=== PATIENT | female | born 1960 | race Caucasian/White ===

== ENCOUNTER 2019-10-18 07:35 | Outpatient (CLI) | payer MEDICARE, MEDICAID, SELFPAY ==
--- NOTE | ~2019-10-18 | MM_ITS ---
EXAMINATION: MM screening tanner BI w pamela HISTORY: Screening mammogram, family history of breast cancer in her mother. TECHNIQUE: Craniocaudal and mediolateral oblique 3-D tomosynthesis images were obtained and synthetic 2-D images were generated. CAD analysis was submitted and interpreted. COMPARISON: No prior mammogram is available for comparison at this institution. BREAST PARENCHYMAL COMPOSITION: There are scattered areas of fibroglandular density. FINDINGS: RIGHT BREAST: There are grouped calcifications in the posterior third of the lower, slightly outer br east best appreciated 13 cm from the nipple on the craniocaudal view. LEFT BREAST: A mass is present in the middle third of the upper inner breast 11 cm from the nipple be st appreciated on the mediolateral oblique view. IMPRESSION: 1. Bilateral breast findings which may represent the patient's baseline however no comparison is curr ently available. 2. Comparison with prior mammograms is necessary. BI-RADS Category 0: Incomplete: Needs comparison with prior mammograms. Reviewed, dictated and finalized at location A. IMPRESSION: 1. Bilateral breast findings which may represent the patient's baseline however no comparison is currently available. 2. Comparison with prior mammograms is necessary. BI-RADS Category 0: Incomplete: Needs comparison with prior mammograms.
[2019-10-18 08:16] LABS: Hemoglobin A1C 9.8 % (<5.7)
[2019-10-18 08:38] LABS: Alanine Aminotransferase 51 U/L (14-59); Albumin Level 2.7 g/dL (3.4-5.0); Alkaline Phosphatase 82 U/L (46-116); Anion Gap 3 mmol/L (8-16); Aspartate Amino Transferase 31 U/L (15-37); Bilirubin,Total 0.3 mg/dL (0.00-1.00); Blood Urea Nitrogen 15 mg/dL (7-18); Calcium 8.8 mg/dL (8.5-10.1); Carbon Dioxide 34 mmol/L (21-32); Chloride 104 mmol/L (98-108); Estimated Glomerular Filt Rate > 60; Glucose 163 mg/dL (70-99); Osmolality Calculated 296 mOsm/kg (285-295); Potassium 4.5 mmol/L (3.5-5.1); Sodium 141 mmol/L (136-145); Total Protein 6.6 g/dL (6.4-8.2)
[2019-10-18 08:41] LABS: Free T4 Free Thyroxine Reflex 1.07 ng/dL (0.76-1.46); Thyroid Stimulating Hormone Reflex 3.75 u/IU/mL (0.36-3.74)
== END 2019-10-18 07:36 | disposition home or self-care (01) ==
PROVIDERS: PCP Family Medicine
DX: R79.89 Other specified abnormal findings of blood chemistry (principal); E11.9 Type 2 diabetes mellitus without complications; Z12.31 Encounter for screening mammogram for malignant neoplasm of breast
CPT/HCPCS: 36415; 77063; 77067; 80053; 83036; 84439; 84443

== ENCOUNTER 2020-05-12 09:53 | Outpatient (CLI) | payer MEDICARE, SELFPAY ==
[2020-05-12 10:21] LABS: Add Urine Microscopic? YES; Appearance Urine Clear (Clear); Bilirubin Urine Negative (Negative); Blood Urine 2+ (Negative); Color Urine Yellow (Yellow); Glucose Urine UA Negative (Negative); Ketones Urine Negative (Negative); Leukocyte Esterase Ur 1+ LEU/UL (Negative); Nitrate Urine Negative (Negative); Protein Urine Trace (Negative); Specific Grav Ur 1.025 (1.010-1.020); Urobilinogen Urine 0.2 mg/dL (0.2-1.0)
[2020-05-12 10:26] LABS: Bacteria Urine 2+ /hpf; Squamous Epithelial Cell Urine Moderate /hpf (Few); WBC Urine 0-3 /hpf (0-3)
[2020-05-12 10:30] LABS: Hemoglobin A1C 7.2 % (<5.7)
[2020-05-12 11:03] LABS: Alanine Aminotransferase 21 U/L (14-59); Albumin Level 2.9 g/dL (3.4-5.0); Alkaline Phosphatase 79 U/L (46-116); Anion Gap 6 mmol/L (8-16); Aspartate Amino Transferase 17 U/L (15-37); Bilirubin,Total 0.5 mg/dL (0.00-1.00); Blood Urea Nitrogen 18 mg/dL (7-18); Calcium 8.6 mg/dL (8.5-10.1); Carbon Dioxide 36 mmol/L (21-32); Chloride 102 mmol/L (98-108); Cholesterol 132 mg/dL (0-200); Estimated Glomerular Filt Rate > 60; Glucose 90 mg/dL (70-99); HDL Direct 33 mg/dL (40-60); LDL Cholesterol Calculated 75 mg/dL (<130); Osmolality Calculated 299 mOsm/kg (285-295); Potassium 4.6 mmol/L (3.5-5.1); Sodium 144 mmol/L (136-145); Total Protein 6.6 g/dL (6.4-8.2); Triglycerides 122 mg/dL (0-150)
== END 2020-05-12 09:54 | disposition home or self-care (01) ==
PROVIDERS: PCP Family Medicine
DX: E78.2 Mixed hyperlipidemia (principal); E11.9 Type 2 diabetes mellitus without complications; R03.0 Elevated blood-pressure reading, without diagnosis of hypertension; R35.0 Frequency of micturition
CPT/HCPCS: 36415; 80053; 80061; 81001; 83036; 87086; 87088

== ENCOUNTER 2020-08-12 07:07 | Outpatient (CLI) | payer MEDICARE, SELFPAY ==
[2020-08-12 07:43] LABS: Hemoglobin A1C 7.1 % (<5.7)
[2020-08-12 08:28] LABS: Alanine Aminotransferase 27 U/L (14-59); Albumin Level 2.8 g/dL (3.4-5.0); Alkaline Phosphatase 78 U/L (46-116); Anion Gap 5 mmol/L (8-16); Aspartate Amino Transferase 15 U/L (15-37); Bilirubin,Total 0.4 mg/dL (0.00-1.00); Blood Urea Nitrogen 19 mg/dL (7-18); Calcium 8.7 mg/dL (8.5-10.1); Carbon Dioxide 34 mmol/L (21-32); Chloride 105 mmol/L (98-108); Cholesterol 123 mg/dL (0-200); Estimated Glomerular Filt Rate > 60; Glucose 66 mg/dL (70-99); HDL Direct 35 mg/dL (40-60); LDL Cholesterol Calculated 74 mg/dL (<130); Osmolality Calculated 298 mOsm/kg (285-295); Potassium 4.3 mmol/L (3.5-5.1); Sodium 144 mmol/L (136-145); Total Protein 6.4 g/dL (6.4-8.2); Triglycerides 72 mg/dL (0-150)
== END 2020-08-12 07:08 | disposition home or self-care (01) ==
LOC: CHSLAB 07:12
PROVIDERS: PCP Family Medicine
DX: E78.2 Mixed hyperlipidemia (principal); E11.9 Type 2 diabetes mellitus without complications; R03.0 Elevated blood-pressure reading, without diagnosis of hypertension
CPT/HCPCS: 36415; 80053; 80061; 83036

== ENCOUNTER 2020-10-21 16:07 | Emergency (ER) | payer MEDICARE, MEDICAID, SELFPAY ==
--- NOTE | 2020-10-21 16:14 | ED.FEMALEGU ---
HPI - Female Genitourinary General Chief complaint: Urogenital-Female Stated complaint: UTI Source: patient and RN notes reviewed Mode of arrival: ambulatory Limitations: no limitations History of Present Illness MD elicited complaint: UTI Onset (ago): day(s) (1) Severity: moderate Quality of pain: sharp and burning Consistency: intermittent Vaginal discharge: none Vaginal bleeding: none Urinary symptoms: Urgency and Frequency Exacerbating factors: none Relieving factors: none Associated symptoms: denies other symptoms Treatment prior to arrival: none Sexual activity: No Patient : No Related Data Home Medications Medication Instructions Recorded Confirmed diclofenac sodium 75 mg PO BID 10/21/20 10/21/20 dulaglutide [Trulicity] 1.5 mg SUBCUT WEEKLY 10/21/20 10/21/20 furosemide 20 mg PO DAILY 10/21/20 10/21/20 glipizide 10 mg PO TID 10/21/20 10/21/20 insulin aspart U-100 [Novolog 30 unit SUBCUT TID 10/21/20 10/21/20 Flexpen U-100 Insulin] insulin degludec [Tresiba 100 unit SUBCUT HS 10/21/20 10/21/20 FlexTouch U-200] rosuvastatin 20 mg PO DAILY 10/21/20 10/21/20 topiramate 100 mg PO ONCE 10/21/20 10/21/20 Review of Systems Review of Systems: All systems reviewed & are unremarkable except as noted in HPI and below PMFSH Past Medical History Medical History (Updated 10/21/20 @ 16:54 by Edgard Robles MD) CHF (congestive heart failure) Hyperlipidemia Migraines Morbid obesity Type 2 diabetes mellitus Surgical History Surgical History (Updated 10/21/20 @ 16:50 by Edgard Robles MD) History of bilateral tubal ligation Social History Social History (Updated 10/21/20 @ 16:50 by Edgard Robles MD) Smoking status: Never smoker Alcohol intake: never Substance use: never Exam Const: General: healthy appearing and no acute distress Nutritional Appearance: well nourished and obese morbidly obese Orientation/consciousness: patient oriented x3 Other: female nurse in room during examination. HENMT: Head: normal to inspection Ears: external ears normal Eyes: General: appearance normal, both eyes and all related structures Conjunctivae: conjunctivae normal Pupils: Equal, round and reactive pupils present EOM: EOMs intact bilaterally Neck: Neck: normal visual inspection Resp: Effort & Inspection: normal respiratory effort Auscultation: clear to auscultation bilaterally Cardio: Rate: regular rate Rhythm: regular rhythm GI: GI Palp: Yes Soft to palpation and No Tenderness to palpation present (GI) Auscultation: normal bowel sounds : General: Yes no CVA tenderness Back/Spine/Pelvis: Cervical Spine: cervical ROM normal Thoracic/Lumbar Spine: thoraco-lumbar ROM normal Skin: General skin exam: normal color Rashes: no rashes Neuro: General: patient oriented x3, moves all extremities, no meningeal signs and no focal motor deficits Speech: normal speech Gait exam (Neuro): Normal gait present Extrem: General: normal to inspection and no clubbing, cyanosis or edema Psych: Mental Status: mental status grossly normal Affect: normal affect Attitude: cooperative Thought content: Yes Normal thought content present Course Vital Signs Vital signs: Vital Signs Temperature 36.7 C 10/21/20 16:15 Pulse Rate 92 10/21/20 16:15 Respiratory Rate 17 10/21/20 16:15 Blood Pressure 157/79 H 10/21/20 16:15 Pulse Oximetry 94 10/21/20 16:15 Temperature 36.7 C 10/21/20 16:15 Pulse Rate 92 10/21/20 16:15 Respiratory Rate 17 10/21/20 16:15 Blood Pressure 157/79 H 10/21/20 16:15 Pulse Oximetry 94 10/21/20 16:15 MDM - Female Genitourinary Lab Data Labs: Lab Results 10/21/20 Range/Units 16:16 Urine Color Light yellow (Yellow) Urine Appearance Cloudy A (Clear) Urine pH 7.0 (5.0-8.0) Ur Specific [place] 1.020 (1.010-1.020) Urine Protein 2+ H (Negative) Urine Glucose (UA) Negative (Negative) Urine Ketones Negative (Neg
[2020-10-21 16:15] VITALS: BP 157/79; PULSE 92; RESP 17; TEMP 36.7; O2SAT 94
[2020-10-21 16:40] LABS: Add Urine Microscopic? YES; Appearance Urine Cloudy (Clear); Bilirubin Urine Negative (Negative); Blood Urine 3+ (Negative); Color Urine Light Yellow (Yellow); Glucose Urine UA Negative (Negative); Ketones Urine Negative (Negative); Leukocyte Esterase Ur 2+ LEU/UL (Negative); Nitrate Urine Negative (Negative); Protein Urine 2+ (Negative); Urobilinogen Urine 0.2 mg/dL (0.2-1.0)
[2020-10-21 16:43] LABS: Bacteria Urine 1+ /hpf; Squamous Epithelial Cell Urine Few /hpf (Few); WBC Urine 21-30 /hpf (0-3)
[2020-10-21 16:57] VITALS: RESP 19
== END 2020-10-21 17:00 | disposition home or self-care (01) ==
PROVIDERS: Emergency Provider Emergency Medicine; PCP Family Medicine
DX: N30.00 Acute cystitis without hematuria (principal); I50.9 Heart failure, unspecified; E78.5 Hyperlipidemia, unspecified; E11.9 Type 2 diabetes mellitus without complications; Z79.4 Long term (current) use of insulin
CPT/HCPCS: 81001; 87077; 87086; 87088; 87186; 99283

== ENCOUNTER 2020-12-11 15:15 | Outpatient (CLI) | payer MEDICARE, SELFPAY ==
[2020-12-11 16:21] LABS: SARS-CoV-2 RNA PCR Negative (Negative)
== END 2020-12-11 15:16 | disposition home or self-care (01) ==
LOC: CHSLAB 15:17
PROVIDERS: PCP Family Medicine; Visit Provider Family Medicine
DX: R53.83 Other fatigue (principal); R11.0 Nausea; Z20.822 Contact with and (suspected) exposure to COVID-19
CPT/HCPCS: C9803; U0003; U0005

== ENCOUNTER 2020-12-17 07:47 | Outpatient (CLI) | payer MEDICARE, SELFPAY ==
[2020-12-17 08:21] LABS: Hemoglobin A1C 7.2 % (<5.7)
[2020-12-17 08:52] LABS: Alanine Aminotransferase 31 U/L (14-59); Albumin Level 2.8 g/dL (3.4-5.0); Alkaline Phosphatase 91 U/L (46-116); Anion Gap 8 mmol/L (8-16); Aspartate Amino Transferase 20 U/L (15-37); Bilirubin,Total 0.4 mg/dL (0.00-1.00); Blood Urea Nitrogen 13 mg/dL (7-18); Calcium 8.2 mg/dL (8.5-10.1); Carbon Dioxide 34 mmol/L (21-32); Chloride 102 mmol/L (98-108); Estimated Glomerular Filt Rate > 60; Glucose 81 mg/dL (70-99); Osmolality Calculated 297 mOsm/kg (285-295); Potassium 4.2 mmol/L (3.5-5.1); Sodium 144 mmol/L (136-145); Total Protein 6.5 g/dL (6.4-8.2)
[2020-12-17 08:53] LABS: Free T4 Free Thyroxine Reflex 1.05 ng/dL (0.76-1.46); Thyroid Stimulating Hormone Reflex 4.26 u/IU/mL (0.36-3.74)
[2020-12-19 14:20] LABS: Vitamin D 25 Hydroxy 12 ng/mL (30-100)
== END 2020-12-17 07:48 | disposition home or self-care (01) ==
LOC: CHSLAB 07:50
PROVIDERS: PCP Family Medicine
DX: E11.9 Type 2 diabetes mellitus without complications (principal); E03.9 Hypothyroidism, unspecified; E55.9 Vitamin D deficiency, unspecified
CPT/HCPCS: 36415; 80053; 82306; 83036; 84439; 84443

== ENCOUNTER 2021-03-11 13:47 | Outpatient (CLI) | payer MEDICARE, SELFPAY ==
[2021-03-12 21:12] LABS: SARS-CoV-2 RNA PCR Negative
== END 2021-03-11 13:48 | disposition home or self-care (01) ==
LOC: CHSLAB 13:51
PROVIDERS: PCP Family Medicine; Visit Provider Family Medicine
DX: Z20.822 Contact with and (suspected) exposure to COVID-19 (principal)
CPT/HCPCS: C9803; U0003; U0005

== ENCOUNTER 2021-04-04 20:14 | Observation (INO) | payer MEDICARE, MEDICAID, SELFPAY ==
--- NOTE | ~2021-04-04 | CT_ITS ---
EXAMINATION: CTA chest PE protocol DATE: 04/04/2021 22:54 INDICATION: Shortness of breath. TECHNIQUE: Computed tomography angiography (CTA) of the chest was performed with 100 mL Omnipaque-350 intravenous contrast timed to evaluate the pulmonary arteries. Coronal maximum intensity projection 3D-reconstructions were created by the technologist. Automated exposure control and iterative reconst ruction technique were employed. The dose-length product was 916.04 mGy-cm. COMPARISON: None. FINDINGS: There is mild atelectasis in the lungs. There are faint groundglass opacities in all lobes. No pleural effusion. The heart size is normal. No pericardial effusion. There is mild left hilar and mediastinal lymphadenopathy, likely reactive. There is no pulmonary embolus. There is diffuse hepati c steatosis. There is moderate thoracic spondylosis. IMPRESSION: 1. No pulmonary embolus. Sensitivity is mildly decreased by motion artifact. 2. Faint groundglass opacities in all lobes of the lungs, likely mild pulmonary edema. 3. Mild left hilar and mediastinal lymphadenopathy, likely reactive. Reviewed, dictated and finalized at location A. UMER INSIGHT MANAGER
--- NOTE | ~2021-04-04 | XR_ITS ---
EXAMINATION: XR chest 2V DATE: 04/04/2021 21:25 INDICATION: Shortness of breath. TECHNIQUE: Frontal and lateral views of the chest were obtained. COMPARISON: Chest 2 views 10/04/2014 FINDINGS: The chest demonstrates clear lungs without pneumonia, pleural effusion, or pneumothorax. Th e heart size is normal. IMPRESSION: 1. No acute cardiopulmonary disease. Reviewed, dictated and finalized at location E. KBOOKS BOOKKEEPER
--- NOTE | ~2021-04-04 | CT_ITS ---
EXAMINATION: CT brain wo con DATE: 04/04/2021 21:24 INDICATION: Headache. TECHNIQUE: Computed tomography (CT) of the head was performed without intravenous contrast. The mA wa s adjusted according to patient size. Iterative reconstruction technique was employed. The dose-lengt h product was 605.33 mGy-cm. COMPARISON: None FINDINGS: There is no intracranial hemorrhage, acute infarction, or abnormal intracranial mass lesion . The ventricles are normal in size. The paranasal sinuses are clear. The orbits are normal. The mast oid air cells are normal. IMPRESSION: 1. Normal brain. Reviewed, dictated and finalized at location E. LANDSCAPE ARCHITECT IMPRESSION: 1. Normal brain.
[2021-04-04 20:22] VITALS: BP 184/82; PULSE 89; RESP 18; TEMP 36.3; O2SAT 93
--- NOTE | 2021-04-04 20:47 | ECG_ITS ---
Measurements Intervals [place] Rate: 98 P: 51 OR: 140 QRS: 47 QRSD: 88 T: 37 QT: 339 QTc: 435 Interpretive Statements SINUS RHYTHM POSSIBLE LEFT ATRIAL ENLARGEMENT INCOMPLETE RIGHT BUNDLE BRANCH BLOCK BASELINE ARTIFACT- I, II, III, AVL, V5-V6 BORDERLINE ECG Electronically Signed On 04-05-2021 7:33:19 BAND BIAS MACHINE OPERATOR by Lucas Tsai D.O.
--- NOTE | 2021-04-04 20:57 | ED.HA ---
HPI - Headache General Chief Complaint: Headache Stated Complaint: headache, sob Time Seen by Provider: 04/04/21 20:57 Source: patient Mode of arrival: ambulatory Limitations: no limitations History of Present Illness HPI Narrative: this is a 60-year-old female with a history of diabetes hyperlipidemia and hypertension presents with headache states that she has had migraines in the past but this is similar but more intense lasting 3 days had tried some ibuprofen with minimal relief is a throbbing occipital and frontal with some no nausea vomiting no blurry vision no neurological deficits, the patient also states that she is having shortness of breath with no wheezing no chest pain for no abdominal pain no flank pain no fever chills. MD elicited complaint: headache Pertinent past history: migraines Onset (ago): day(s) Onset description: gradually Location: occipital Severity: moderate Pain scale (0-10): 6 Quality & Timing: aching, throbbing, progressively worsening and similar to previous headaches Exacerbating factors: none Relieving factors: rest and NSAIDs Related Data Home Medications Medication Instructions Recorded Confirmed diclofenac sodium 75 mg PO BID 10/21/20 04/04/21 dulaglutide [Trulicity] 1.5 mg SUBCUT WEEKLY 10/21/20 04/04/21 furosemide 20 mg PO DAILY 10/21/20 04/04/21 glipizide 10 mg PO TID 10/21/20 04/04/21 insulin aspart U-100 [Novolog 30 unit SUBCUT TID 10/21/20 04/04/21 Flexpen U-100 Insulin] insulin degludec [Tresiba 100 unit SUBCUT HS 10/21/20 04/04/21 FlexTouch U-200] rosuvastatin 20 mg PO DAILY 10/21/20 04/04/21 Allergies Allergy/AdvReac Type Severity Reaction Status Date / Time codeine Allergy Hives Verified 04/04/21 20:44 Review of Systems Review of Systems: All systems reviewed & are unremarkable except as noted in HPI and below PMFSH Past Medical History Medical History CHF (congestive heart failure) Hyperlipidemia Migraines Morbid obesity Type 2 diabetes mellitus Surgical History Surgical History History of bilateral tubal ligation Social History Social History Smoking status: Never smoker Alcohol intake: never Substance use: never Exam Const: General: no acute distress and alert Orientation/consciousness: patient oriented x3 HENMT: Head: normal to inspection Eyes: Conjunctivae: conjunctivae normal Pupils: Equal, round and reactive pupils present EOM: EOMs intact bilaterally Direct Ophthalmoscopy: no photophobia Neck: Neck: normal visual inspection, no lymphadenopathy and no meningeal signs Chest: Chest palpation & inspection: normal inspection of the chest Resp: Effort & Inspection: normal respiratory effort Auscultation: clear to auscultation bilaterally Cardio: Rate: regular rate Rhythm: regular rhythm GI: GI Palp: Yes Soft to palpation : General: Yes no CVA tenderness Urinary Catheter: Urinary Catheter: patent and draining Back/Spine/Pelvis: Back: no CVA tenderness Skin: General skin exam: normal color Rashes: no rashes Neuro: General: patient oriented x3 and moves all extremities Psych: Mental Status: mental status grossly normal Affect: normal affect Course Course Emergency Course: Patient received 30 of IV Toradol, IV was placed and blood glucose level of 37, the patient receiving D5, EKG was reviewed, CT scan and chest x-ray reviewed, the patient had COVID test performed and labs reviewed with patient. Vital Signs Vital signs: Vital Signs Temperature 36.3 C L 04/04/21 20:22 Pulse Rate 89 04/04/21 20:22 Respiratory Rate 18 04/04/21 20:22 Blood Pressure 184/82 H 04/04/21 20:22 Pulse Oximetry 93 04/04/21 20:22 Temperature 36.3 C L 04/04/21 20:22 Pulse Rate 84 04/05/21 00:03 Respiratory Rate 20 04/05/21 00:03 Blood Pressure 159/79
[2021-04-04 21:06] LABS: Glucose Point of Care 37 mg/dl (65-105)
--- NOTE | 2021-04-04 21:08 | PC.NURSE ---
Pt c/o low blood sugar due to taking insulin and not eating dinner. Pt stated that she felt like she was sweating and having hot flashes. RN took a finger stick and got 37. Pt drank an orange juice, an orange juice with three extra sugars, and a ham sandwich.
[2021-04-04] MEDS: DEXTROSE 5% 1,000 ML 1,000 ML 100 ML IV CONT (21:24)
[2021-04-04] MEDS: KETOROLAC 30 MG/ML VIAL (*BKC) IV PUSH (21:25)
[2021-04-04 21:32] LABS: Glucose Point of Care 65 mg/dl (65-105)
[2021-04-04 21:55] LABS: Basophils Absolute Auto 0.02 K/mm3 (0.00-0.10); Basophils Percent Auto 0.2 % (0.0-1.0); Eosinophils Absolute Auto 0.27 K/mm3 (0.02-0.50); Eosinophils Percent Auto 2.6 % (1.0-6.0); Hematocrit 48.7 % (35.0-49.0); Hemoglobin 14.1 g/dL (12.0-15.0); Immature Granulocyte Absolute 0.09 K/mm3 (0.00-0.00); Immature Granulocyte Percent A 0.9 % (0.0-0.0); Lymphocytes Absolute Auto 2.54 K/mm3 (1.10-4.50); Lymphocytes Percent Auto 24.7 % (18.0-42.0); Mean Corpuscular Hemoglobin 24.7 pg (27.0-31.0); Mean Corpuscular Volume 85.4 fL (78.0-102.0); Mean Platelet Volume 10.6 fl (9.2-11.8); Monocytes Absolute Auto 0.56 K/mm3 (0.10-0.90); Monocytes Percent Auto 5.5 % (2.0-11.0); Neutrophils Absolute Auto 6.8 K/mm3 (1.7-7.2); Neutrophils Percent Auto 66.1 % (50.0-70.0); Platelet Count Result 295 K/mm3 (150-420); Red Cell Distribution Width 16.3 % (11.6-14.4); White Blood Count 10.3 K/mm3 (4.8-10.8)
[2021-04-04 22:00] VITALS: BP 162/72; PULSE 88; RESP 18; O2SAT 93
[2021-04-04 22:07] LABS: Lactic Acid Reflex 1.3 mmol/L (0.4-2.0)
--- NOTE | 2021-04-04 22:07 | PC.NURSE ---
RN rechecked blood sugar after pt returned from x-ray. Pt is at 65. Pt also notes other symptoms have been resolved.
[2021-04-04 22:16] LABS: Appearance Urine Clear (Clear); Bilirubin Urine Negative (Negative); Color Urine Light Yellow (Yellow); Glucose Urine UA Negative (Negative); Ketones Urine Negative (Negative); Leukocyte Esterase Ur Negative (Negative); Nitrate Urine Negative (Negative); Protein Urine Negative (Negative); Urobilinogen Urine 0.2 mg/dL (0.2-1.0)
[2021-04-04 22:16] LABS: Alanine Aminotransferase 39 U/L (14-59); Albumin Level 2.7 g/dL (3.4-5.0); Alkaline Phosphatase 95 U/L (46-116); Anion Gap 8 mmol/L (8-16); Aspartate Amino Transferase 18 U/L (15-37); Bilirubin,Total 0.4 mg/dL (0.00-1.00); Blood Urea Nitrogen 15 mg/dL (7-18); Calcium 8.8 mg/dL (8.5-10.1); Carbon Dioxide 35 mmol/L (21-32); Chloride 101 mmol/L (98-108); Estimated CRCL calculation 75 ml/min; Estimated Glomerular Filt Rate > 60; Glucose 67 mg/dL (70-99); Osmolality Calculated 296 mOsm/kg (285-295); Potassium 3.1 mmol/L (3.5-5.1); Sodium 144 mmol/L (136-145); Total Protein 7.6 g/dL (6.4-8.2); Troponin I 35.2 ng/L (0.00-60.4)
[2021-04-04 22:17] LABS: NT Pro B Type Natriuretic Pept 261 pg/mL (0-125)
--- NOTE | 2021-04-04 22:19 | PC.NURSE ---
lab reports d-dimer 0.99 erp made aware
[2021-04-04 22:20] LABS: D Dimer 0.99 mg/L (0.19-0.50)
[2021-04-04 22:27] LABS: Add Urine Microscopic? YES; Blood Urine Trace-lysed (Negative); Squamous Epithelial Cell Urine Few /hpf (Few)
[2021-04-04 22:39] LABS: SARS-CoV-2 RNA PCR Negative (Negative)
[2021-04-04 23:10] LABS: Glucose Point of Care 61 mg/dl (65-105)
--- NOTE | 2021-04-04 23:11 | PC.NURSE ---
RN rechecked glucose level and the glucometer reported 63. Pt received azar crackers and peanut butter with another orange juice.
[2021-04-04 23:15] VITALS: BP 119/96; PULSE 80; RESP 20; O2SAT 92
[2021-04-04] MEDS: KCL 20 MEQ/SW 100 ML 100 ML 50 MEQ IVPB (23:36)
[2021-04-05 00:03] VITALS: BP 159/79; PULSE 84; RESP 20; O2SAT 92
[2021-04-05 00:09] LABS: Glucose Point of Care 114 mg/dl (65-105)
[2021-04-05 01:10] VITALS: PULSE 77; RESP 20; O2SAT 88
[2021-04-05 01:35] VITALS: BP 165/75; PULSE 81; RESP 16; TEMP 36.6; O2SAT 97
[2021-04-05 01:43] LABS: Glucose Point of Care 89 mg/dl (65-105)
[2021-04-05 02:00] VITALS: BP 158/60; PULSE 76; RESP 20; TEMP 36.4; O2SAT 100
--- NOTE | 2021-04-05 02:14 | ADMGEN ---
This patient, Flory Diaz, was admitted to 2nd Floor Room 204-2. Patient oriented to hospital policies and general routines including ID bracelet, bed and alarms, visiting hours, pain management, procedures, bathroom and other care routines, personal items, smoking policy, room service/diet, and visiting hours. Information on how to activate the Rapid Response Team has been discussed. Patient are encouraged to report perceived risks to care and to ask questions if they do not understand what they are told or what they should do.
[2021-04-05 02:18] VITALS: BMI 54.6
--- NOTE | 2021-04-05 02:20 | PC.NURSE ---
Patient requested/given pudding and oj. Patient A&O and answered all questions. Call light in reach.
[2021-04-05 05:31] LABS: Hematocrit 46.1 % (35.0-49.0); Hemoglobin 13.3 g/dL (12.0-15.0); Mean Corpuscular HGB Conc 28.9 g/dL (32.0-36.0); Mean Corpuscular Hemoglobin 24.8 pg (27.0-31.0); Mean Corpuscular Volume 85.8 fL (78.0-102.0); Mean Platelet Volume 10.8 fl (9.2-11.8); Platelet Count Result 278 K/mm3 (150-420); Red Blood Count 5.37 M/mm3 (4.20-5.40); Red Cell Distribution Width 16.1 % (11.6-14.4); White Blood Count 8.5 K/mm3 (4.8-10.8)
[2021-04-05 05:54] LABS: Alanine Aminotransferase 37 U/L (14-59); Albumin Level 2.5 g/dL (3.4-5.0); Alkaline Phosphatase 86 U/L (46-116); Anion Gap 4 mmol/L (8-16); Aspartate Amino Transferase 17 U/L (15-37); Bilirubin,Total 0.5 mg/dL (0.00-1.00); Blood Urea Nitrogen 13 mg/dL (7-18); Calcium 8.8 mg/dL (8.5-10.1); Carbon Dioxide 37 mmol/L (21-32); Chloride 102 mmol/L (98-108); Estimated CRCL calculation 89 ml/min; Estimated Glomerular Filt Rate > 60; Glucose 124 mg/dL (70-99); Osmolality Calculated 297 mOsm/kg (285-295); Sodium 143 mmol/L (136-145)
[2021-04-05] MEDS: SODIUM CHLORIDE 0.9% IV 1,000 ML 100 ML IV CONT (06:25)
[2021-04-05 07:48] LABS: Glucose Point of Care 92 mg/dl (65-105)
[2021-04-05 08:00] VITALS: BP 163/72; PULSE 88; RESP 14; TEMP 36.4; O2SAT 97
[2021-04-05] MEDS: ROSUVASTATIN 10 MG TABLET 20 MG PO (09:17)
[2021-04-05] MEDS: FUROSEMIDE 20 MG TABLET PO (09:17)
[2021-04-05] MEDS: ENOXAPARIN 30 MG/0.3 ML SYRINGE SUB-Q (09:45)
--- NOTE | 2021-04-05 10:55 | PM.SD2 ---
Same Day Admit/Disch: HPI History of Present Illness Chief complaint: headache, sob Narrative: Flory Diaz is a 60 year old female that presented to the emergency department with complaints of a headache and shortness of breath. Patient has a past medical history of CHF, hyperlipidemia, migraine headaches, morbidly obese, and type 2 diabetes. According to patient for the last 3 days she has been having a headache that is more intense to her previous migraine headaches. Patient notes that while she was at home she did take ibuprofen with little relief. She also notes that she has had slight shortness of breath within thoses 3 days which could have possibly been anxiety due to her migraine headaches. Vital signs 163/72, 88, 14, 97.5, 97% on 2 L nasal cannula, WBCs 10.3, hemoglobin 14.1, hematocrit 48.7, platelets 295, D-dimer 0.99, sodium 144, potassium 3.1, BUN 15, creatinine 0.94, glucose 67, lactic acid 1.3, AST 18, ALT 39, troponin 35.2, BNP 261, UA with trace of blood, Covid negative, chest x-ray unremarkable, head CT normal, CTA indicates mild pulmonary edema no PE noted, EKG sinus rhythm with a heart rate of 98. Patient was admitted for hypoglycemia and hypokalemia. Before leaving ED patient condition resolved. The patient denies SOB, CP, palpitation, extremity numbness, lightheadedness, dizziness, constipation, diarrhea, chills, or fever. Patient headache resolved. Patient agrees that she is ready for discharge she has an appointment with her primary care physician next week. Discussed insulin adjustment with patient she has decided that she will wait till she sees her primary care physician next week for insulin adjustment change. Patient notes that her blood sugar bottom out because she gave herself insulin and did not eat after giving herself rapid insulin. Patient educated on hypoglycemia and informed to take her insulin right before eating and not sooner. [facility] Past Medical History Medical History CHF (congestive heart failure) Hyperlipidemia Migraines Morbid obesity Type 2 diabetes mellitus Surgical History Surgical History History of bilateral tubal ligation Family History Family History (Updated 04/05/21 @ 02:18 by Domonique G. Windham, RN) Father Diabetes mellitus Malignant neoplasm of prostate Heart disease Social History Social History Smoking status: Never smoker Second hand tobacco smoke exposure: No Alcohol intake: former Substance use: never Spiritual care concerns: No Same Day Admit/Disch: Med Pre-admit Medications Home Medications Medication Instructions Recorded Confirmed Type Tresiba FlexTouch U-200 100 unit SUBCUT HS 10/21/20 04/04/21 History Trulicity 1.5 mg SUBCUT WEEKLY 10/21/20 04/04/21 History diclofenac sodium 75 mg PO BID 10/21/20 04/04/21 History furosemide 20 mg PO DAILY 10/21/20 04/04/21 History glipizide 10 mg PO TID 10/21/20 04/04/21 History insulin aspart U-100 [Novolog 30 unit SUBCUT TID 10/21/20 04/04/21 History Flexpen U-100 Insulin] rosuvastatin 20 mg PO DAILY 10/21/20 04/04/21 History glucose [Dex4 Glucose] 4 g PO Q15M PRN #90 tablet 04/05/21 Rx lisinopril-hydrochlorothiazide 1 tablet PO DAILY #60 tablet 04/05/21 Rx potassium chloride 20 meq PO DAILY #60 tablet 04/05/21 Rx sumatriptan 20 mg INTRANASAL Q2H PRN #6 ea 04/05/21 Rx Exam Narrative: GENERAL: The obese, in no apparent distress. HEAD: normocephalic, atraumatic. EYES: PERRL. Sclera clear/white. Vision is grossly intact. EARS: External ears normal, auditory canals clear and without drainage, TMs normal without perforation. Hearing grossly intact. NOSE: External nose normal with no obvious nasal discharge, nares without redness, no rhinorrhea. THROAT: Mucous membranes moist, posterior pharynx clear. NECK: Neck supple, non-tender without
[2021-04-05 11:53] LABS: Glucose Point of Care 154 mg/dl (65-105)
[2021-04-05] MEDS: ENOXAPARIN 40 MG/0.4 ML SYRINGE (12:28)
--- NOTE | 2021-04-06 16:21 | PC.NURSE ---
Pt states she received and understood her discharge instructions. Pt also states they were all great .
== END 2021-04-05 12:40 | disposition home or self-care (01) ==
LOC: CHSED 04-05 01:00 → CHS2ND 04-05 10:32
PROVIDERS: Nurse Practitioner; Admitting Provider Emergency Medicine; Emergency Provider Emergency Medicine; Visit Provider Emergency Medicine
DX: E11.649 Type 2 diabetes mellitus with hypoglycemia without coma (principal); G43.909 Migraine, unspecified, not intractable, without status migrainosus; E87.6 Hypokalemia; I11.0 Hypertensive heart disease with heart failure; I50.9 Heart failure, unspecified; E78.5 Hyperlipidemia, unspecified; Z20.822 Contact with and (suspected) exposure to COVID-19; Z79.4 Long term (current) use of insulin; R79.1 Abnormal coagulation profile
CPT/HCPCS: 36415; 70450; 71046; 71275; 80053; 81001; 82948; 83605; 83880; 84484; 85025; 85027; 85380; 87040; 93005; 96361; 96365; 96366; 96368; 96372; 96375; 99285; A9270; C9803; G0378; J1650; J1885; J3480; J7030; J7070; Q9967; U0003; U0005

== ENCOUNTER 2021-04-13 07:40 | Outpatient (CLI) | payer MEDICARE, SELFPAY ==
[2021-04-13 08:52] LABS: Hemoglobin A1C 6.8 % (<5.7)
[2021-04-13 09:51] LABS: Alanine Aminotransferase 24 U/L (14-59); Albumin Level 2.7 g/dL (3.4-5.0); Alkaline Phosphatase 87 U/L (46-116); Anion Gap 4 mmol/L (8-16); Aspartate Amino Transferase 15 U/L (15-37); Bilirubin,Total 0.4 mg/dL (0.00-1.00); Blood Urea Nitrogen 22 mg/dL (7-18); Calcium 8.6 mg/dL (8.5-10.1); Carbon Dioxide 33 mmol/L (21-32); Chloride 102 mmol/L (98-108); Estimated Glomerular Filt Rate 60; Free T4 Free Thyroxine 0.94 ng/dL (0.76-1.46); Glucose 137 mg/dL (70-99); Osmolality Calculated 293 mOsm/kg (285-295); Potassium 4.6 mmol/L (3.5-5.1); Sodium 139 mmol/L (136-145); Thyroid Stimulating Hormone 7.04 uIU/mL (0.36-3.74); Total Protein 6.5 g/dL (6.4-8.2)
[2021-04-16 14:11] LABS: Vitamin D 25 Hydroxy 11 ng/mL (30-100)
== END 2021-04-13 07:41 | disposition home or self-care (01) ==
LOC: CHSLAB 07:43
PROVIDERS: PCP Family Medicine
DX: E11.9 Type 2 diabetes mellitus without complications (principal); E03.8 Other specified hypothyroidism; E55.9 Vitamin D deficiency, unspecified
CPT/HCPCS: 36415; 80053; 82306; 83036; 84439; 84443

== ENCOUNTER 2021-04-21 11:48 | Outpatient (CLI) | payer MEDICARE, MEDICAID, SELFPAY ==
--- NOTE | 2021-04-21 12:20 | ECHO_ITS ---
Patient Info Name: Flory Diaz Age: 60 years : 1960 Gender: Female Ht: 64 in Wt: 290 lbs BSA: 2.52 m2 HR: 88 bpm BP: 112 / 64 mmHg Technical Quality: Poor Exam Date: 04/21/2021 1:08 PM Exam Location: [facility], [place] Patient Status: Outpatient Admit Date: 04/21/2021 Staff Ordering Physician: Lakshmi Reyes MD High Speed Warper Tender: Darline Lewis Attending Provider: Lakshmi Reyes MD Referring Physician: Eric STEIN; Exam Type: CA echo doppler color flow Study Info Indications R06.02 - Shortness of breath Complete two-dimensional, color flow and Doppler transthoracic echocardiogram is performed. Summary 1. Complete two-dimensional, color flow and Doppler transthoracic echocardiogram is performed. 2. Technically suboptimal study due to poor sonographic images. Definity contrast not utilized. 3. Left ventricular systolic function is preserved, estimated at 50-55%. Unable to assess for regional wall motion abnormalities. 4. Left ventricular chamber dimension is normal. 5. The left ventricular diastolic function is normal. 6. No pulmonary hypertension, estimated pulmonary arterial systolic pressure is 26 mmHg. Left Ventricle Technically suboptimal study due to poor sonographic images. Definity contrast not utilized. E/e' 7 is not elevated. Left ventricular systolic function is preserved, estimated at 50-55%. Unable to assess for regional wall motion abnormalities. Left ventricular chamber dimension is normal. The left ventricular diastolic function is normal. Right Ventricle Right ventricular chamber dimension is not well visualized. Left Atria Left atrial chamber dimension is normal. Right Atria Right atrial chamber dimension is not well visualized. Aortic Valve The aortic valve is trileaflet. There is no aortic valve stenosis. There is no aortic valve regurgitation. Pulmonic Valve The pulmonic valve is not well visualized. Mitral Valve There is no mitral valve stenosis. There is no mitral valve regurgitation. Tricuspid Valve There is no tricuspid valve regurgitation. No pulmonary hypertension, estimated pulmonary arterial systolic pressure is 26 mmHg. Pericardium/Pleural There is no pericardial effusion. Inferior Vena Cava Normal inferior vena cava with >50% collapse upon inspiration consistent with normal right atrial pressure, 5 mmHg. Aorta The aortic root size at the sinus of Valsalva is not well visualized. Left Ventricular Outflow Tract Name Value Normal LVOT 2D LVOT Diameter 1.9 cm LVOT Doppler LVOT Peak Velocity 117 cm/s LVOT Peak Gradient 5 mmHg LVOT Mean Gradient 4 mmHg LVOT VTI 26 cm LVOT VTI/AV VTI Ratio 0.9 LVOT Stroke Volume 76 ml Mitral Valve Name Value Normal MV Doppler
== END 2021-04-21 11:49 | disposition home or self-care (01) ==
LOC: CHSIMG 11:51
PROVIDERS: PCP Family Medicine
DX: R06.02 Shortness of breath (principal)
CPT/HCPCS: 93306

== ENCOUNTER 2021-07-20 09:16 | Outpatient (CLI) | payer MEDICARE, SELFPAY ==
[2021-07-20 09:44] LABS: Hemoglobin A1C 7.5 % (<5.7)
[2021-07-20 10:13] LABS: Alanine Aminotransferase 25 U/L (14-59); Albumin Level 2.8 g/dL (3.4-5.0); Alkaline Phosphatase 110 U/L (46-116); Anion Gap 4 mmol/L (8-16); Aspartate Amino Transferase 23 U/L (15-37); Bilirubin,Total 0.5 mg/dL (0.00-1.00); Blood Urea Nitrogen 17 mg/dL (7-18); Calcium 8.8 mg/dL (8.5-10.1); Carbon Dioxide 35 mmol/L (21-32); Chloride 102 mmol/L (98-108); Cholesterol 182 mg/dL (0-200); Estimated Glomerular Filt Rate > 60; Glucose 113 mg/dL (70-99); HDL Direct 34 mg/dL (40-60); LDL Cholesterol Calculated 120 mg/dL (<130); Osmolality Calculated 294 mOsm/kg (285-295); Potassium 4.5 mmol/L (3.5-5.1); Sodium 141 mmol/L (136-145); Total Protein 6.7 g/dL (6.4-8.2); Triglycerides 142 mg/dL (0-150)
[2021-07-20 10:15] LABS: Thyroid Stimulating Hormone Reflex 3.18 u/IU/mL (0.36-3.74)
== END 2021-07-20 09:17 | disposition home or self-care (01) ==
LOC: CHSLAB 09:20
DX: E78.2 Mixed hyperlipidemia (principal); E11.9 Type 2 diabetes mellitus without complications; E03.8 Other specified hypothyroidism
CPT/HCPCS: 36415; 80053; 80061; 83036; 84443

== ENCOUNTER 2021-08-26 09:11 | Outpatient (CLI) | payer MEDICARE, MEDICAID, SELFPAY ==
--- NOTE | ~2021-08-26 | MM_ITS ---
EXAMINATION: MM screening tanner BI w pamela HISTORY: Screening TECHNIQUE: Craniocaudal and mediolateral oblique 3-D tomosynthesis images were obtained and synthetic 2-D images were generated. CAD analysis was submitted and interpreted. COMPARISON: Comparison to multiple prior studies sequentially, with oldest reviewed study dated 10/18. BREAST PARENCHYMAL COMPOSITION: Breast composed of scattered areas of fibroglandular density FINDINGS: There is no evidence of suspicious mass, calcification, or architectural distortion to sugg est malignancy in either breast. There has been no suspicious interval change. IMPRESSION: 1. No mammographic evidence of malignancy. 2. Recommend routine screening mammography in one year. BI-RADS Category 1: Negative Reviewed, dictated and finalized at location A.
== END 2021-08-26 09:12 | disposition home or self-care (01) ==
LOC: CHSIMG 09:15
PROVIDERS: PCP Family Medicine
DX: Z12.31 Encounter for screening mammogram for malignant neoplasm of breast (principal)
CPT/HCPCS: 77063; 77067

== ENCOUNTER 2021-10-21 07:46 | Outpatient (CLI) | payer MEDICARE, SELFPAY ==
[2021-10-21 08:17] LABS: Alanine Aminotransferase 22 U/L (14-59); Albumin Level 2.7 g/dL (3.4-5.0); Alkaline Phosphatase 86 U/L (46-116); Anion Gap 2 mmol/L (8-16); Aspartate Amino Transferase 18 U/L (15-37); Bilirubin,Total 0.4 mg/dL (0.00-1.00); Blood Urea Nitrogen 16 mg/dL (7-18); Calcium 8.8 mg/dL (8.5-10.1); Carbon Dioxide 35 mmol/L (21-32); Chloride 104 mmol/L (98-108); Cholesterol 127 mg/dL (0-200); Estimated Glomerular Filt Rate > 60; Glucose 80 mg/dL (70-99); HDL Direct 33 mg/dL (40-60); LDL Cholesterol Calculated 71 mg/dL (<130); Osmolality Calculated 292 mOsm/kg (285-295); Potassium 4.3 mmol/L (3.5-5.1); Sodium 141 mmol/L (136-145); Total Protein 6.9 g/dL (6.4-8.2); Triglycerides 115 mg/dL (0-150)
== END 2021-10-21 07:47 | disposition home or self-care (01) ==
LOC: CHSLAB 07:51
PROVIDERS: PCP Family Medicine
DX: E11.9 Type 2 diabetes mellitus without complications (principal); E78.2 Mixed hyperlipidemia
CPT/HCPCS: 36415; 80053; 80061; 83036

== ENCOUNTER 2021-12-17 07:47 | Emergency (ER) | payer MEDICARE, MEDICAID, SELFPAY ==
--- NOTE | ~2021-12-17 | XR_ITS ---
EXAMINATION: XR chest 1V portable 12/17/2021 08:30 INDICATION: Shortness of breath with cough PROCEDURE: AP portable chest COMPARISON: 04/04/2021 FINDINGS: The lungs are clear. The cardiomediastinal silhouette is within normal limits. There are no pleural effusions. There is no pneumothorax suspected. IMPRESSION: 1: NO ACUTE CARDIOPULMONARY DISEASE. Reviewed, dictated and finalized at location B.
[2021-12-17 07:57] VITALS: BP 161/69; PULSE 86; RESP 22; TEMP 36.2; O2SAT 95
[2021-12-17 08:19] LABS: Basophils Absolute Auto 0.03 K/mm3 (0.00-0.10); Basophils Percent Auto 0.6 % (0.0-1.0); Eosinophils Absolute Auto 0.12 K/mm3 (0.02-0.50); Eosinophils Percent Auto 2.3 % (1.0-6.0); Hematocrit 45.7 % (35.0-49.0); Hemoglobin 13.8 g/dL (12.0-15.0); Immature Granulocyte Absolute 0.02 K/mm3 (0.00-0.00); Immature Granulocyte Percent A 0.4 % (0.0-0.0); Lymphocytes Absolute Auto 1.36 K/mm3 (1.10-4.50); Lymphocytes Percent Auto 26.1 % (18.0-42.0); Mean Corpuscular HGB Conc 30.2 g/dL (32.0-36.0); Mean Corpuscular Hemoglobin 25.7 pg (27.0-31.0); Mean Corpuscular Volume 85.3 fL (78.0-102.0); Mean Platelet Volume 11.1 fl (9.2-11.8); Monocytes Absolute Auto 0.52 K/mm3 (0.10-0.90); Neutrophils Absolute Auto 3.2 K/mm3 (1.7-7.2); Neutrophils Percent Auto 60.6 % (50.0-70.0); Platelet Count Result 204 K/mm3 (150-420); Red Blood Count 5.36 M/mm3 (4.20-5.40); Red Cell Distribution Width 15.1 % (11.6-14.4); White Blood Count 5.2 K/mm3 (4.8-10.8)
[2021-12-17 08:37] VITALS: PULSE 75; RESP 18; O2SAT 93
[2021-12-17] MEDS: IPRATROPIUM 0.5 MG/ALBUTEROL SULFATE 2.5 MG AMPUL.NEB 3 ML INHALATION (08:37)
[2021-12-17 08:39] LABS: Partial Thromboplastin Time 27.5 SEC (23.90-30.70); Prothrombin Time 10.9 Seconds (9.50-12.10)
[2021-12-17 08:42] LABS: Alanine Aminotransferase 20 U/L (14-59); Albumin Level 2.7 g/dL (3.4-5.0); Alkaline Phosphatase 82 U/L (46-116); Anion Gap 4 mmol/L (8-16); Aspartate Amino Transferase 17 U/L (15-37); Bilirubin,Total 0.4 mg/dL (0.00-1.00); Blood Urea Nitrogen 13 mg/dL (7-18); Calcium 8.4 mg/dL (8.5-10.1); Carbon Dioxide 35 mmol/L (21-32); Chloride 103 mmol/L (98-108); Estimated Glomerular Filt Rate > 60; Glucose 111 mg/dL (70-99); NT Pro B Type Natriuretic Pept 220 pg/mL (0-125); Osmolality Calculated 295 mOsm/kg (285-295); Potassium 3.8 mmol/L (3.5-5.1); Sodium 142 mmol/L (136-145)
[2021-12-17 08:47] VITALS: PULSE 73; RESP 16; O2SAT 97
[2021-12-17 08:55] LABS: Influenza A QL RT-PCR Negative (Negative); Influenza B QL RT-PCR Negative (Negative); SARS-CoV-2 RNA PCR Negative (Negative)
[2021-12-17 09:00] LABS: RSV RNA, RT-PCR Positive (Negative)
--- NOTE | 2021-12-17 09:02 | ED.SOB ---
HPI - SOB/Dyspnea General Chief Complaint: Shortness of Breath/Dyspnea Stated Complaint: COUGH SOB Time Seen by Provider: 12/17/21 07:49 Source: patient Mode of arrival: ambulatory Limitations: no limitations History of Present Illness HPI Narrative: this is a 61-year-old female that presents with some shortness of breath with some nonproductive cough with no fever chills no chest pain no abdominal pain. Patient was diagnosed with COVID back in October and felt like she has been having difficulty with her breathing since then. Currently having shortness of breath over the last couple days worsening with no audible wheezes, no retractions no history of asthma. Patient does have a history of diabetes and hypertension. MD elicited complaint: shortness of breath and cough Onset (ago): day(s) Timing: constant Severity: mild Related Data Home Medications Medication Instructions Recorded Confirmed diclofenac sodium 75 mg 75 mg PO BID 10/21/20 12/17/21 tablet,delayed release furosemide 20 mg tablet 20 mg PO DAILY PRN Edema 10/21/20 12/17/21 insulin aspart U-100 100 unit/mL 30 unit subcut TID 10/21/20 12/17/21 (3 mL) subcutaneous pen (Novolog Flexpen U-100 Insulin aspart) insulin degludec 200 unit/mL (3 90 unit subcut HS 10/21/20 12/17/21 mL) subcutaneous pen (Tresiba FlexTouch U-200 insulin) rosuvastatin 20 mg tablet 20 mg PO DAILY 10/21/20 12/17/21 Allergies Allergy/AdvReac Type Severity Reaction Status Date / Time codeine Allergy Hives Verified 04/04/21 20:44 Review of Systems Review of Systems: All systems reviewed & are unremarkable except as noted in HPI and below PMFSH Past Medical History Medical History CHF (congestive heart failure) Hyperlipidemia Migraines Morbid obesity Type 2 diabetes mellitus Surgical History Surgical History History of bilateral tubal ligation Family History Family History Father Diabetes mellitus Malignant neoplasm of prostate Heart disease Social History Social History Smoking status: Never smoker Second hand tobacco smoke exposure: No Alcohol intake: former Substance use: never Spiritual care concerns: No Exam Const: General: healthy appearing Limitations: no limitations HENMT: Head: normal to inspection Face and sinus: normal facial exam Eyes: Conjunctivae: conjunctivae normal Pupils: Equal, round and reactive pupils present EOM: EOMs intact bilaterally Neck: Neck: normal visual inspection, no lymphadenopathy and no meningeal signs Chest: Chest palpation & inspection: normal inspection of the chest Resp: Effort & Inspection: normal respiratory effort Auscultation: rhonchi and wheezes Cardio: Rate: regular rate Rhythm: regular rhythm GI: GI Palp: Yes Soft to palpation Auscultation: normal bowel sounds Urinary Catheter: Urinary Catheter: patent and draining Back/Spine/Pelvis: Back: no CVA tenderness Skin: General skin exam: normal color Rashes: no rashes Wounds: no wounds Neuro: General: patient oriented x3, moves all extremities and no meningeal signs Extrem: General: normal to inspection and no clubbing, cyanosis or edema Psych: Mental Status: mental status grossly normal Course Course Emergency Course: Reassessment of patient she states that she feels much better after a breathing treatment, labs reviewed with patient as well as chest x-ray which shows no acute cardiopulmonary a disease, patient is negative for COVID negative for flu but is positive for RSV Vital Signs Vital signs: Vital Signs Oxygen Delivery Room Air 12/17/21 07:48 Temperature 36.2 C L 12/17/21 07:57 Pulse Rate 73 12/17/21 08:47 Respiratory Rate 16 12/17/21 08:47 Blood Pressure 161/69 H 12/17/21
[2021-12-17 09:15] VITALS: BP 148/63; PULSE 74; RESP 20; O2SAT 93
== END 2021-12-17 09:39 | disposition home or self-care (01) ==
PROVIDERS: Emergency Provider Emergency Medicine; PCP Family Medicine
DX: J06.9 Acute upper respiratory infection, unspecified (principal); R05.9 Cough, unspecified; B97.4 Respiratory syncytial virus as the cause of diseases classified elsewhere; Z20.822 Contact with and (suspected) exposure to COVID-19; I50.9 Heart failure, unspecified; E78.5 Hyperlipidemia, unspecified; E11.9 Type 2 diabetes mellitus without complications; Z79.4 Long term (current) use of insulin
CPT/HCPCS: 36415; 71045; 80053; 83880; 84484; 85025; 85610; 85730; 87502; 94640; 99284; U0003; U0005

== ENCOUNTER 2022-01-25 07:59 | Outpatient (CLI) | payer MEDICARE, SELFPAY ==
[2022-01-25 08:33] LABS: Hemoglobin A1C 7.2 % (<5.7)
[2022-01-25 09:24] LABS: Alanine Aminotransferase 24 U/L (14-59); Albumin Level 2.8 g/dL (3.4-5.0); Alkaline Phosphatase 86 U/L (46-116); Anion Gap 6 mmol/L (8-16); Aspartate Amino Transferase 18 U/L (15-37); Bilirubin,Total 0.4 mg/dL (0.00-1.00); Blood Urea Nitrogen 18 mg/dL (7-18); Calcium 8.5 mg/dL (8.5-10.1); Carbon Dioxide 34 mmol/L (21-32); Chloride 107 mmol/L (98-108); Cholesterol 138 mg/dL (0-200); Estimated Glomerular Filt Rate > 60; Glucose 112 mg/dL (70-99); HDL Direct 39 mg/dL (40-60); LDL Cholesterol Calculated 81 mg/dL (<130); Osmolality Calculated 306 mOsm/kg (285-295); Potassium 4.7 mmol/L (3.5-5.1); Sodium 147 mmol/L (136-145); Total Protein 6.2 g/dL (6.4-8.2); Triglycerides 90 mg/dL (0-150)
== END 2022-01-25 08:00 | disposition home or self-care (01) ==
LOC: CHSLAB 08:01
PROVIDERS: PCP Family Medicine; Visit Provider Family Medicine
DX: E78.2 Mixed hyperlipidemia (principal); E11.9 Type 2 diabetes mellitus without complications; I10 Essential (primary) hypertension
CPT/HCPCS: 36415; 80053; 80061; 83036

== ENCOUNTER 2022-05-03 07:51 | Outpatient (CLI) | payer MEDICARE, SELFPAY ==
[2022-05-03 08:24] LABS: Hemoglobin A1C 7.6 % (<5.7)
[2022-05-03 08:54] LABS: Alanine Aminotransferase 22 U/L (14-59); Albumin Level 3.1 g/dL (3.4-5.0); Alkaline Phosphatase 85 U/L (46-116); Anion Gap 6 mmol/L (8-16); Aspartate Amino Transferase 23 U/L (15-37); Bilirubin,Total 0.6 mg/dL (0.00-1.00); Blood Urea Nitrogen 17 mg/dL (7-18); Calcium 9.1 mg/dL (8.5-10.1); Carbon Dioxide 33 mmol/L (21-32); Chloride 105 mmol/L (98-108); Estimated Glomerular Filt Rate 54; Glucose 94 mg/dL (70-99); Osmolality Calculated 299 mOsm/kg (285-295); Potassium 4.3 mmol/L (3.5-5.1); Sodium 144 mmol/L (136-145); Total Protein 7.3 g/dL (6.4-8.2)
== END 2022-05-03 07:52 | disposition home or self-care (01) ==
LOC: CHSLAB 07:55
PROVIDERS: PCP Family Medicine; Visit Provider Nurse Practitioner Family
DX: E11.9 Type 2 diabetes mellitus without complications (principal); I10 Essential (primary) hypertension
CPT/HCPCS: 36415; 80053; 83036

== ENCOUNTER 2022-09-07 07:40 | Outpatient (CLI) | payer MEDICARE, MEDICAID, SELFPAY ==
--- NOTE | ~2022-09-07 | MM_ITS ---
EXAMINATION: MM screening tanner BI w pamela HISTORY: Screening TECHNIQUE: Craniocaudal and mediolateral oblique 3-D tomosynthesis images were obtained and synthetic 2-D images were generated. CAD analysis was submitted and interpreted. COMPARISON: Comparison to multiple prior studies sequentially, with oldest reviewed study dated 10/18. BREAST PARENCHYMAL COMPOSITION: There are scattered areas of fibroglandular density. FINDINGS: The left breast is stable without evidence for malignancy. There is a developing mass in th e upper outer quadrant of the right breast posteriorly with adjacent tissue marker. IMPRESSION: 1. Developing right breast mass, upper outer quadrant posteriorly. 2. Additional mammographic views and possible breast ultrasound are recommended. BI-RADS Category 0: Incomplete: Needs additional imaging evaluation. Reviewed, dictated and finalized at location A. IMPRESSION: 1. Developing right breast mass, upper outer quadrant posteriorly. 2. Additional mammographic views and possible breast ultrasound are recommended . BI-RADS Category 0: Incomplete: Needs additional imaging evaluation.
[2022-09-07 08:07] LABS: Hemoglobin A1C 5.9 % (<5.7)
[2022-09-07 08:34] LABS: Alanine Aminotransferase 31 U/L (14-59); Albumin Level 2.8 g/dL (3.4-5.0); Alkaline Phosphatase 97 U/L (46-116); Anion Gap 4 mmol/L (8-16); Aspartate Amino Transferase 24 U/L (15-37); Bilirubin,Total 0.4 mg/dL (0.00-1.00); Blood Urea Nitrogen 17 mg/dL (7-18); Calcium 8.5 mg/dL (8.5-10.1); Carbon Dioxide 35 mmol/L (21-32); Chloride 105 mmol/L (98-108); Cholesterol 133 mg/dL (0-200); Estimated Glomerular Filt Rate > 60; Glucose 80 mg/dL (70-99); HDL Direct 36 mg/dL (40-60); LDL Cholesterol Calculated 73 mg/dL (<130); Osmolality Calculated 298 mOsm/kg (285-295); Potassium 4.2 mmol/L (3.5-5.1); Sodium 144 mmol/L (136-145); Total Protein 6.6 g/dL (6.4-8.2); Triglycerides 120 mg/dL (0-150)
== END 2022-09-07 07:41 | disposition home or self-care (01) ==
LOC: CHSIMG 07:43
PROVIDERS: PCP Nurse Practitioner Family; Visit Provider Nurse Practitioner Family
DX: Z12.31 Encounter for screening mammogram for malignant neoplasm of breast (principal); E11.9 Type 2 diabetes mellitus without complications; E78.2 Mixed hyperlipidemia; R92.8 Other abnormal and inconclusive findings on diagnostic imaging of breast
CPT/HCPCS: 36415; 77063; 77067; 80053; 80061; 83036

== ENCOUNTER 2022-09-13 09:09 | Outpatient (CLI) | payer MEDICARE, MEDICAID, SELFPAY ==
--- NOTE | ~2022-09-13 | MM_ITS ---
EXAMINATION: MM diagnostic mammo unilat RT HISTORY: Possible right breast mass on screening mammogram TECHNIQUE: Additional 3-D tomosynthesis images of the right breast were performed and synthetic 2-D i mages were generated. CAD analysis was submitted and interpreted. COMPARISON: 09/07/2022, 08/26/2021, 10/18/2019 FINDINGS: There is a return to baseline fibroglandular appearance with spot compression of the right breast in the area questioned on screening mammogram. IMPRESSION: 1. No mammographic evidence of malignancy. 2. Recommend routine screening mammography in one year. BI-RADS Category 1: Negative Reviewed, dictated and finalized at location D.
== END 2022-09-13 09:10 | disposition home or self-care (01) ==
LOC: CHSIMG 09:10
PROVIDERS: PCP Nurse Practitioner Family; Visit Provider Family Medicine Adolescent Medicine
DX: R92.8 Other abnormal and inconclusive findings on diagnostic imaging of breast (principal)
CPT/HCPCS: 77065

== ENCOUNTER 2022-12-08 14:40 | Outpatient (CLI) | payer MEDICARE, MEDICAID, SELFPAY ==
[2022-12-08 15:23] LABS: Creatinine Urine 100.89 mg/dL (40-278); MALB Creatinine Ratio 12.8 mg/g (0-30); Microalbumin Urine Random < 13.0 mg/L
[2022-12-08 15:38] LABS: Influenza A QL RT-PCR Negative (Negative); Influenza B QL RT-PCR Negative (Negative); SARS-CoV-2 RNA PCR Negative (Negative)
[2022-12-08 15:57] LABS: Alanine Aminotransferase 40 U/L (14-59); Albumin Level 2.7 g/dL (3.4-5.0); Alkaline Phosphatase 101 U/L (46-116); Anion Gap 6 mmol/L (8-16); Aspartate Amino Transferase 16 U/L (15-37); Bilirubin,Total 0.4 mg/dL (0.00-1.00); Blood Urea Nitrogen 14 mg/dL (7-18); Calcium 8.9 mg/dL (8.5-10.1); Carbon Dioxide 33 mmol/L (21-32); Chloride 107 mmol/L (98-108); Estimated Glomerular Filt Rate > 60; Glucose 116 mg/dL (70-99); Osmolality Calculated 303 mOsm/kg (285-295); Potassium 4.2 mmol/L (3.5-5.1); Sodium 146 mmol/L (136-145); Vitamin B12 487 pg/mL (193-986)
== END 2022-12-08 14:41 | disposition home or self-care (01) ==
LOC: CHSLAB 14:42
PROVIDERS: PCP Nurse Practitioner Family; Visit Provider Nurse Practitioner Family
DX: B34.9 Viral infection, unspecified (principal); E11.9 Type 2 diabetes mellitus without complications
CPT/HCPCS: 36415; 80053; 82043; 82607; 83036; 87636

== ENCOUNTER 2023-04-04 07:33 | Outpatient (CLI) | payer MEDICARE, SELFPAY ==
[2023-04-04 09:03] LABS: Hemoglobin A1C 6.8 % (<5.7)
[2023-04-04 09:07] LABS: Alanine Aminotransferase 30 U/L (14-59); Albumin Level 2.8 g/dL (3.4-5.0); Alkaline Phosphatase 78 U/L (46-116); Anion Gap 7 mmol/L (8-16); Aspartate Amino Transferase 20 U/L (15-37); Bilirubin,Total 0.4 mg/dL (0.00-1.00); Blood Urea Nitrogen 20 mg/dL (7-18); Calcium 8.7 mg/dL (8.5-10.1); Carbon Dioxide 33 mmol/L (21-32); Chloride 102 mmol/L (98-108); Cholesterol 144 mg/dL (0-200); Estimated Glomerular Filt Rate > 60; Glucose 74 mg/dL (70-99); HDL Direct 41 mg/dL (40-60); LDL Cholesterol Calculated 85 mg/dL (<130); Osmolality Calculated 295 mOsm/kg (285-295); Potassium 4.3 mmol/L (3.5-5.1); Sodium 142 mmol/L (136-145); Total Protein 6.3 g/dL (6.4-8.2); Triglycerides 89 mg/dL (0-150)
== END 2023-04-04 07:34 | disposition home or self-care (01) ==
LOC: CHSLAB 07:35
PROVIDERS: PCP Nurse Practitioner Family; Visit Provider Nurse Practitioner Family
DX: E78.5 Hyperlipidemia, unspecified (principal); E11.9 Type 2 diabetes mellitus without complications
CPT/HCPCS: 36415; 80053; 80061; 83036

== ENCOUNTER 2023-06-27 06:59 | Outpatient (CLI) | payer MEDICARE, MEDICAID, SELFPAY ==
[2023-06-27 07:33] LABS: Creatinine Urine 205.51 mg/dL (40-278); MALB Creatinine Ratio 6.3 mg/g (0-30); Microalbumin Urine Random < 13.0 mg/L
[2023-06-27 07:35] LABS: Hemoglobin A1C 7.1 % (<5.7)
[2023-06-27 08:03] LABS: Anion Gap 4 mmol/L (4-12); Blood Urea Nitrogen 16 mg/dL (7-18); Calcium 8.7 mg/dL (8.5-10.1); Carbon Dioxide 37 mmol/L (21-32); Chloride 104 mmol/L (98-108); Estimated Glomerular Filt Rate > 60; Glucose 93 mg/dL (70-99); Osmolality Calculated 301 mOsm/kg (285-295); Potassium 4.3 mmol/L (3.5-5.1); Sodium 145 mmol/L (136-145)
== END 2023-06-27 07:00 | disposition home or self-care (01) ==
LOC: CHSLAB 07:02
PROVIDERS: PCP Family Medicine Adolescent Medicine; Visit Provider Nurse Practitioner Family
DX: E11.9 Type 2 diabetes mellitus without complications (principal)
CPT/HCPCS: 36415; 80048; 82043; 83036

== ENCOUNTER 2023-10-26 08:34 | Emergency (ER) | payer MEDICARE, MEDICAID, SELFPAY ==
--- NOTE | ~2023-10-26 | XR_ITS ---
EXAMINATION: XR knee RT 3V DATE: 10/26/2023 09:26 INDICATION: Right knee pain and arthritis TECHNIQUE: Anteroposterior, 2 oblique and crosstable lateral views of the right knee were obtained COMPARISON: None. FINDINGS: Alignment is normal. No fracture. There is severe joint space narrowing in the medial compartment wh ich is best appreciated on the lateral projection. There is at least moderate joint space narrowing i n the lateral compartment and moderate space narrowing in the patellofemoral compartment. Moderate-si zed marginal osteophytes all 3 compartments. No joint effusion/layering lipohemarthrosis. Soft tissue s are unremarkable. IMPRESSION: 1. Severe medial compartment predominant tricompartmental osteoarthritis at the right knee. Reviewed, dictated and finalized at location A.
--- NOTE | 2023-10-26 09:23 | ED.LOWEXIN ---
HPI - Extremity Injury (Lower) General Chief Complaint: Extremity Injury, Lower Stated Complaint: R KNEE PAIN Time Seen by Provider: 10/26/23 09:06 Source: patient Mode of arrival: wheelchair History of Present Illness HPI Narrative: patient is 63-year-old female with significant past medical history that presents today for right knee pain. Patient states she has a history of chronic right knee pain. She states that she thinks she has a flare-up of that though now. She does have appointment this Tuesday at her orthopedics office. She states that she was sleeping in a recliner chair for last 7 days and thinks that her right knee locked up. She says she had again out of the chair and whatnot some stairs and this is what bothered. MD complaint: knee injury ( Right) Place: home Severity: mild Severity scale (1-10): 4 Relieving factors: nothing Exacerbating factors: weight bearing and movement Context: other ( sleeping in a recliner getting up and down) Associated symptoms: able to partially bear weight Other symptoms: none Related Data Home Medications Medication Instructions Recorded Confirmed cyclobenzaprine 5 mg tablet 5 mg PO TID PRN Muscle Spasm 09/20/22 10/26/23 tirzepatide 2.5 mg/0.5 mL 2.5 mg subcut WEEKLY 10/26/23 10/26/23 subcutaneous pen injector (Babatundeunyuval) Allergies Allergy/AdvReac Type Severity Reaction Status Date / Time codeine AdvReac Nausea and Verified 10/26/23 08:37 Vomiting Review of Systems Review of Systems: All systems reviewed & are unremarkable except as noted in HPI and below Constitutional: Constitutional: Reports as per HPI Eyes: Eyes: Reports no additional eye complaints ENT: Reports system reviewed and no additional complaints, except as documented Cardiovascular: Cardiovascular: Reports no additional cardiovascular complaints Respiratory: Respiratory: Reports no additional respiratory complaints Gastrointestinal: Gastrointestinal: Reports no additional gastrointestinal complaints Genitourinary: Genitourinary: Reports no additional female genitourinary complaints Musculoskeletal: Musculoskeletal: Reports as per HPI and Reports arthralgias ( right knee) Integumentary/Breasts: Skin/Breast: Reports system reviewed and no additional complaints, except as docu Neurologic: Reports system reviewed and no additional complaints, except as documented Psychiatric: Psychiatric: Reports no additional psychiatric complaints Endocrine: Endocrine: Reports no additional endocrine complaints Hematologic/Lymphatic: Hematologic/Lymphatic: Reports no additional hematologic/lymphatic complaints Allergic/Immunologic: Allergic/Immunologic: Reports no additional allergic/immunologic complaints [facility] Past Medical History Medical History CHF (congestive heart failure) Fibromyalgia Hyperlipidemia Migraines Morbid obesity Type 2 diabetes mellitus Surgical History Surgical History History of bilateral tubal ligation Family History Family History Father Diabetes mellitus Malignant neoplasm of prostate Heart disease Hypertension Mother Breast cancer Grandparent Diabetes mellitus Hypertension Heart disease Cerebrovascular accident Other Diabetes mellitus Hypertension Heart disease Social History Social History Smoking status: Never smoker Second hand tobacco smoke exposure: No Alcohol intake: former Substance use: never Substance use type: does not use Spiritual care concerns: No Exam Const: General: healthy appearing and no acute distress HENMT: Head: normal to inspection Ears: external ears normal Face/Nose/Sinus: Normal external nose present Face and sinus: normal facial exam Eyes: Conjunctivae: conjunctivae normal P
[2023-10-26] MEDS: CYCLOBENZAPRINE HCL 10 MG TABLET PO (09:32)
[2023-10-26] MEDS: KETOROLAC (*BKC) 60 MG/2 ML VIAL IM (09:32)
--- NOTE | 2023-10-26 10:09 | PC.NURSE ---
pt has decub to coccyx wound was cleaned with shur clens and meriplex pad applied
[2023-10-26 10:10] VITALS: BP 138/80; PULSE 72; RESP 18; O2SAT 100
== END 2023-10-26 10:10 | disposition home or self-care (01) ==
PROVIDERS: Emergency Provider Family Medicine; PCP Nurse Practitioner Family
DX: M17.0 Bilateral primary osteoarthritis of knee (principal); I50.9 Heart failure, unspecified; E11.9 Type 2 diabetes mellitus without complications; E78.5 Hyperlipidemia, unspecified; Z79.899 Other long term (current) drug therapy
CPT/HCPCS: 73562; 96372; 99283; A9270; J1885

== ENCOUNTER 2023-12-23 08:21 | Outpatient (CLI) | payer MEDICARE, SELFPAY ==
[2023-12-23 08:50] LABS: Hemoglobin A1C 6.1 % (<5.7)
[2023-12-23 09:47] LABS: Alanine Aminotransferase 36 U/L (14-59); Alkaline Phosphatase 82 U/L (46-116); Anion Gap 6 mmol/L (4-12); Aspartate Amino Transferase 22 U/L (15-37); Bilirubin,Total 0.5 mg/dL (0.00-1.00); Blood Urea Nitrogen 22 mg/dL (7-18); Calcium 9.1 mg/dL (8.5-10.1); Carbon Dioxide 35 mmol/L (21-32); Chloride 104 mmol/L (98-108); Cholesterol 130 mg/dL (0-200); Estimated Glomerular Filt Rate > 60; Glucose 54 mg/dL (70-99); HDL Direct 37 mg/dL (40-60); LDL Cholesterol Calculated 73 mg/dL (<130); Osmolality Calculated 301 mOsm/kg (285-295); Potassium 4.2 mmol/L (3.5-5.1); Sodium 145 mmol/L (136-145); Total Protein 6.6 g/dL (6.4-8.2); Triglycerides 98 mg/dL (0-150)
== END 2023-12-23 08:22 | disposition home or self-care (01) ==
LOC: CHSLAB 08:22
PROVIDERS: PCP Nurse Practitioner Family; Visit Provider Nurse Practitioner Family
DX: E11.9 Type 2 diabetes mellitus without complications (principal); E78.5 Hyperlipidemia, unspecified; Z79.4 Long term (current) use of insulin
CPT/HCPCS: 36415; 80053; 80061; 83036

== ENCOUNTER 2024-05-29 13:02 | Outpatient (CLI) | payer MEDICARE, MEDICAID, SELFPAY ==
--- NOTE | ~2024-05-29 | XR_ITS ---
EXAM/ PROCEDURE: XR lumbar spine 2-3V - 05/29/2024 13:06 CDT HISTORY: 63 years old Female with M54.42 - Lumbago with sciatica, left side COMPARISON: None available TECHNIQUE: Four view(s) FINDINGS/ IMPRESSION: There are no fractures or dislocations.Multilevel degenerative changes are seen with multilevel inter vertebral disc space narrowing and osteophyte formation. Grade 1 retrolisthesis of L2 over L3. Athero sclerotic calcifications are noted. Reviewed, dictated and finalized at location A.
--- OUTSIDE RECORDS SUMMARY | 2024-05-29 14:24 | XMS_ITS | Encounter Summary ---
Author Organization [facility] Address [facility] [place] [address] Care Team Providers Care Corporate Accountant Name Role Phone Be Pantoja MD Primary Care Provider [phone] Luke Garcia MD Unavailable Unavailable Beth Leal-BC Unavailable [phone] Lakshmi Reyes NP Primary Care Provider + [phone] Encounter Details Date Type Department Care Team (Late st Contact Info) Description 07/29/2018 Abstract [facility]FL CONVERSION [address] [place] [address] , Generic ConversionMD Social History Tobacco Use Types Packs/Day Years Used Date Smoking Tobacco: Never Comments Unknown Sex and Gender Information Value Date Recorded Sex Assigned at Female 04/02/2024 10:15 AM 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 Legal Sex Female 1:50 PM CDT Gender Identity Female 08/21/2021 9:18 AM CDT Sexual Orientation Straight 08/21/2021 9: 18 AM CDT Occupation Industry Job Start Date Job End Date unemployed Not on file Not on file Not on file documented as of this encounter Plan of Treatment Not on file documented as of this encounter Visit Diagnoses Not on filedocumented in this encounter Care Teams Corporate Accountant Relationship Specialty Start Date End Date Be Pantoja MD [address] [place] [address] PCP - General FAMILY PRACTICE 07/21/16 10/29/23 Beth Leal FNP-BC [address] [place] [address] PCP - Med Group - [facility] Attributed Provider 11/21/16 Lakshmi Reyes NP [address] [place] [address] PCP - General 10/30/23 Luke Garcia MD [address] [place] [address] [place] Polygraph Technician CARDIOVASCULAR DISEASE 07/21/16 02/28/19 documented as of this encounter
--- OUTSIDE RECORDS SUMMARY | 2024-05-29 14:24 | XMS_ITS ---
Author Organization [employer] [facility] Address [address] [place] [address] Care Team Providers Care Biology Teacher Name Role Phone JADEN CARO Unavailable [phone] Gianfranco Pantoja Unavailable Unavailable REASON FOR VISIT Palliation Medications Medication SIG (Take, Route, Frequency, Duration) Notes Start Date End Date Status NOVOLOG FLEX PEN for -2 *Pick strength- form from [employer] for eRX* 01/05/2022 Active Diclofenac for -2 *Reorder from [employer] for eRx and Interaction Alerts* 01/05/2022 Active hydroCHLOROthiazide for -2 *Pick streng th-form from [employer] for eRX* 01/05/2022 Active ROSUVASTATIN for -2 *Reorder from [employer] for eRx and Interaction Alerts* 01/05/2022 Active Furosemide for -2 *Pick strength-f orm from [employer] for eRX* 01/05/2022 Active CYCLOBENZAPRINE for -2 *Reorder from [employer] for eRx and Interaction Alerts* 01/05/2022 Active TRESIBA PEN for -2 *Reorder from [employer] for eRx and Interaction Alerts* 01/05/2022 Active Ibuprofen for -2 *Pick strength-f orm from [employer] for eRX* 01/05/2022 Active Vital Signs Blood pressure systolic 147 mm Hg 05/15/19 25 Blood pressure diastolic 80 mm Hg 025 Heart Rate 87 /min 05/14/2024 Height 64 in 05/14/2024 Weight 270 lbs 05/14/2024 BMI 46.34 kg/m2 05/14/2024 Height-cm 162.56 cm 05/14/2024 Weight-kg 122.47 kg 05/14/2024 Encounters Encounter Location Date Provider Diagnosis [facility] [address] [place] [address] 05/14/2024 JADEN CARO Tinea unguium B35.1 ; Type 2 diabetes mellitus with diabetic peripheral angiopathy without gangrene, unspecified whether half-way insulin use E11.51 and Plantar neuroma of left foot G57.62 Assessments Encounter Date Diagnosis (ICD Code) Assessment Notes Treatment Notes Treatment Clinical Notes Section Notes 05/14/2024 Tinea unguium (ICD-10 - B35.1) 05/14/2024 Type 2 diabetes mellitus with diabetic peripheral angiopathy without gangrene, unspecified whether intermediate teacher insulin use (ICD-10 - E11.51) We discussed preventative foot care. We discussed preventative foot hygiene. We instructed the patient on how to care for their feet, and to contact the office if any wounds develop, or signs of infection arise. The nails were debrided of all fungal material and debris. Debridement included a reduction in bulk of the nail by use of a sharp fabric cutter and/or rotary instrument. Reason for debridement include relief of pain, treatment of infection, temporary removal of an anatomic deformity such as onychauxis or onychocryptosis, exposure of subungual conditions for the purpose of treatment as well as diagnosis, and/or as a prophylactic measure to prevent further problems, such as subungual ulceration in an insensate patient with onychauxis. Antiseptic was applied. Debrided 10 nails. 05/14/2024 Plantar neuroma of left foot (ICD-10 - G57.62) Plan Of Treatment Treatment Notes Assessment Notes Type 2 diabetes mellitus wit h diabetic peripheral angiopathy without gangrene, unspecified whether intermediate teacher insulin use We discussed preventative foot care. We discussed preventative foot hygiene. We instructed the patient on how to care for their feet, and to contact the office if any wounds develop, or signs of infection arise. The nails were debrided of all fungal material and debris. Debridement included a reduction in bulk of the nail by use of a sharp fabric cutter and/or rotary instrument. Reason for debridement include relief of pain, treatment of infection, temporary removal of an anatomic deformity such as onychauxis or onychocryptosis, exposure of subungual conditions for the purpose of treatment as well as diagnosis, and/or as a prophylactic measure to prevent further problems, such as subungual ulceration in an insensate patient with onychauxis. Antiseptic was applied. Debrided 10 nails. Next Appt Details Follow Up: 2 Months, Reason: [facility] Provider Name:JADEN Dorina BARNEYGamal ANTHONY, 07/30/2024 04:15:00 PM, [address] [place], [address], Progress Notes * JESSE HARDENDOB:1960 ( 63 yo F)Acc No.[id number]:05/14/2024 Patient: JESSE HUTSON Provider: Teresa Caro DPM :1960 A ge:63 Y S ex:Female Date:05/14/2024 Address:[address] [place] [address] Subjective: * Chief Complaints: * P alliation * HPI: N ails: The patient relates t o having difficulty trimming their nails, that all of their nails are thickened, that all of their nails are discolored. D iabetic: The pt states they are being seen for diabetes managment b y Dr. Lakshmi Reyes, and they were most recently seen on 03/28/24. * Medical History: * Surgical History: * Hospitalization/Major Diagno stic Procedure: * Medications: T akingTRESIBA PEN , Notes to Pharmacist: *Reorder from [employer] for eRx and Interaction Alerts*Ibuprofen , Notes to Pharmacist: *Pick strength-form from [employer] for eRX*CYCLOBENZAPRINE , Notes to Pharmacist: *Reorder from [employer] for eRx and Interaction Alerts*NOVOLOG FLEX PEN , Notes to Pharmacist: *Pick strength-form from [employer] for eRX*Diclofenac , Notes to Pharmacist: *Reorder from [employer] for eRx and Interaction Alerts*hydroCHLOROthiazide , Notes to Pharmacist: *Pick strength- form from [employer] for eRX*ROSUVASTATIN , Notes to Pharmacist: *Reorder from [employer] for eRx and Interaction Alerts*Furosemide , Notes to Pharmacist: *Pick strength-form from [employer] for eRX*Taking TRESIBA PEN , Notes to Pharmacist: *Reorder from [employer] for eRx and Interaction Alerts*Taking Ibuprofen , Notes to Pharmacist: *Pick strength-form from [employer]pan for eRX*Taking CYCLOBENZAPRINE , Notes to Pharmacist: *Reorder from [employer] for eRx and Interaction Alerts*Taking NOVOLOG FLEX PEN , Notes to Pharmacist: *Pick strength-form from Medispan for eRX*Taking Diclofenac , Notes to Pharmacist: *Reorder from [employer] for eRx and Interaction Alerts*Taking hydroCHLOROthiazide , Notes to Pharmacist: *Pick strength-form from Medispan for eRX*Taking ROSUVASTATIN , Notes to Pharmacist: *Reorder from [employer] for eRx and Interaction Alerts*Taking Furosemide , Notes to Pharmacist: *Pick strength-form from Med[employer]pan for eRX* Objective: * Vitals: H t: 64 in, Wt:270lbs, BP:147/80mm Hg, HR:87/min, BMI:46.34Index, Wt-k.47 kg, Ht-cm: 162.56 cm, Body Surface Area: 2.35. * Examination: D ermatologic: Skin findings: b ilateral, cool and dry, no open ulcerations or interdigital macerations. Edema m oderate. Nail pathology: d igits 1-5, bilateral, discolored, thickened, with onychodystrophy, with subungual debris. V ascular: Dorsalis pedis pulse: 1 /4, right. Posterior tibial pulse: 0 /4, bilateral. Capillary refill: s lightly delayed, bilaterally. ? N eurologic: Afton-Weinstin 5.07 monofilament i ntact to the forefoot, intact to the midfoot, intact to the rearfoot. Diabetic Foot Exam L ower Extremity Neurological Exam performed: Y es. C lass Findings: Class B findings (Q8) A bsent posterior tibial pulse right, Absent posterior tibial pulse left, Absent dorsalis pedis pulse left, Hair decreased or absent, Nail thickening. M usculoskeletal: Foot morphology: n ormal. Strength n ormal strength, all muscle groups. Pain elicited with palpation of: f irst interspace, left foot. Pain elicited with range of motion: n o noted pain with range of motion. Footwear Eval F ootwear Evaluation performed: Y es. Assessment: * Assessment: 1. T ype 2 diabetes mellitus with diabetic peripheral angiopathy without gangrene, unspecified whether intermediate teacher insulin use - E11.51 (Primary) 2 . T inea unguium - B35.1 3 . P lantar neuroma of left foot - G57.62 Plan: * Treatment: * Procedure Codes: 1 1721 DEBRIDE NAIL, 6 OR MORE, Modifiers: Q8 * Follow Up: 2 Months (Reason: [facility]FC) * Billing Information: * Visit Code: * Procedure Codes: 40194 DEBRIDE NAIL, 6 OR MORE. Modifiers: Q8 * Sign off status: Completed true * Provider: Teresa Caro DPM Date: 0 05/14/2024 Generated for Severo kothari/Hanna/eTransmitting on: 0 05/29/2024 02:24 PM CDT History and Physical Notes * HPI (History of Present Illness) Category Sub-Category Detail Notes Category Not es Diabetic The pt states they a re being seen for diabetes managment by Dr. Lakshmi Reyes, and they were most recently seen on 03/28/24 Nails The patient relates to having di fficulty trimming their nails, that all of their nails are thickened, that all of their nails are discolored Examination Category Sub-Category Detail Notes Category Not es Dermatologic Skin findings: bilateral, cool and dry, no open ulcerations or interdigital macerations Nail pathology: digits 1-5, bilatera l, discolored, thickened, with onychodystrophy, with subungual debris Edema moderate Neurologic Afton-Weinstin 5.07 monofilamen t intact to the forefoot, intact to the midfoot, intact to the rearfoot Diabetic Foot Exam Lower Extremity Neurological Exam performed:: Yes Musculoskeletal Foot morphology: normal Pain elicited with palpation of: first i nterspace, left foot Pain elicited with range of motion: no n oted pain with range of motion Strength normal strength, all muscle groups Footwear Eval Footwear Evaluation performed:: Yes Vascular Dorsalis pedis pulse: 1/4, right Capillary refill: slightly delayed, bi laterally Posterior tibial pulse: 0/4, bilateral Class Findings Class B findings (Q8) Absent pos terior tibial pulse right, Absent posterior tibial pulse left, Absent dorsalis pedis pulse left, Hair decreased or absent, Nail thickening
--- OUTSIDE RECORDS SUMMARY | 2024-05-29 14:25 | XMS_ITS | Patient Health Record ---
Author Organization [facility] Address [address] [place] [address] Care Team Providers Care Senior Director Finance Name Role Phone JADEN CARO Unavailable [phone] Gianfranco Pantoja Unavailable Unavailable Reason For Referral No Information Medications Medication SIG (Take, Route, Frequency, Duration) Notes Start Date End Date Status CYCLOBENZAPRINE for -2 *Reorder from [employer] for eRx and Interaction Alerts* 01/05/2022 Active NOVOLOG FLEX PEN for -2 *Pick strength- [...] orm from Medis[employer] for eRX* 01/05/2022 Active TRESIBA PEN for -2 *Reorder from [employer] for eRx and Interaction Alerts* 01/05/2022 Active Ibuprofen for -2 *Pick strength-f orm from [employer] for eRX* 01/05/2022 Active Problems Problem Type SNOMED Code ICD Code Onset Dates Problem Status W/U Status Risk Notes Problem Type 2 diabetes mellitus with peripheral angiopathy (519051186) Type 2 diabetes mellitus with diabetic peripheral angiopathy without gangrene, unspecified whether independent marketing consultant insulin use (E11.51) Active confirmed Problem 561716414 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) Active confirmed Problem Tinea unguium (206666114) Tinea unguium (B35.1) 04/17/202 3 Active confirmed Problem Peripheral vascular disease (918093519) Other specified peripheral vascular diseases (I73.89) 3 Active confirmed Problem Nail dystrophy (93095688) Nail dystrophy (L60.3) 8 Active confirmed Problem Callosity (727711386) Corns and callosities (L84) 8 Active confirmed Problem Pes planus (86924420) Flat foot [pes planus] (acquired), left foot (M21.42) 8 Active confirmed Problem Finding relating to psychosocial functioning (968019930) Other specified problems related to psychosocial circumstances (Z65.8) 8 Active confirmed Problem Family history of ischemic heart disease (403992666) Family history of ischemic heart disease and other diseases of the circulatory system (Z82.49) 8 Active confirmed Problem Type 2 diabetes mellitus with peripheral angiopathy (354388602) Type 2 diabetes mellitus with diabetic peripheral angiopathy without gangrene (E11.51) 3 Active confirmed Vital Signs Heart Rate 87 /min 05/14/2024 Respiratory Rate 16 /min 02/03/2024 Height-cm 162.56 cm 05/14/2024 Blood pressure diastolic 80 mm Hg 05/14/2024 Weight-kg 122.47 kg 05/14/2024 Height 64 in 05/14/2024 Blood pressure systolic 147 mm Hg 05/14/2024 Weight 270 lbs 05/14/2024 BMI 46.34 kg/m2 05/14/2024 Encounters Encounter Location Date Provider Diagnosis [facility] [place] [address] 11/21/2023 JADEN CARO Tinea unguium B35.1 ; Type 2 diabetes mellitus with diabetic peripheral angiopathy without gangrene, unspecified whether halfway insulin use E11.51 and Plantar neuroma of left foot G57.62 [facility] [address] [place] [address] 02/03/2024 JADEN CARO Tinea unguium B35.1 ; Type 2 diabetes mellitus with diabetic peripheral angiopathy without gangrene, unspecified whether independent marketing consultant insulin use E11.51 and Plantar neuroma of left foot G57.62 [facility] [address] [place] [address] 05/14/2024 JADEN CARO Tinea unguium B35.1 ; Type 2 diabetes mellitus with diabetic peripheral angiopathy without gangrene, unspecified whether independent marketing consultant insulin use E11.51 and Plantar neuroma of left foot G57.62 Assessments Encounter Date Diagnosis (ICD Code) Assessment Notes Treatment Notes Treatment Clinical Notes Section Notes 11/21/2023 Tinea unguium (ICD-10 - B35.1) 02/03/2024 Tinea unguium (ICD-10 - B35.1) 05/14/2024 Tinea unguium (ICD-10 - B35.1) 05/14/2024 Type 2 diabetes mellitus with diabetic peripheral angiopathy without gangrene, unspecified whether halfway insulin use (ICD-10 - E11.51) We discussed [...] the nail by use of a sharp glove cutter and/or rotary instrument. Reason for debridement include relief of pain, treatment of infection, temporary removal of an anatomic deformity such as onychauxis or onychocryptosis, exposure of subungual conditions for the purpose of treatment as well as diagnosis, and/or as a prophylactic measure to prevent further problems, such as subungual ulceration in an insensate patient with onychauxis. Antiseptic was applied. Debrided 10 nails. 02/03/2024 Type 2 diabetes mellitus with diabetic peripheral angiopathy without gangrene, unspecified whether independent marketing consultant insulin use (ICD-10 - E11.51) We discussed [...] the nail by use of a sharp glove cutter and/or rotary instrument. Reason for debridement include relief of pain, treatment of infection, temporary removal of an anatomic deformity such as onychauxis or onychocryptosis, exposure of subungual conditions for the purpose of treatment as well as diagnosis, and/or as a prophylactic measure to prevent further problems, such as subungual ulceration in an insensate patient with onychauxis. Antiseptic was applied. Debrided 8 nails. Pt did not want her hallux nails debrided. 11/21/2023 Type 2 diabetes mellitus with diabetic peripheral angiopathy without gangrene, unspecified whether independent marketing consultant insulin use (ICD-10 - E11.51) We discussed [...] the nail by use of a sharp glove cutter and/or rotary instrument. Reason for debridement include relief of pain, treatment of infection, temporary removal of an anatomic deformity such as onychauxis or onychocryptosis, exposure of subungual conditions for the purpose of treatment as well as diagnosis, and/or as a prophylactic measure to prevent further problems, such as subungual ulceration in an insensate patient with onychauxis. Antiseptic was applied. Debrided 8 nails. Pt did not want her hallux nails debrided. 11/21/2023 Plantar neuroma of left foot (ICD-10 - G57.62) We discussed etiology of neuromas. We discussed progression of neuromas. We discussed conservative and surgical treatment options for neuromas. We discussed risks and benefits of neuroma surgery. We discussed steroid injections. We discussed risk of hammertoe formation with steroid injection and with surgical intervention. We discussed alcohol injection risks and benefits. We discussed proper shoe gear to try to relieve symptoms. We discussed stumped neuroma formation and missed branch neuromas. We discussed the risks and benefits of dorsal excision versus plantar excision. We discussed painful scar formation is possible with plantar surgical approach. Discussed treatment options. Pt did not want an injection. Discussed the need for support. Pt to get inserts with metatarsal pads. 02/03/2024 Plantar neuroma of left foot (ICD-10 - G57.62) We discussed etiology of neuromas. We discussed progression of neuromas. We discussed conservative and surgical treatment options for neuromas. We discussed risks and benefits of neuroma surgery. We discussed steroid injections. We discussed risk of hammertoe formation with steroid injection and with surgical intervention. We discussed alcohol injection risks and benefits. We discussed proper shoe gear to try to relieve symptoms. We discussed stumped neuroma formation and missed branch neuromas. We discussed the risks and benefits of dorsal excision versus plantar excision. We discussed painful scar formation is possible with plantar surgical approach. Discussed treatment options. Pt did not want an injection. Discussed the need for support. Pt to get inserts with metatarsal pads. 05/14/2024 Plantar neuroma of left foot (ICD-10 - G57.62) Plan Of Treatment Next Appt Details Provider Name:JADEN CRUZ, 07/30/2024 04:15:00 PM, [address] [place], [address], Insurance Providers Payer Name Payer Address Payer Phone Subscriber Number Group Number Insured Name Patient Relationship to Insured Coverage Start Date Coverage End Date [facility] MEDICARE ADVANTAGE [address] [address] [place] [address] [id number] JESSE HARDEN Self - patient is the insured 3 [place] DEPT OF PUBLIC AID [address] [address] [place] [address] [id number] JESSE HARDEN Self - patient is the insured
--- OUTSIDE RECORDS SUMMARY | 2024-05-29 14:25 | XMS_ITS ---
Author Organization [facility] Address [address] [place] [address] Care Team Providers Care Aviation Manager Name Role Phone JADEN CARO Unavailable [phone] Gianfranco Pantoja Unavailable Unavailable REASON FOR VISIT Palliation Vital Signs Blood pressure systolic 181 mm Hg 02/03/20 24 Blood pressure diastolic 68 mm Hg 024 Heart Rate 70 /min 02/03/2024 Respiratory Rate 16 /min 02/03/2024 Height 64 in 02/03/2024 Weight 289 lbs 02/03/2024 BMI 49.6 kg/m2 02/03/2024 Height-cm 162.56 cm 02/03/2024 Weight-kg 131.09 kg 02/03/2024 Encounters Encounter Location Date Provider Diagnosis [facility] [address] [place] [address] 02/03/2024 JADEN CARO Tinea unguium B35.1 ; Type 2 diabetes mellitus with diabetic peripheral angiopathy without gangrene, unspecified whether residential insulin use E11.51 and Plantar neuroma of left foot G57.62 Assessments Encounter Date Diagnosis (ICD Code) Assessment Notes Treatment Notes Treatment Clinical Notes Section Notes 02/03/2024 Tinea unguium (ICD-10 - B35.1) 02/03/2024 Type 2 diabetes mellitus with diabetic peripheral angiopathy without gangrene, unspecified whether residential insulin use (ICD-10 - E11.51) We discussed [...] the nail by use of a sharp nail setter and/or rotary instrument. Reason for debridement include [...] did not want her hallux nails debrided. 02/03/2024 Plantar neuroma of left foot (ICD-10 [...] Pt to get inserts with metatarsal pads. Plan Of Treatment Treatment Notes Assessment Notes Type 2 diabetes mellitus wit h diabetic peripheral angiopathy without gangrene, unspecified whether exterminator helper termite insulin use We discussed preventative foot care. We discussed preventative foot hygiene. We instructed the patient on how to care for their feet, and to contact the office if any wounds develop, or signs of infection arise. The nails were debrided of all fungal material and debris. Debridement included a reduction in bulk of the nail by use of a sharp nail setter and/or rotary instrument. Reason for debridement include [...] did not want her hallux nails debrided. Plantar neuroma of left foot We discussed etiology of neuromas. We discussed [...] Pt to get inserts with metatarsal pads. Next Appt Details Follow Up: 2 Months, Reason: [facility] Provider Name:JADEN CRUZ, 07/30/2024 04:15:00 PM, [address] [place], [address], Progress Notes * FINA JESSEDOB:1960 ( 63 yo F)Acc No.[id number]:02/03/2024 Patient: JESSE HUTSON Provider: Teresa Caro DPM :1960 A ge:63 Y S ex:Female Date:02/03/2024 Address:[address] [place], [place] [id number] Subjective: * Chief Complaints: * P alliation * HPI: N ails: The patient relates t o having difficulty trimming their nails, that all of their nails are thickened, that all of their nails are discolored. D iabetic: The pt states they are being seen for diabetes managment b y Dr. Correia, and they were most recently seen on 09/29/23. * Medical History: * Surgical History: * Hospitalization/Major Diagno stic Procedure: * Medications: Objective: * Vitals: H t: 64 in, Wt:289lbs, BP:181/68mm Hg, HR:70/min, BMI:49.6Index, RR:16/min, Wt-k.09 kg, Ht-cm: 162.56 cm, Body Surface Area: 2.43. * Examination: D ermatologic: Skin findings: b ilateral, cool and dry, no open ulcerations or interdigital macerations. Edema m oderate. Nail pathology: d igits 1-5, bilateral, discolored, thickened, with onychodystrophy, with subungual debris. V ascular: Dorsalis pedis pulse: 1 /4, right. Posterior tibial pulse: 0 /4, bilateral. Capillary refill: s lightly delayed, bilaterally. ? N eurologic: [place] 5.07 monofilament i ntact to the forefoot, [...] diabetic peripheral angiopathy without gangrene, unspecified whether exterminator helper termite insulin use - E11.51 (Primary) 2 . T inea unguium - B35.1 3 . P lantar neuroma of left foot - G57.62 Plan: * Treatment: 2. P lantar neuroma of left foot Notes: We discussed etiology of neuromas. We discussed [...] Pt to get inserts with metatarsal pads. * Procedure Codes: 1 1721 DEBRIDE NAIL, 6 OR MORE, Modifiers: Q8 * Follow Up: 2 Months (Reason: [facility]) * Billing Information: * Visit Code: * Procedure Codes: 81362 DEBRIDE NAIL, 6 OR MORE. Modifiers: Q8 * L NIGHT AUDITOR Sign off status: Completed true * Provider: Teresa Caro DPM Date: 1 04/05/2023 Generated for Caroli ng/Fastephanieg/eTransmitting on: 0 05/29/2024 02:24 PM CDT History and Physical Notes * HPI (History of Present Illness) Category Sub-Category Detail Notes Category Not es Diabetic The pt states they a re being seen for diabetes managment by Dr. Correia, and they were most recently seen on 09/29/23 Nails The patient relates to having di fficulty trimming their nails, that all of their nails are thickened, that all of their nails are discolored Examination Category Sub-Category Detail Notes Category Not es Dermatologic Skin findings: bilateral, cool and dry, no open ulcerations or interdigital macerations Nail pathology: digits 1-5, bilatera l, discolored, thickened, with onychodystrophy, with subungual debris Edema moderate Neurologic [place] 5.07 monofilamen t intact to the forefoot, [...]
--- OUTSIDE RECORDS SUMMARY | 2024-05-29 14:25 | XMS_ITS | Clinical Summary ---
Author Organization [facility] Address [facility] [place] [address] Care Team Providers Care Riffler Tender Name Role Phone Beth Leal Karla TEST RACK OPERATOR- Unavailable [phone] Lakshmi Reyes DIGITAL SALES DIRECTOR Primary Care Provider + [phone] Allergies Active Allergy Reactions Criticality Noted Date Comments Codeine Unknown,Rash Low 07/22/2016 Medications furosemide 20 MG tablet Take 1 tablet (20 mg total) by mouth daily as needed (for edema). Active cyclobenzaprine 5 MG tablet Take by mouth 3 (three) times daily as needed. 7 Active magnesium oxide 250 MG tablet Take 1 tablet (250 mg total) by mouth daily. Active insulin degludec (TRESIBA FLEXTOUCH) 200 UNIT/ML injection (PEN)Indications:U ncontrolled type 2 diabetes mellitus with hyperglycemia ([facility]) Inject 100 units daily at supper. 45 mL 2 9 Active rosuvastatin 20 MG tablet 1 Active JARDIANCE 25 MG tablet Take 1 tablet (25 mg total) by mouth daily. 3 Active hydroCHLOROthiazid e (MICROZIDE) 12.5 MG capsule Take 1 capsule (12.5 mg total) by mouth daily. 3 Active Blood Glucose Monitoring Suppl (ONE TOUCH ULTRA 2) w/Device Kit 3 (three) times daily. 4 Active diclofenac EC (VOLTAREN) 75 MG tablet Take 1 tablet (75 mg total) by mouth 2 (two) times daily. Active Tirzepatide (MOUNJARO) 5 MG/0.5ML Solution Pen-injector Inject 1 each into the skin once a week. 4 Active Active Problems Problem Noted Date Diagnosed Date Impaired mobility 05/24/2022 Knee pain 05/24/2022 Back pain 05/24/2022 Acute left-sided low back pain with left-sided s ciatica 04/17/2019 Biceps tendonitis on left 04/10/2019 Primary osteoarthritis of left knee 11/28/2018 SOB (shortness of breath) 07/28/2016 Morbid obesity 07/28/2016 Family history of early CAD 07/28/2016 Mixed hyperlipidemia 07/28/2016 Diabetes mellitus type 2, uncontrolled 6 Resolved Problems Problem Noted Date Diagnosed Date Resolved Date Alteration in mobility associated with pain 08/11/2021 08/17/2021 Encounters Date Type Department Care Team Description 05/16/[address] [address] Tamica Avila PA Question (Surgery question and weight loss) 05/14/2024 Travel 04/02/2024 10:30 AM BLOW UP OPERATOR Office Visit [address] [address] Real Lancaster Jr., DO Knee Pain (BILATERAL ) 04/02/2024 Travel 03/19/2024 Telephone [facility] Diabetes and Endocrinology - [address] [address] Humera Moss, RD Information (Pt asking to last picker recipes tomorrow when at her 's appt with Eric) from Last 3 Months Immunizations Name Administration Dates Next Due Influenza Adult (Generic) 12/18/2020 Family History Medical History Relation Comments No Known Problems Brother Cancer Father Diabetes Father Diabetes Maternal Grandfather Diabetes Maternal Grandmother No Known Problems Mother Heart Disease Paternal Grandfather Diabetes Paternal Grandmother Stroke Paternal Grandmother Heart Attack Paternal Uncle Relation Status Comments Brother Alive Father Maternal Grandfather Maternal Grandmother Mother Paternal Grandfather Paternal Grandmother Paternal Uncle Social History Tobacco Use Types Packs/Day Years Used Date Smoking Tobacco: Never Smokeless Tobacco: Never Alcohol Use Standard Drinks/Week Comments Never 0 (1 standard drink = 0.6 oz pur e alcohol) AUDIT-C Answer Date Recorded Frequency of Alcohol Consumption Never 04/10/2019 Average Number of Drinks Not on file 020 Frequency of Binge Drinking Not on file 03/24 PHQ-2 Answer Date Recorded PHQ-2 Score - If the patient scores above 3, please move on to questions 3-9 0 07/07/2021 Comments No Sex and Gender Information Value Date Recorded Sex Assigned at Female 04/02/2024 10:15 AM BLOW UP OPERATOR Legal Sex Female 1:50 PM CDT Gender Identity Female 08/21/2021 9:18 AM CDT Sexual Orientation Straight 08/21/2021 9: 18 AM CDT Occupation Industry Job Start Date Job End Date unemployed Not on file Not on file Not on file Last Filed Vital Signs Vital Sign Reading Time Taken Comments Blood Pressure 98/78 12/14/2019 2:50 PM CDT Pulse 89 12/14/2019 2:50 PM CDT Temperature 36.9 C (98.5 F) 12/14/2019 2:50 PM CDT Respiratory Rate 18 12/14/2019 2:50 PM CDT Oxygen Saturation 96% 12/14/2019 2:50 PM CDT Inhaled Oxygen Concentration - - Weight 126.1 kg (278 lb 1.6 oz) 025 12:07 PM CDT Height 162.6 cm (5' 4 ) 04/02/2024 10:1 6 AM BLOW UP OPERATOR Body Mass Index 47.74 04/02/2024 10:16 AM BLOW UP OPERATOR Plan of Treatment Health Maintenance Due Date Last Done Comments Kidney Health Evaluation 1960 Annual Physical 09/12/1963 Pneumococcal Vaccine: Pediatrics (0 to 5 Years) and At-Risk Patients (6 to 64 Years) (1 of 2 - PCV) 1966 Diabetes: Retinopathy Eye Exam 1978 Hepatitis C 1978 DTaP, Tdap and Td Vaccines (1 - Tdap) 09/12/1979 Cervical Cancer Screening Pap with HPV Testing (Age 30 to 64) Every 5 Years 1990 Mammogram Screening 2000 Hemoglobin A1C 09/10/2019 03/12/2019, 05/0 07/2018, 05/26/2017, Additional history exists Lipid Panel 03/12/2020 03/12/2019 RSV Immunization or 60+ Years (1 - Risk 60-74 years 1-dose series) 2020 Zoster Vaccines (2 of 2) 10/31/2020 09/05/2020 COVID-19 Vaccine (3 - season) 2023 10/18/2020, 09/27/2020 PHQ-2 ([facility]) 02/22/2024 Colorectal Cancer Screening Colonoscopy (10 Years) 04/30/2024 04/30/2014 Cervical Cancer Screening Pap Smear (Age 30 to 64) Every 3 Years 05/01/2027 04/30/2024 Cervical Cancer Screening with HPV 05/01/2027 Meningococcal B Vaccine Aged Out No l onger eligible based on patient's age to complete this topic Meningococcal Vaccine Aged Out No shila shane eligible based on patient's age to complete this topic RSV Immunizations Under 20 Months Aged Out No longer eligible based on patient's age to complete this topic Procedures Procedure Name Priority Date/Time Associated Diagnosis Comments LIPID PANEL Routine 03/12/2019 10:48 AM BLOW UP OPERATOR Mixed hyperlipidemia HEMOGLOBIN, GLYCOSYLATED Routine 03/12/2019 10:48 AM BLOW UP OPERATOR Diabetes mellitus COLONOSCOPY GENERIC (SCAN ORDER) Routine 04/30/2014 12:00 AM CDT from Last 3 Months or Most Recently Relevant to Health Maintenance Results * (ABNORMAL) HEMOGLOBIN, GLYCOSYLATED (03/12/2019 10:48 AM BLOW UP OPERATOR) HGB A1C 8.6(H) <5.7 % 03/12/2019 11:19 AM BLOW UP OPERATOR [facility] Comment: 5.7 TO 6.4% INCREASED RISK OF DIABETES > OR = 6.5% CONSISTENT WITH DIABETES PER ADA GUIDELINES ESTIMATED AVG GLUCOSE 200(H) 70 - 140 MG/DL 03/12/2019 11:19 AM BLOW UP OPERATOR [facility] 03/12/2019 10:4 8 AM BLOW UP OPERATOR us Reena Ochoa NP LABORATORY Final Result [facility] [address] [place] [place] [id number], * (ABNORMAL) LIPID PANEL (03/12/2019 10:48 AM BLOW UP OPERATOR) CHOLESTEROL 187 <200 MG/DL 03/12/2019 12:00 PM [facility] Comment: THE NATIONAL LIPID ASSOCIATION AND THE NATIONAL CHOLESTEROL EDUCATION PROGRAM (NCEP) HAVE SET THE FOLLOWING GUIDELINES FOR TOTAL CHOLESTEROL IN ADULTS AGES 18 AND UP. DESIRABLE: <200 BORDERLINE HIGH: 200-239 HIGH: > OR = 240 TRIGLYCERIDES 138 <150 MG/DL 03/12/2019 12:00 PM [facility] Comment: THE NATIONAL LIPID ASSOCIATION AND THE NATIONAL CHOLESTEROL EDUCATION PROGAM (NCEP) HAVE SET THE FOLLOWING GUIDELINES FOR TRIGLYCERIDES IN ADULTS AGES 18 AND UP. NORMAL: <150 BORDERLINE HIGH: 150 TO 199 HIGH: 200 TO 499 VERY HIGH: >499 HDL 34(L) >49 MG/DL 03/12/2019 12:00 PM [facility] Comment: THE NATIONAL LIPID ASSOCIATION AND THE NATIONAL CHOLESTEROL EDUCATION PROGAM (NCEP) HAVE SET THE FOLLOWING GUIDELINES FOR HDL CHOLESTEROL IN ADULTS AGES 18 AND UP. MALES: >39 FEMALES: >49 LDL (CALCULATED) 125(H) <100 MG/DL 03/12/19 12:00 PM [facility] Comment: THE NATIONAL LIPID ASSOCIATION AND THE NATIONAL CHOLESTEROL EDUCATION PROGAM (NCEP) HAVE SET THE FOLLOWING GUIDELINES FOR LDL CHOLESTEROL IN ADULTS AGES 18 AND UP. DESIRABLE: <100 ABOVE DESIRABLE: 100 TO 129 BORDERLINE HIGH: 130 TO 159 HIGH: 160 TO 189 VERY HIGH: >189 VLDL CALCULATION 28 MG/DL 03/12/19 12:00 PM [facility] Comment:REFERENCE RANGE NOT ESTABLISHED CHOL/HDL RATIO 5.5 03/12/2019 12:00 PM [facility] Comment:REFERENCE RANGE NOT ESTABLISHED LDL/HDL 3.7 03/12/2019 12:00 PM [facility] Comment:REFERENCE RANGE NOT ESTABLISHED NON HDL CHOLESTEROL 153 MG/DL 03/12/2019 12:00 PM [facility] Comment:REFERENCE RANGE NOT ESTABLISHED 03/12/2019 10:4 8 AM BLOW UP OPERATOR us Lakshmi Reyes DIGITAL SALES DIRECTOR LABORATORY Final Result [facility] [address] [place] [place] [id number], * COLONOSCOPY (04/30/2014 12:00 AM CDT) 04/30/2014 Documents Scanned SCANNING Final Result [facility] from Last 3 Months or Most Recently Relevant to Health Maintenance Insurance MEDICAID MEDICAID Member Subscriber Plan / Payer (Ef fective 2018-Present) Name:Flory Diaz Relation to Subscriber:Self Name:Flory Diaz Payer ID:Not on file Group ID:Not on file Type:Not on file Address: [address] [facility] Care Teams Riffler Tender Relationship Specialty Start Date End Date Beth Leal FNP-BC [address] [place] [place] [address] PCP - Med [facility] - [facility] Attributed Provider 11/21/16 Lakshmi Reyes DIGITAL SALES DIRECTOR [address] [place] [address] PCP - General 10/30/23
--- OUTSIDE RECORDS SUMMARY | 2024-05-29 14:25 | XMS_ITS ---
Author Organization [facility] Address [address] [place] [address] Care Team Providers Care Alum Operator Name Role Phone JADEN CARO Unavailable [phone] Gianfranco Pantoja Unavailable Unavailable REASON FOR VISIT Palliation Medications Medication SIG (Take, Route, Frequency, Duration) Notes Start Date End Date Status hydroCHLOROthiazide for -2 *Pick streng th-form from [...] orm from [employer] for eRX* 01/05/2022 Active Ibuprofen for -2 *Pick strength-f orm from [employer] for eRX* 01/05/2022 Active CYCLOBENZAPRINE for -2 *Reorder from [employer] for eRx and Interaction Alerts* 01/05/2022 Active TRESIBA PEN for -2 *Reorder from [employer] for eRx and Interaction Alerts* 01/05/2022 Active Vital Signs Blood pressure systolic 118 mm Hg 11/21/19 24 Blood pressure diastolic 73 mm Hg 024 Heart Rate 93 /min 11/21/2023 Height 64 in 11/21/2023 Weight 298 lbs 11/21/2023 BMI 51.15 kg/m2 11/21/2023 Height-cm 162.56 cm 11/21/2023 Weight-kg 135.17 kg 11/21/2023 Encounters Encounter Location Date Provider Diagnosis [facility] [address] [place] [address] 11/21/2023 JADEN CARO Tinea unguium B35.1 ; Type 2 diabetes mellitus with diabetic peripheral angiopathy without gangrene, unspecified whether fci insulin use E11.51 and Plantar neuroma of left foot G57.62 Assessments Encounter Date Diagnosis (ICD Code) Assessment Notes Treatment Notes Treatment Clinical Notes Section Notes 11/21/2023 Tinea unguium (ICD-10 - B35.1) 11/21/2023 Type 2 diabetes mellitus with diabetic peripheral angiopathy without gangrene, 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 Reason for debridement include [...] diabetic peripheral angiopathy without gangrene, unspecified whether fci insulin use We discussed preventative foot care. We discussed preventative foot hygiene. We instructed the patient on how to care for their feet, and to contact the office if any wounds develop, or signs of infection arise. The nails were debrided of all fungal material and debris. Debridement included a reduction in bulk of the nail by use of a sharp seat nailer and/or rotary instrument. Reason for debridement include [...] Appt Details Follow Up: 2 Months, Reason: [facility] Provider Name:JADEN CRUZ, 07/30/2024 04:15:00 PM, [address] [place], [address], Progress Notes * JESSE HARDENDOB:1960 ( 63 yo F)Acc No.[id number]:11/21/2023 Patient: JESSE HUTSON Provider: Teresa Caro DPM :1960 A ge:63 Y S ex:Female Date:11/21/2023 Address:[address], [id number] Subjective: * Chief Complaints: * P alliation [...] Objective: * Vitals: H t: 64 in, Wt:298lbs, BP:118/73mm Hg, HR:93/min, BMI:51.15Index, Wt-k.17 kg, Ht-cm: 162.56 cm, Body Surface Area: 2.47. * Examination: D ermatologic: Skin findings: b ilateral, cool and dry, no open ulcerations or interdigital macerations. Edema m oderate. Nail pathology: d igits 1-5, bilateral, discolored, thickened, with onychodystrophy, with subungual debris. V ascular: Dorsalis pedis pulse: 1 /4, right. Posterior tibial pulse: 0 /4, bilateral. Capillary refill: s lightly delayed, bilaterally. ? N eurologic: [place] 5.07 monofilament i ntact to the forefoot, [...] diabetic peripheral angiopathy without gangrene, unspecified whether fci insulin use - E11.51 (Primary) 2 . [...] Information: * Visit Code: * Procedure Codes: 00056 DEBRIDE NAIL, 6 OR MORE. Modifiers: Q8 * Sign off status: Completed true * Provider: Teresa Caro DPM Date: 0 11/21/2023 Generated for Severo kothari/Hanna/Jojo on: 0 05/29/2024 02:25 PM CDT History and Physical Notes * [...] onychodystrophy, with subungual debris Edema moderate Neurologic [place] 5.07 monofilamen t intact to the forefoot, [...]
--- OUTSIDE RECORDS SUMMARY | 2024-05-29 14:25 | XMS_ITS | Data Portability ---
Author Organization [facility] [place] Address [address] [place] [address] Care Team Providers Care Per Diem Nurse Name Role Phone ZEESHAN HADLEY Primary Care Provider Assessment Encounter Date Assessment Date Assessment LastModified by Organization Details LastModified Time 07/16/2022 07/16/2022 diflucan x2 olive or coconut oil to soothe prn will try compounded estrogen cream to see if tolerates better than estrace or premarin risks of systemic HRT likely greater than benefits for her. she agrees. i don't have to have sex. FU 1 month [email or web address] Not available 07/16/2022 14:04:08 09/06/2022 09/06/2022 doing well with compounded estrogen, no allergic sx, improving dryness continue use, will try intercourse. FU WWE [email or web address] Not available 09/14/2022 22:15:51 04/30/2024 04/30/2024 Annual gynecological exam performed. Patient will come back in a year unless there are new symptoms. [email or web address] Not available 04/30/2024 10:19:46 Plan of Treatment Reminders Order Date Submit Date Provider Last Modified By Organization Details Last Modified Time Details Appointments None recorded. Lab None recorded. Referral None recorded. Procedures None recorded. Surgeries None recorded. Imaging None recorded. Medication Orders Diflucan 150 mg tablet 2022 023 [email or web address] [id number], [address] [place], [address], 10:24:06 Patient TargetsNo targets recorded. Patient InstructionsNo instructions recorded. Reason for Referral None Reported. Problems Name Problem SNOMED Code Status Onset Date Resolution Date Notes Provider Name and Address Organization Details Recorded Time Type 2 diabetes mellitus 38121419 Active 2022 Paige Thakur MD [address], [place], [address], [facility] 11:23:47 Hyperlipidem ia 61032186 Active 2022 Paige Thakur MD [address], [place], [address], [facility] 3 11:23:57 Body mass index 40+ - severely obese 592446403 Active 2022 Paige Thakur MD [address], [place], [address], [facility] 14:02:27 Problem Notes None recorded. Procedures Surgical History Date Name Laterality Status Provider Name and Address Organization Details Recorded Time 05/12/19 Date of Last Pap Smear completed [facility] 09/06/2022 10:31:07 biopsy of breast completed [facility] 07/16/2022 11:18:53 Tubal Ligation completed [facility] 07/16/2022 11:18:59 tonsillectomy completed Catie Hardy [facility] 04/30/2024 10:29:02 Imaging Results None recorded. Procedure Notes None recorded. Medical Equipment None Reported. Allergies Allergen ID Allergen Name Allergen Category Reaction Reaction Severity Criticality Documentation Date Start Date Code Code System Note Provider Name and Address Organization Details Recorded Time codeine medicatio n Not available Not available Not available 07/16/2022 2980 RxNorm [facility] 11:17:53 Medications Name Sig Start Date Stop Date Status Note LastModified by Organization Details LastModified Time celecoxib 200 mg capsule TAKE 1 CAPSULE BY MOUTH TWICE A DAY active Not Available Not Available No t Available silver sulfadiazin e 1 % topical cream APPLY 1 (ONE) GRAM TWO TIMES DAILY, APPLY TO BURN ON UPPER RIGHT THIGH 07/16 completed Not Available Not Available Not Available albuterol sulfate 2.5 mg/3 mL (0.083 %) solution for nebulizatio n 2.5 MG (3 ML) INHALED EVERY 4 - 6 HOURS NEEDED FOR SHORTNESS OF BREATH OR WHEEZING active Not Available Not Available No t Available etodolac 300 mg capsule TAKE 1 CAPSULE 2 TIMES DAILY, THREE TIMES DAILY IF NEEDED, NO ADDITIONA L NSAIDS 04/30 completed Not Available Not Available Not Available fluconazole 150 mg tablet TAKE 1 TABLET FOR A SINGLE DOSE 04/30 completed Not Available Not Available Not Available hydrocodone 5 mg-acetamin ophen 325 mg tablet 1 TABLET ORALLY TWICE A DAY NEEDED FOR PAIN 04/30 completed Not Available Not Available Not Available prednisone 20 mg tablet TAKE 3 TABS X 3 DAYS, 2 TABS X 3 DAYS, 1 TABS X 3 DAYS, 1/2 TAB X 4 DAYS 04/30 completed Not Available Not Available Not Available Accu-Chek Softclix Lancets FOUR TIMES DAILY 04/30 completed Not Available Not Available Not Available acetaminoph en 300 mg-codeine 30 mg tablet TAKE 1-2 TABLETS BY MOUTH EVERY 6-8 HOURS NEEDED FOR PAIN 04/30 completed Not Available Not Available Not Available sulfamethox azole 800 mg-trimetho prim 160 mg tablet TAKE 1 TABLET BY MOUTH TWICE A DAY 07/16 completed Not Available Not Available Not Available triamcinolo ne acetonide 0.1 % topical cream 1 APPLIC TOPICALLY THREE TIMES A DAY FOR UP 14 DAYS active Not Available Not Available No t Available amoxicillin 875 mg tablet TAKE 1 TABLET BY MOUTH EVERY 12 HOURS 04/30 completed Not Available Not Available Not Available OneTouch Ultra Test strips THREE TIMES DAILY 04/30 completed Not Available Not Available Not Available hydrochloro thiazide 12.5 mg capsule TAKE 1 CAPSULE BY MOUTH EVERY DAY active Not Available Not Available No t Available diclofenac sodium 75 mg tablet,madyson yed release TAKE 1 TABLET BY MOUTH TWICE A DAY active Not Available Not Available No t Available furosemide 20 mg tablet 20 MG ORALLY DAILY NEEDED FOR EDEMA active Not Available Not Available No t Available doxycycline hyclate 100 mg tablet TAKE 1 TABLET BY MOUTH EVERY 12 HOURS FOR 10 DAYS 04/30 completed Not Available Not Available Not Available amoxicillin 875 mg-potassiu m clavulanate 125 mg tablet TAKE 1 TABLET BY MOUTH EVERY 12 HOURS FOR 7 DAYS 04/30 completed Not Available Not Available Not Available rosuvastati n 20 mg tablet TAKE 1 TABLET BY MOUTH EVERY DAY active Not Available Not Available No t Available nitrofurant oin monohydrate /macrocryst als 100 mg capsule TAKE 1 CAPSULE BY MOUTH EVERY 12 HOURS FOR 5 DAYS WITH FOOD OR MEAL. 04/30 completed Not Available Not Available Not Available cyclobenzap rine active Not Available Not Available Not Available Symbicort 160 mcg-4.5 mcg/actuati on HFA aerosol inhaler INHALE 2 PUFFS BY MOUTH TWICE A DAY 07/16 completed Not Available Not Available Not Available Jardiance 25 mg tablet TAKE 1 TABLET BY MOUTH EVERY DAY active Not Available Not Available No t Available Humalog KwikPen U-200 Insulin 200 unit/mL (3 mL) subcutaneou s 30 UNIT (0.15 ML) SUBCUTANE OUSLY THREE TIMES A DAY 04/30 completed Not Available Not Available Not Available insulin degludec (U-200) 200 unit/mL (3 mL) subcutaneou s pen INJECT 90 UNITS (0.45 ML) SUBCUTANE OUSLY BEDTIME 04/30 completed Not Available Not Available Not Available Tresiba FlexTouch U-200 active Not Available Not Available Not Available OneTouch Ultra2 Meter TEST THREE TIMES DAILY 04/30 completed Not Available Not Available Not Available Trulicity 3 mg/0.5 mL subcutaneou s pen injector 3 MG (0.5 ML) SUBCUTANE OUSLY WEEKLY PLAN TO RETURN TO 4.5MG WHEN AVAILABLE 04/30 completed Not Available Not Available Not Available Trulicity 4.5 mg/0.5 mL subcutaneou s pen injector INJECT 0.5 ML UNDER SKIN WEEKLY 04/30 completed Not Available Not Available Not Available Mounjaro 7.5 mg/0.5 mL subcutaneou s pen injector INJECT 7.5 MG INTO THE SKIN WEEKLY 04/30 completed Not Available Not Available Not Available Mounjaro 5 mg/0.5 mL subcutaneou s pen injector 5 MG (0.5 ML) SUBCUTANE OUSLY WEEKLY active Not Available Not Available No t Available Mounjaro 2.5 mg/0.5 mL subcutaneou s pen injector 2.5 MG (0.5 ML) SUBCUTANE OUSLY WEEKLY 04/30 completed Not Available Not Available Not Available Vitals Date Recorded Body height Body mass index (BMI) Body weight Systolic blood pressure Diastolic blood pressure Provider Name and Address Organization Details Last Updated DateTime 07/16/2022 162.56 cm 51.3 kg/m2 064269.1 2 g 130 mm[Hg] 77 mm[Hg] Arlene [facility] 3 11:15:29 Date Recorded Body height Body mass index (BMI) Body weight Systolic blood pressure Diastolic blood pressure Systolic blood pressure Diastolic blood pressure Provider Name and Address Organization Details Last Updated DateTime 3 162.56 cm 51.8 kg/m2 843809. 9 g 157 mm[Hg] 81 mm[Hg] 148 mm[Hg] 82 mm[Hg] [facility] 3 15:24:02 Date Recorded Body height Body mass index (BMI) Body weight Systolic blood pressure Diastolic blood pressure Provider Name and Address Organization Details Last Updated DateTime 04/30/2024 162.56 cm 48.3 kg/m2 938766.8 9 g 130 mm[Hg] 76 mm[Hg] Catie Hardy [facility] 5 10:22:32 Social History Question Answer Notes LastModified by Organizat ion Details LastModified Time Tobacco Smoking Status Never Smoker Ar[facility] 07/16/2022 09:42:04 What Is Your Level Of Alcohol Consumption? None Information not available 07/16/2022 Do You Use Any Illicit Or Recreational Drugs? No Information not available 07/16/2022 Has Tobacco Cessation Counseling Been Provided? No Information not available 07/16/2022 Do You Or Have You Ever Used Any Other Forms Of Tobacco Or Nicotine? No Information not available 07/16/2022 Sex: Unknown Functional Status None recorded. Mental Status None recorded. Family History Relationship Description Onset Age of this Age Resolved Age Notes LastModified by Organization Details LastModified Time Paternal Grandmother Heart disease [email or web address] Not available 2022 11:20:21 Paternal Grandmother Diabetes mellitus [email or web address] Not available 2022 11:20:30 Paternal Grandmother Hypertensive disorder [email or web address] Not available 2022 11:20:42 Paternal Uncle Hypertensive disorder [email or web address] Not available 2022 11:20:42 Notes:pt states family h/o b reast cancer,unsure of family member Medical History Condition Response Allergies (Food, seasonal, environmental ) N Other N Breast Cancer N Drug/Latex Allergies/Reactions N Blood Transfusion N Dermatologic Disorders N Lung Disease N Defects or Inherited Disease N Breast Problem N Gestational Diabetes N Hematologic disorders N Anesthesia Complications N History of STI N Deep Vein Thrombosis N Polycystic ovary syndrome N Anxiety Disorder N Autoimmune disease N Arthritis Y Infertility N Polyps N Acid Reflux (GERD) N History of abnormal pap N Cancer N Stroke N Varicosities N Neurologic/Epilepsy N Endometriosis N High Cholesterol Y Headaches N Fibromyalgia N Kidney Disease N Heart Problems N Kidney or Bladder Problems N Thyroid Problems N GI Problems N Eating Disorder N Anemia N Art (IVF or FET) N Psychiatric Illness N Ovarian Cancer N Diabetes Y Pulmonary (TB, Asthma) N Hepatitis/Liver Disease N No Past Medical History N Eczema N Urinary Tract Infection N Abuse/Domestic Violence N Asthma N Trauma/Violence N Depression/ depression N Heart Disease N Pre-Eclampsia N Hypertension N Osteoporosis N Thrombophilias N Gynecological History Statement/Question Response Abnormal Pap N Date of Last Mammogram Sexually Active? N STIs/STDs N Menses Monthly N Age of first menstrual cycle 16 Date of Last Pap Smear 05/11/2022 Sexual Problems? N Current Control Method Tubal Ligat ion Obstetrics History GPAL:G 1 P 0 0 1 0 Type Value Induced 1 Living 0 Total 1 Past Encounters Encounter ID Performer Location Encounter Start Date Encounter Closed Date Diagnosis/Indication Diagnosis SNOMED-CT Code Diagnosis ICD10 Code Diagnosis Note [id number] Paige Thakur MD [place] [address] [address] 07/16/2022 10:11:24 07/16/2022 14:09:35 Atrophic vaginitis 50786229 N95.2 Candidiasis of vulva 108 5006 B37.31 Body mass index 40+ - severely obese 506033687 Z68.43 [id number] Paige Thakur MD [place] [address] [address] 09/06/2022 15:17:02 09/09/2022 12:53:07 Atrophic vaginitis 03727306 N95.2 Dyspareunia 66752330 N94 .10 [id number] Carey Montana [facility] [address] [address] 02/01/2024 11:30:29 02/01/2024 15:33:49 Left without being seen [id number] 9102 Z53.21 [id number] Carey Montana WILBERT [place] [address] [address] 04/30/2024 10:00:12 04/30/2024 11:26:14 Gynecologic examination 02929375 Z01.419 WWEpostmen opausalPap - done todaySTI screen - declinedMa mmogram - UTD/PCPCol on cancer screening - UTD/PCPRou yayo labs - UTD/PCPRTC in 1 yr or sooner if needed Do monthly self breast exams.It is advised to get annual flu shot in the fall and she could obtain at local pharmacy. If you haven't received the Tdap vaccine in the last 10 years you should obtain one as well.Have mammogram yearly, bone density every 2-3 years and stay up to date on colon cancer screening. Engage in regular exercise. Avoid tobacco and illicit drugs. This lifestyle behavior pattern will lead to less health conditions and longer life span. If BMI greater than 25 dietary consult advised.Qu estions have been answered. Vaginal dryness 64204902 N89.8 refills [facility]a reviewed Health Concerns Section Related Observation LastModified by Organization Detai ls LastModified Time None Recorded Concern Status LastModified by Organization Details LastModified Time None Recorded Advance Directives Directive None Recorded Payers Encounter Date Sequence Insurance Name Policy Number Policy Pastrana Covered Member ID Pastrana Member ID Guarantor Name 07/16/2022 1 [facility] (MEDICARE REPLACEMENT/A DVANTAGE - PPO) [id number] Flory Diaz [id number] Flory [facility] 07/16/2022 2 [place] [facility] Flory Diaz [id number] Florypanchito Diaz 09/06/2022 1 [facility] (MEDICARE REPLACEMENT/A DVANTAGE - PPO) [id number] Flory Diaz [id number] [facility]ly [facility] 09/06/2022 2 [place] [facility] Flory Diaz [id number] Formerly [facility] 02/01/2024 1 [facility] (MEDICARE REPLACEMENT/A DVANTAGE - PPO) [id number] Flory [facility] [id number] [facility]24 2 [place] [facility] Flory Diza [id number] Formerly [facility] 04/30/2024 1 [facility] (MEDICARE REPLACEMENT/A DVANTAGE - PPO) [id number] Flory Diaz [id number] [facility] 04/30/2024 2 [place] [id number] Flory [facility] Notes Date Note Type Note Provider Name and Address Organization Details Recorded Time 3 text/html Patient is a 61yo who presents for pain with sex. She is not sexually active for two years because of this. Menses: none since age 51. Vagina feels dry and irritated, penetration and pap exams hurt. Tried estrace and premarin cream, both gave her red itchy dots, and a pill for this, pill was too expensive. Does not want HRT. Has DM2, last A1C 7. Concerns: last WWE:04/2022 with PCP Depression:denies Domestic violence:denies Paige Thakur MD [address], [place], [address], [place] [facility] 07/16/2022 14:04:26 3 text/html Here for follow up atrophy/dyspareunia/dryn ess. Had had issues with estrace and premarin creams, has been using compounded estrogen for 6w without red bumps or irritation. She states it feels less dry but has not tried intercourse yet. Paige Thakur MD [address], [place], [address], [facility] 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.Menopausal Symptoms:no menopausal symptoms; normal vaginal lubrication Vaginal Bleeding:history of menopause having occurred; no history of post menopausal bleeding Urinary Symptoms:no hematuria; no incontinence; no nocturia; no urinary frequency Vulva:no genital lesion; no vulvar atrophy Vagina:normal vaginal discharge; no vaginal atrophy Breast:no breast lump; no nipple discharge; no breast pain Sexual Complaints:no sexual complaints Psychological Symptoms:no depression; no anxiety Preventive Measures:encourage regular mammograms starting age 40; encourage self breast examination; encourage regular exercise; encourage no tobacco use; mammogram performed within the past yearNotes:63yo wwepostmenopausalno h/o abnormal papslast pap 2022 - normalmammogram UTD/olonoscopy UTD uses compounded vaginal estradiol cream twice per week, has helped with dryness JOSAFAT [place] [address], [place], [address], [facility] 04/30/2024 11:18:50 OBGyn Episode Ob Episode Information Episode Created Date Number of Fetuses Patient Bloodtype Patient rh Status Prepregnancy Weight lbs Domestic Partner Domestic Partner Phone Father Name Luggage Attendant Status 07/17/19 23 1 CLOSED Fetus Data First Name Last Name Admitted to NICU Weight (g) Sex Living Outcome Pediatric Complications Fetus ID Race Codes Race Delivery Type , Induced Obinna Calculation Initial Obinna Date Initial Exam Date Initial Exam Provider Initial Ultrasound Date Last Menstrual Period Date Ultra Sound Weeks Gestation 0 Eighteen To Twenty Week Obinna Update Ultra Sound Date Fundal Height At Umbil Quickening Date Ultra Sound Latest Weeks Gestation Final Obinna Confirmed By Final Obinna Confirmed Date Final Obinna Date Ultra Sound Latest Days Gestation 0 0 Menstrual History Last Menstrual Date Menses Monthly On Bcp Conception Prior Menses Frequency Hcg Plus Date Menarche Onset Age Delivery Information Delivery Date Delivery Type Labor Anesthesia Weeks Gestation Incision Type Labor Labor Length Hrs Delivered By Post Complications Tubal Sterilization Discharge Date Comments 5 Discharge Information Feeding Method Contraceptive Method Maternal HG B and HCT Levels
== END 2024-05-29 13:03 | disposition home or self-care (01) ==
LOC: CHSIMG 13:03
PROVIDERS: PCP Nurse Practitioner Family; Visit Provider Nurse Practitioner Family
DX: M54.42 Lumbago with sciatica, left side (principal); M43.16 Spondylolisthesis, lumbar region
CPT/HCPCS: 72100

== ENCOUNTER 2024-07-02 07:08 | Outpatient (CLI) | payer MEDICARE, SELFPAY ==
--- OUTSIDE RECORDS SUMMARY | 2024-07-02 07:11 | XMS_ITS | Clinical Summary ---
Author Organization [facility] Address Counts include 234 beds at the [facility] [place] [address] Care Team Providers Care Tool Design Draftsperson Name Role Phone Beth Leal Karla CLAIM AUDITOR- Unavailable + Lakshmi Reyes MEDICAL ESTHETICIAN Primary Care Provider + [phone] Allergies Active Allergy Reactions Criticality Noted Date [...] ncontrolled type 2 diabetes mellitus with hyperglycemia ([facility]/HCC H[facility]) Inject 100 [...] Type Department Care Team Description 05/16/2024 Telephone [facility] [id number] [place] [address] Tamica Avila PA Question (Surgery question and weight loss) 05/14/2024 Travel from Last 3 Months Immunizations Immunization Administration Dates Next Due Influenza Adult (Generic) [...] Sex Assigned at Female 04/02/2024 10:15 AM ARTIFICIAL FLOWERS SUPERVISOR Legal Sex Female 1:50 PM CDT Gender [...] (5' 4 ) 04/02/2024 10:1 6 AM ARTIFICIAL FLOWERS SUPERVISOR Body Mass Index 47.74 04/02/2024 10:16 AM ARTIFICIAL FLOWERS SUPERVISOR Plan of Treatment Health Maintenance Due Date Last Done Comments Kidney Health Evaluation 1960 Annual Physical 09/12/1963 Diabetes: Retinopathy Eye Exam 1978 Hepatitis C 1978 DTaP, Tdap and Td Vaccines (1 - Tdap) 09/12/1979 Pneumococcal Vaccine: 50+ Years (1 of 2 - PCV) 09/12/1979 Cervical Cancer Screening Pap with HPV Testing (Age 30 to 64) Every 5 Years 1990 Mammogram Screening 2000 Hemoglobin A1C 09/10/2019 03/12/2019, 05/0 07/2018, 05/26/2017, Additional history exists Lipid Panel 03/12/2020 03/12/2019 RSV Immunization or 60+ Years (1 - Risk 60-74 years 1-dose series) 2020 Zoster Vaccines (2 of 2) 10/31/2020 09/05/2020 COVID-19 Vaccine (3 - season) 2023 10/18/2020, 09/27/2020 PHQ-2 (Physician [place]) 02/22/2024 Colorectal Cancer Screening Colonoscopy (10 Years) [...] Comments LIPID PANEL Routine 03/12/2019 10:48 AM ARTIFICIAL FLOWERS SUPERVISOR Mixed hyperlipidemia HEMOGLOBIN, GLYCOSYLATED Routine 03/12/2019 10:48 AM ARTIFICIAL FLOWERS SUPERVISOR Diabetes mellitus COLONOSCOPY GENERIC (SCAN ORDER) Routine 04/30/2014 12:00 AM CDT from Last 3 Months or Most Recently Relevant to Health Maintenance Results * (ABNORMAL) HEMOGLOBIN, GLYCOSYLATED (03/12/2019 10:48 AM ARTIFICIAL FLOWERS SUPERVISOR) HGB A1C 8.6(H) <5.7 % 03/12/2019 11:19 AM ARTIFICIAL FLOWERS SUPERVISOR [facility] Comment: 5.7 TO 6.4% INCREASED RISK OF DIABETES > OR = 6.5% CONSISTENT WITH DIABETES PER ADA GUIDELINES ESTIMATED AVG GLUCOSE 200(H) 70 - 140 MG/DL 03/12/2019 11:19 AM ARTIFICIAL FLOWERS SUPERVISOR [facility] 03/12/2019 10:4 8 AM ARTIFICIAL FLOWERS SUPERVISOR Reena Ochoa NP LABORATORY Final Result [facility] [place] [address], * (ABNORMAL) LIPID PANEL (03/12/2019 10:48 AM ARTIFICIAL FLOWERS SUPERVISOR) CHOLESTEROL 187 <200 MG/DL 03/12/2019 12:00 PM ARTIFICIAL FLOWERS SUPERVISOR [facility] Comment: THE NATIONAL LIPID ASSOCIATION AND THE NATIONAL CHOLESTEROL EDUCATION PROGRAM (NCEP) HAVE SET THE FOLLOWING GUIDELINES FOR TOTAL CHOLESTEROL IN ADULTS AGES 18 AND UP. DESIRABLE: <200 BORDERLINE HIGH: 200-239 HIGH: > OR = 240 TRIGLYCERIDES 138 <150 MG/DL 03/12/2019 12:00 PM ARTIFICIAL FLOWERS SUPERVISOR [facility] Comment: THE NATIONAL LIPID ASSOCIATION AND THE NATIONAL CHOLESTEROL EDUCATION PROGAM (NCEP) HAVE SET THE FOLLOWING GUIDELINES FOR TRIGLYCERIDES IN ADULTS AGES 18 AND UP. NORMAL: <150 BORDERLINE HIGH: 150 TO 199 HIGH: 200 TO 499 VERY HIGH: >499 HDL 34(L) >49 MG/DL 03/12/2019 12:00 PM [facility] Comment: THE NATIONAL LIPID ASSOCIATION AND THE NATIONAL CHOLESTEROL EDUCATION PROGAM (NCEP) HAVE SET THE FOLLOWING GUIDELINES FOR HDL CHOLESTEROL IN ADULTS AGES 18 AND UP. MALES: >39 FEMALES: >49 LDL (CALCULATED) 125(H) <100 MG/DL 03/12/19 12:00 PM ARTIFICIAL FLOWERS SUPERVISOR [facility] Comment: THE NATIONAL LIPID ASSOCIATION AND THE NATIONAL CHOLESTEROL EDUCATION PROGAM (NCEP) HAVE SET THE FOLLOWING GUIDELINES FOR LDL CHOLESTEROL IN ADULTS AGES 18 AND UP. DESIRABLE: <100 ABOVE DESIRABLE: 100 TO 129 BORDERLINE HIGH: 130 TO 159 HIGH: 160 TO 189 VERY HIGH: >189 VLDL CALCULATION 28 MG/DL 03/12/19 12:00 PM [facility] Comment:REFERENCE RANGE NOT ESTABLISHED CHOL/HDL RATIO 5.5 03/12/2019 12:00 PM [facility] Comment:REFERENCE RANGE NOT ESTABLISHED LDL/HDL 3.7 03/12/2019 12:00 PM [facility] Comment:REFERENCE RANGE NOT ESTABLISHED NON HDL CHOLESTEROL 153 MG/DL 03/12/2019 12:00 PM [facility] Comment:REFERENCE RANGE NOT ESTABLISHED 03/12/2019 10:4 8 AM ARTIFICIAL FLOWERS SUPERVISOR Lakshmi Reyes MEDICAL ESTHETICIAN LABORATORY Final Result [facility] [address] [place] [address], * COLONOSCOPY (04/30/2014 12:00 AM CDT) 04/30/2014 us Documents Scanned SCANNING Final Result [facility] from Last 3 Months or Most Recently Relevant to Health Maintenance [place] [address] MEDICAID [facility] Care Teams Tool Design Draftsperson Relationship Specialty Start Date End Date Beth Leal, CLAIM AUDITOR- [facility] [place] [address] PCP - Med Group - [facility] Attributed Provider 11/21/16 Lakshmi Reyes NP [address] [place] [address] PCP - General 10/30/23
--- OUTSIDE RECORDS SUMMARY | 2024-07-02 07:11 | XMS_ITS | Data Portability ---
Author Organization [facility] [place] Address [address] [place] [address] Care Team Providers Care Shrimp Cleaner Name Role Phone ZEESHAN HADLEY Primary Care [...] have to have sex. FU 1 month [email or web address] Not available 07/16/2022 14:04:08 09/06/2022 09/06/2022 doing well with compounded estrogen, no allergic sx, improving dryness continue use, will try intercourse. FU WWE [email or web address] Not available 09/14/2022 22:15:51 04/30/2024 04/30/2024 Annual gynecological exam performed. Patient will come back in a year unless there are new symptoms. [email or web address] Not available 04/30/2024 10:19:46 Plan of Treatment Reminders Order Date Submit Date Provider Last Modified By Organization Details Last Modified Time Details Appointments None recorded. Lab None recorded. Referral None recorded. Procedures None recorded. Surgeries None recorded. Imaging None recorded. Medication Orders Diflucan 150 mg tablet 2022 023 [email or web address] [id number], [address] [place], [address], 10:24:06 Patient TargetsNo targets recorded. Patient InstructionsNo instructions recorded. Reason for Referral None Reported. Problems Name Problem SNOMED Code Status Onset Date Resolution Date Notes Provider Name and Address Organization Details Recorded Time Type 2 diabetes mellitus 57291169 Active 2022 Paige Thakur MD [address], [place], [address], [facility] 11:23:47 Hyperlipidem ia 79145023 Active 2022 Paige Thakur MD [address], [place], [address], [facility] 3 11:23:57 Body mass index 40+ - severely obese 875218628 Active 2022 Paige Thakur MD [address], [place], [address], [facility] 14:02:27 Problem Notes None recorded. Procedures Surgical History Date Name Laterality Status Provider Name and Address Organization Details Recorded Time 05/12/19 Date of Last Pap Smear completed [facility] 09/06/2022 10:31:07 biopsy of breast completed [facility] 07/16/2022 11:18:53 Tubal Ligation completed [facility] 07/16/2022 11:18:59 tonsillectomy completed Catie Hardy [facility] 04/30/2024 10:29:02 Imaging Results None recorded. Procedure Notes None recorded. Medical Equipment None Reported. Allergies Allergen ID Allergen Name Allergen Category Reaction Reaction Severity Criticality Documentation Date Start Date Code Code System Note Provider Name and Address Organization Details Recorded Time codeine medicatio n Not available Not available Not available 07/16/2022 8940 RxNorm [facility] 11:17:53 Medications Name Sig Start Date [...] Updated DateTime 07/16/2022 162.56 cm 51.3 kg/m2 745166.1 2 g 130 mm[Hg] 77 mm[facility]Hg[facility] 3 11:15:29 Date Recorded Body height Body mass index (BMI) Body weight Systolic blood pressure Diastolic blood pressure Systolic blood pressure Diastolic blood pressure Provider Name and Address Organization Details Last Updated DateTime 3 162.56 cm 51.8 kg/m2 293836. 9 g 157 mm[Hg] 81 mm[Hg] 148 mm[Hg] 82 mm[Hg] [facility] 3 15:24:02 Date Recorded Body height Body mass index (BMI) Body weight Systolic blood pressure Diastolic blood pressure Provider Name and Address Organization Details Last Updated DateTime 04/30/2024 162.56 cm 48.3 kg/m2 517223.8 9 g 130 mm[Hg] 76 mm[Hg] Catie Hardy [facility] 5 10:22:32 Social History Question Answer Notes LastModified by Organizat ion Details LastModified Time Tobacco Smoking Status Never Smoker Arlene Perla [facility] 07/16/2022 09:42:04 Has Tobacco Cessation Counseling Been Provided? No Information not available 07/16/2022 Sex: Unknown Functional Status Question Answer Note LastModified by Organizat ion Details LastModified Time Do you use any illicit or recreational drugs? No Information not available 07/16/2022 Do you or have you ever used any other forms of tobacco or nicotine? No Information not available 07/16/2022 What is your level of alcohol consumption? None Information not available 07/16/2022 Mental Status None recorded. Family History Relationship [...] SNOMED-CT Code Diagnosis ICD10 Code Diagnosis Note [id number] Paige Thakur MD [place] [address],[place] [address] 07/16/2022 10:11:24 07/16/2022 14:09:35 Atrophic vaginitis 11172151 N95.2 Candidiasis of vulva 108 5006 B37.31 Body mass index 40+ - severely obese 044183636 Z68.43 [id number] Paige Thakur MD [place] [address],[place] [address] 09/06/2022 15:17:02 09/09/2022 12:53:07 Atrophic vaginitis 12310017 N95.2 Dyspareunia 74708083 N94 .10 [id number] Carey Montana WILBERT [place] [address],[place] [address] 02/01/2024 11:30:29 02/01/2024 15:33:49 Left without being seen 3096538938 9102 Z53.21 [id number] Carey Montana WILBERT [place] [address],[place] [address] 04/30/2024 10:00:12 04/30/2024 11:26:14 Gynecologic examination 30843195 Z01.419 WWEpostmen opausalPap - done todaySTI screen [...] advised.Qu estions have been answered. Vaginal dryness 51004644 N89.8 refills sent for compounded [facility] reviewed Health Concerns Section Related Observation LastModified by Organization Detai ls LastModified Time None Recorded Concern Status LastModified by Organization Details LastModified Time None Recorded Advance Directives Directive None Recorded Payers Encounter Date Sequence Insurance Name Policy Number Policy Pastrana Covered Member ID Pastrana Member ID Guarantor Name 07/16/2022 1 [facility] (MEDICARE REPLACEMENT/A DVANTAGE - PPO) [id number] Flory Diaz [id number] [facility] 07/16/2022 2 MEDICAID-[place]: [facility] Flory Morin [id number] Flory [facility] 09/06/2022 1 [facility] (MEDICARE REPLACEMENT/A DVANTAGE - PPO) [id number] Flory Diaz [id number] [facility] 09/06/2022 2 MED[place]ID[place]: [facility] Flory Morin [id number] [facility] 02/01/2024 1 [facility] (MEDICARE REPLACEMENT/A DVANTAGE - PPO) [id number] Flory Diaz [id number] [facility] 02/01/2024 2 [facility] [id number] [facility] 04/30/2024 1 [facility] (MEDICARE REPLACEMENT/A DVANTAGE - PPO) [id number] Flory Diaz [id number] [facility] 04/30/2024 2 MEDICAID-[place]: [facility] [id number] [facility] Notes Date Note Type Note Provider Name [...] violence:denies Paige Thakur MD [address], [place], [address], [facility] 07/16/2022 14:04:26 3 text/html Here for follow up atrophy/dyspareunia/dryn ess. Had had issues with estrace and premarin creams, has been using compounded estrogen for 6w without red bumps or irritation. She states it feels less dry but has not tried intercourse yet. Paige Thakur MD [address], [place], [address], [facility] 09/14/2022 22:16:04 5 text/html Annual Caustic Loader Post-MenopausalReported bypatient.Menopausal Symptoms:no menopausal symptoms; normal vaginal [...] per week, has helped with dryness JOSAFAT Mialn [address], [place], [address], [facility] 04/30/2024 11:18:50 OBGyn Episode Ob Episode Information Episode Created Date Number of Fetuses Patient Bloodtype Patient rh Status Prepregnancy Weight lbs Domestic Partner Domestic Partner Phone Father Name Store Administrative Assistant Status 07/17/19 23 1 CLOSED Fetus Data [...]
--- OUTSIDE RECORDS SUMMARY | 2024-07-02 07:11 | XMS_ITS | Encounter Summary ---
Author Organization [facility] Address [facility] [place] [address] Care Team Providers Care Hide Worker Name Role Phone Be Pantoja MD Primary Care Provider [phone] Luke Garcia MD Unavailable Unavailable Beth Leal-BC Unavailable [phone] Lakshmi Reyes NP Primary Care Provider + [phone] Encounter Details Date Type Department Care Team (Late st Contact Info) Description 07/29/2018 Abstract [facility] CONVERSION [address] [place] [address] , Generic ConversionMD Social History Tobacco Use Types Packs/Day Years Used Date Smoking Tobacco: Never Comments Unknown Sex and Gender Information Value Date Recorded Sex Assigned at Female 04/02/2024 10:15 AM AUTO BODY REPAIRER FIBERGLASS Legal Sex Female 1:50 PM CDT Gender [...] on filedocumented in this encounter Care Teams Hide Worker Relationship Specialty Start Date End Date Be Pantoja MD [address] [place] [address] PCP - General FAMILY PRACTICE 07/21/16 10/29/23 Beth Leal FNP-BC [address] [place] [address] PCP - Med Group - [facility] Attributed Provider 11/21/16 Lakshmi Reyes NP [address] [place] [address] PCP - General 10/30/23 Luke Garcia MD [address] [place] [address] Gilbert Water Jet Loom Fixer CARDIOVASCULAR DISEASE 07/21/16 02/28/19 documented as of this encounter
--- OUTSIDE RECORDS SUMMARY | 2024-07-02 07:11 | XMS_ITS ---
Author Organization [employer] [facility] Address [address] [place] [address] Care Team Providers Care Silk Screen Frame Assembler Name Role Phone JADEN CARO Unavailable [phone] Gianfranco Pantoja Unavailable Unavailable REASON FOR VISIT [...] 05/14/2024 Encounters Encounter Location Date Provider Diagnosis [facility] [address] [place] [address] 05/14/2024 JADEN CARO Tinea unguium B35.1 ; Type 2 diabetes mellitus with diabetic peripheral angiopathy without gangrene, unspecified whether nursing home insulin use E11.51 and 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 Reason for debridement [...] peripheral angiopathy without gangrene, unspecified whether termite control servicer insulin use We discussed preventative foot care. We discussed preventative foot hygiene. We instructed the patient on how to care for their feet, and to contact the office if any wounds develop, or signs of infection arise. The nails were debrided of all fungal material and debris. Debridement included a reduction in bulk of the nail by use of a sharp thread cutter and/or rotary instrument. Reason for debridement [...] Appt Details Follow Up: 2 Months, Reason: [facility] Provider Name:JADEN Dorina BARNEYGamal ANTHONY, 07/30/2024 04:15:00 PM, [address] [place], [address], Progress Notes * JESSE HARDENDOB:1960 ( 63 yo F)Acc No.[id number]:05/14/2024 Patient: JESSE HUTSON Provider: Teresa Caro DPM :1960 A ge:63 Y S ex:Female Date:05/14/2024 Address:[address] [place] [address] Subjective: * Chief Complaints: * P alliation [...] s lightly delayed, bilaterally. ? N eurologic: [place] 5.07 monofilament i ntact to the forefoot, [...] peripheral angiopathy without gangrene, unspecified whether termite control servicer insulin use - E11.51 (Primary) 2 . T inea unguium - B35.1 3 . P lantar neuroma of left foot - G57.62 Plan: * Treatment: * Procedure Codes: 1 1721 DEBRIDE NAIL, 6 OR MORE, Modifiers: Q8 * Follow Up: 2 Months (Reason: [facility]) * Billing Information: * Visit Code: * Procedure Codes: 78852 DEBRIDE NAIL, 6 OR MORE. Modifiers: Q8 * Sign off status: Completed true * Provider: Teresa Caro DPM Date: 0 05/14/2024 Generated for Severo kothari/Hanna/eTransmitting on: 0 07/02/2024 07:11 AM CDT History and Physical Notes * HPI [...] onychodystrophy, with subungual debris Edema moderate Neurologic [place] 5.07 monofilamen t intact to the forefoot, [...]
--- OUTSIDE RECORDS SUMMARY | 2024-07-02 07:11 | XMS_ITS ---
Author Organization [facility] Address [address] [place] [address] Care Team Providers Care Sheet Metal Technician Name Role Phone JADEN CARO Unavailable [phone] Gianfranco Pantoja Unavailable Unavailable REASON FOR VISIT Palliation Vital Signs Blood pressure systolic 181 mm Hg 02/03/20 24 Blood pressure diastolic 68 mm Hg 024 Heart Rate 70 /min 02/03/2024 Respiratory Rate 16 /min 02/03/2024 Height 64 in 02/03/2024 Weight 289 lbs 02/03/2024 BMI 49.6 kg/m2 02/03/2024 Height-cm 162.56 cm 02/03/2024 Weight-kg 131.09 kg 02/03/2024 Encounters Encounter Location Date Provider Diagnosis [facility] [address] [place] [address] 02/03/2024 JADEN CARO Tinea unguium B35.1 ; Type 2 diabetes mellitus with diabetic peripheral angiopathy without gangrene, unspecified whether chair caner insulin use E11.51 and 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 Reason for debridement [...] diabetic peripheral angiopathy without gangrene, unspecified whether detention insulin use We discussed preventative foot care. We discussed preventative foot hygiene. We instructed the patient on how to care for their feet, and to contact the office if any wounds develop, or signs of infection arise. The nails were debrided of all fungal material and debris. Debridement included a reduction in bulk of the nail by use of a sharp eyeglass lens cutter and/or rotary instrument. Reason for debridement [...] Appt Details Follow Up: 2 Months, Reason: [facility] Provider Name:JADEN CRUZ, 07/30/2024 04:15:00 PM, [address] [place], [address], Progress Notes * FINA JESSEDOB:1960 ( 63 yo F)Acc No.[id number]:02/03/2024 Patient: JESSE HUTSON Provider: Teresa Caro DPM :1960 A ge:63 Y S ex:Female Date:02/03/2024 Address:[address] [place], [place] [id number] Subjective: * Chief Complaints: * P alliation [...] s lightly delayed, bilaterally. ? N eurologic: [place] 5.07 monofilament i ntact to the forefoot, [...] diabetic peripheral angiopathy without gangrene, unspecified whether chair caner insulin use - E11.51 (Primary) 2 . [...] Information: * Visit Code: * Procedure Codes: 73311 DEBRIDE NAIL, 6 OR MORE. Modifiers: Q8 * S SUPPORT REPRESENTATIVE Sign off status: Completed true * Provider: Teresa Caro DPM Date: 1 04/05/2023 Generated for Caroli ng/Fastephanieg/eTransmitting on: 0 07/02/2024 07:11 AM CDT History [...] onychodystrophy, with subungual debris Edema moderate Neurologic [place] 5.07 monofilamen t intact to the forefoot, [...]
--- OUTSIDE RECORDS SUMMARY | 2024-07-02 07:12 | XMS_ITS ---
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 Reason for debridement [...] diabetic peripheral angiopathy without gangrene, unspecified whether intermodal customer service insulin use We discussed preventative foot care. We discussed preventative foot hygiene. We instructed the patient on how to care for their feet, and to contact the office if any wounds develop, or signs of infection arise. The nails were debrided of all fungal material and debris. Debridement included a reduction in bulk of the nail by use of a sharp film cutter and/or rotary instrument. Reason for debridement [...] Appt Details Follow Up: 2 Months, Reason: [facility] Provider Name:JADEN CRUZ, 07/30/2024 04:15:00 PM, [address] [place], [address], Progress Notes * JESSE HARDENDOB:1960 ( 63 yo F)Acc No.[id number]:11/21/2023 Patient: JESSE HUTSON Provider: Teresa Caro DPM :1960 A ge:63 Y S ex:Female Date:11/21/2023 Address:[address], [facility] Subjective: * Chief Complaints: * P alliation [...] s lightly delayed, bilaterally. ? N eurologic: [place] 5.07 monofilament i ntact to the forefoot, [...] diabetic peripheral angiopathy without gangrene, unspecified whether intermodal customer service insulin use - E11.51 (Primary) 2 . [...] Information: * Visit Code: * Procedure Codes: 79934 DEBRIDE NAIL, 6 OR MORE. Modifiers: Q8 * Sign off status: Completed true * Provider: Teresa Caro DPM Date: 0 11/21/2023 Generated for Severo kothari/Hanna/Jojo on: 0 07/02/2024 07:11 AM CDT History [...] onychodystrophy, with subungual debris Edema moderate Neurologic [place] 5.07 monofilamen t intact to the forefoot, [...]
--- OUTSIDE RECORDS SUMMARY | 2024-07-02 07:12 | XMS_ITS | Patient Health Record ---
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) Active confirmed Problem Tinea unguium (328563462) Tinea unguium (B35.1) 04/17/202 3 Active confirmed Problem Peripheral vascular disease (844712373) Other specified peripheral vascular diseases (I73.89) 3 Active confirmed Problem Nail dystrophy (13010296) Nail dystrophy (L60.3) 8 Active confirmed Problem Callosity (160537361) Corns and callosities (L84) 8 Active confirmed Problem Pes planus (39352519) Flat foot [pes planus] (acquired), left foot (M21.42) 8 Active confirmed Problem Finding relating to psychosocial functioning (360633961) Other specified problems related to psychosocial circumstances (Z65.8) 8 Active confirmed Problem Family history of ischemic heart disease (497966647) Family history of ischemic heart disease and other diseases of the circulatory system (Z82.49) 8 Active confirmed Problem Type 2 diabetes mellitus with peripheral angiopathy (588843033) Type 2 diabetes mellitus with diabetic peripheral [...] 05/14/2024 Encounters Encounter Location Date Provider Diagnosis [facility] [place] [address] 11/21/2023 JADEN CARO Tinea unguium B35.1 ; Type 2 diabetes mellitus with diabetic peripheral angiopathy without gangrene, unspecified whether termite treater helper insulin use E11.51 and Plantar neuroma of left foot G57.62 [facility] [address] [place] [address] 02/03/2024 JADEN CARO Tinea unguium B35.1 ; Type 2 diabetes mellitus with diabetic peripheral angiopathy without gangrene, unspecified whether termite treater helper insulin use E11.51 and Plantar neuroma of left foot G57.62 [facility] [address] [place] [address] 05/14/2024 JADEN CARO Tinea unguium B35.1 ; Type 2 diabetes mellitus with diabetic peripheral angiopathy without gangrene, unspecified whether chcf insulin use E11.51 and Plantar neuroma of left foot G57.62 Assessments Encounter Date Diagnosis (ICD Code) Assessment Notes Treatment Notes Treatment Clinical Notes Section Notes 11/21/2023 Tinea unguium (ICD-10 - B35.1) 02/03/2024 Tinea unguium (ICD-10 - B35.1) 05/14/2024 Tinea unguium (ICD-10 - B35.1) 05/14/2024 Type 2 diabetes mellitus with diabetic peripheral angiopathy without gangrene, unspecified whether chcf insulin use (ICD-10 - E11.51) We discussed [...] nail by use of a sharp nail assembly machine operator and/or rotary instrument. Reason for debridement include [...] diabetic peripheral angiopathy without gangrene, unspecified whether chcf insulin use (ICD-10 - E11.51) We discussed [...] nail by use of a sharp nail assembly machine operator and/or rotary instrument. Reason for debridement include [...] nail by use of a sharp nail assembly machine operator and/or rotary instrument. Reason for debridement include [...] Details Provider Name:JADEN CRUZ, 07/30/2024 04:15:00 PM, [address] [place], [address], Insurance Providers Payer Name Payer Address Payer Phone Subscriber Number Group Number Insured Name Patient Relationship to Insured Coverage Start Date Coverage End Date [facility] MEDICARE ADVANTAGE [address] [address] [place] [address] [id number] JESSE HARDEN Self - patient is the insured 3 [place] DEPT OF [place] AID [address] [address] [place] [address] [id number] JESSE HARDEN Self - patient is the insured
[2024-07-02 07:40] LABS: Hemoglobin A1C 6.4 % (<5.7)
[2024-07-02 11:01] LABS: Alanine Aminotransferase 22 U/L (6-35); Albumin Level 3.5 g/dL (3.5-5.1); Alkaline Phosphatase 99 U/L (38-126); Anion Gap 5 mmol/L (4-12); Aspartate Amino Transferase 27 U/L (14-36); Bilirubin,Total 0.5 mg/dL (0.2-1.3); Blood Urea Nitrogen 19 mg/dL (7-17); Calcium 8.8 mg/dL (8.4-10.2); Carbon Dioxide 32 mmol/L (22-30); Chloride 102 mmol/L (98-107); Cholesterol 140 mg/dL (0-200); Estimated Glomerular Filt Rate > 60; HDL Direct 33 mg/dL; LDL Cholesterol Calculated 84 mg/dL (<130); Osmolality Calculated 287 mOsm/kg (285-295); Potassium 3.9 mmol/L (3.4-5.0); Sodium 139 mmol/L (137-145); Total Protein 6.3 g/dL (6.3-8.2); Triglycerides 115 mg/dL (<150)
[2024-07-02 11:30] LABS: Glucose 48 mg/dL (65-110)
[2024-07-02 13:27] LABS: Microalbumin Urine Random 32.3 mg/L
[2024-07-02 14:13] LABS: Creatinine Urine 434.94 mg/dL (40-278); MALB Creatinine Ratio 7.4 mg/g (0-30)
== END 2024-07-02 07:09 | disposition home or self-care (01) ==
LOC: CHSLAB 07:09
PROVIDERS: PCP Nurse Practitioner Family; Visit Provider Nurse Practitioner Family
DX: E11.9 Type 2 diabetes mellitus without complications (principal); Z79.4 Long term (current) use of insulin; M79.7 Fibromyalgia; M17.0 Bilateral primary osteoarthritis of knee; E78.5 Hyperlipidemia, unspecified; G43.909 Migraine, unspecified, not intractable, without status migrainosus
CPT/HCPCS: 36415; 80053; 80061; 82043; 83036

== ENCOUNTER 2024-09-14 10:06 | Outpatient (CLI) | payer MEDICARE, MEDICAID, SELFPAY ==
--- NOTE | ~2024-09-14 | XR_ITS ---
XR lumbar spine 2-3V 09/14/2024 10:29 Indication: Back pain Procedure: 3 views lumbar spine Comparison: 05/29/2024 Findings: There is disc narrowing at all lumbar levels with retrolisthesis at L2-3, L3-4 and L4-5. Th ere is multilevel facet hypertrophy. No acute fracture or traumatic malalignment. Pedicles intact. Sa cral foramen are symmetric. Impression: 1: Severe lumbar spondylosis. Reviewed, dictated and finalized at location A. Impression: 1: Severe lumbar spondylosis.
--- OUTSIDE RECORDS SUMMARY | 2024-09-14 10:13 | XMS_ITS | Patient Health Record ---
Author Organization [facility] Address [address] [place] [address] Care Team Providers Care First Assistant Manager Name Role Phone JADEN CARO Unavailable [phone] Gianfranco Pantoja Unavailable Unavailable Reason For Referral No Information Medications Medication SIG (Take, Route, Frequency, Duration) Notes Start Date End Date Status Diclofenac for -2 *Reorder from Med[employer]pan for eRx and Interaction Alerts* 01/05/2022 Active CYCLOBENZAPRINE for -2 *Reorder from Med[employer] for eRx and Interaction Alerts* 01/05/2022 Active NOVOLOG FLEX PEN for -2 *Pick strength- form from Med[employer] for eRX* 01/05/2022 Active TRESIBA PEN for -2 *Reorder from [employer] for eRx and Interaction Alerts* 01/05/2022 Active Ibuprofen for -2 *Pick strength-f orm from Medispan for eRX* 01/05/2022 Active Furosemide for -2 *Pick strength-f orm from Medispan for eRX* 01/05/2022 Active hydroCHLOROthiazide for -2 *Pick streng th-form from Medispan for eRX* 01/05/2022 Active ROSUVASTATIN for -2 *Reorder from Med[employer] for eRx and Interaction Alerts* 01/05/2022 Active Problems Problem Type SNOMED Code ICD Code Onset Dates Problem Status W/U Status Risk Notes Problem Type 2 diabetes mellitus with peripheral angiopathy (202747469) Type 2 diabetes mellitus with diabetic peripheral angiopathy without gangrene, unspecified whether exterminator termite insulin use (E11.51) Active confirmed Problem 117215061 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) Active confirmed Problem Tinea unguium (485279883) Tinea unguium (B35.1) 04/17/202 3 Active confirmed Problem Peripheral vascular disease (150631136) Other specified peripheral vascular diseases (I73.89) 3 Active confirmed Problem Nail dystrophy (82660191) Nail dystrophy (L60.3) 8 Active confirmed Problem Callosity (761887272) Corns and callosities (L84) 8 Active confirmed Problem Pes planus (46425826) Flat foot [pes planus] (acquired), left foot (M21.42) 8 Active confirmed Problem Finding relating to psychosocial functioning (105427167) Other specified problems related to psychosocial circumstances (Z65.8) 8 Active confirmed Problem Family history of ischemic heart disease (201059398) Family history of ischemic heart disease and other diseases of the circulatory system (Z82.49) 8 Active confirmed Problem Type 2 diabetes mellitus with peripheral angiopathy (877294549) Type 2 diabetes mellitus with diabetic peripheral angiopathy without gangrene (E11.51) 3 Active confirmed Vital Signs Heart Rate 74 /min 07/30/2024 Respiratory Rate 16 /min 02/03/2024 Height-cm 162.56 cm 07/30/2024 Blood pressure diastolic 73 mm Hg 07/30/2024 Weight-kg 122.47 kg 07/30/2024 Height 64 in 07/30/2024 Blood pressure systolic 117 mm Hg 07/30/2024 Weight 270 lbs 07/30/2024 BMI 46.34 kg/m2 07/30/2024 Encounters Encounter Location Date Provider Diagnosis [facility] [address] 11/21/2023 JADEN CARO Tinea unguium B35.1 ; Type 2 diabetes mellitus with diabetic peripheral angiopathy without gangrene, unspecified whether chcf insulin use E11.51 and Plantar neuroma of left foot G57.62 [facility] [address] [place] [address] 02/03/2024 JADEN CARO Tinea unguium B35.1 ; Type 2 diabetes mellitus with diabetic peripheral angiopathy without gangrene, unspecified whether exterminator termite insulin use E11.51 and Plantar neuroma of left foot G57.62 [facility] [address] [place] [address] 05/14/2024 JADEN CARO Tinea unguium B35.1 ; Type 2 diabetes mellitus with diabetic peripheral angiopathy without gangrene, unspecified whether exterminator termite insulin use E11.51 and Plantar neuroma of left foot G57.62 [facility] [address] [id number] [place] [address] 07/30/2024 JADEN CARO Tinea unguium B35.1 ; Type 2 diabetes mellitus with diabetic peripheral angiopathy without gangrene, unspecified whether chcf insulin use E11.51 and Plantar neuroma of left foot G57.62 Assessments Encounter Date Diagnosis (ICD Code) Assessment Notes Treatment Notes Treatment Clinical Notes Section Notes 11/21/2023 Tinea unguium (ICD-10 - B35.1) 02/03/2024 Tinea unguium (ICD-10 - B35.1) 05/14/2024 Tinea unguium (ICD-10 - B35.1) 07/30/2024 Tinea unguium (ICD-10 - B35.1) 07/30/2024 Type 2 diabetes mellitus with diabetic peripheral angiopathy without gangrene, unspecified whether exterminator termite insulin use (ICD-10 - E11.51) We discussed [...] the nail by use of a sharp diamond cutter and/or rotary instrument. Reason for debridement [...] Antiseptic was applied. Debrided 10 nails. 05/14/2024 Type 2 diabetes mellitus with diabetic [...] the nail by use of a sharp diamond cutter and/or rotary instrument. Reason for debridement [...] the nail by use of a sharp diamond cutter and/or rotary instrument. Reason for debridement [...] the nail by use of a sharp diamond cutter and/or rotary instrument. Reason for debridement [...] neuroma of left foot (ICD-10 - G57.62) 07/30/2024 Plantar neuroma of left foot (ICD-10 - G57.62) Plan Of Treatment Next Appt Details Provider Name:JADEN CRUZ, 10/15/2024 03:00:00 PM, [address] [place], [address], Insurance Providers Payer Name Payer Address Payer Phone Subscriber Number Group Number Insured Name Patient Relationship to Insured Coverage Start Date Coverage End Date [facility] MEDIC[facility] ADVANTAGE [address] [address] [place] [address] [id number] JESSE HARDEN Self - patient is the insured [facility] DEPT OF PUBLIC AID [address] [address] [place] [address] [id number] JESSE HARDEN Self - patient is the insured
--- OUTSIDE RECORDS SUMMARY | 2024-09-14 10:13 | XMS_ITS | Encounter Summary ---
Author Organization [facility] Address [address] [place] [address] Care Team Providers Care Business Teacher Name Role Phone Be Pantoja MD Primary Care Provider [phone] Luke Garcia MD Unavailable Unavailable ElvisBeth SHIPPING AND RECEIVING WEIGHER- Unavailable [phone] Lakshmi Reyes NP Primary Care Provider + [phone] Encounter Details Date Type Department Care Team (Late Contact Info) Description 07/29/2018 Abstract SFL CONVERSION [address] [place] [address] , Generic Conversion, Social History Tobacco Use Types Packs/Day Years Used Date Smoking Tobacco: Never Comments Unknown Sex and Gender Information Value Date Recorded Sex Assigned at Female 04/02/2024 10:15 AM ADMINISTRATIVE APPEALS TRIBUNAL MEMBER Legal Sex Female 1:50 PM CDT Gender Identity Female 08/21/2021 9:18 AM CDT Sexual Orientation Straight 08/21/2021 9: 18 AM CDT Occupation Industry Job Start Date Job End Date unemployed Not on file Not on file Not on file documented as of this encounter Plan of Treatment Upcoming Encounters Date Type Department Care Team (Late Contact Info) Description 09/17/2024 1:45 PM CDT [facility] [address] [address] Real Lancaster Jr., DO [address] [place] [address] documented as of this encounter Visit Diagnoses Not on filedocumented in this encounter Care Teams Business Teacher Relationship Specialty Start Date End Date Be Pantoja MD [address] [place] [address] PCP - General FAMILY PRACTICE 07/21/16 10/29/23 Beth Lela, [facility]- [address] [place] [address] PCP - Med Group - [facility] Attributed Provider 11/21/16 Lakshmi Reyes NP [address] [place] [address] PCP - General 10/30/23 Luke Garcia MD [address] [place] [address] [place] [facility] Nurse CARDIOVASCULAR DISEASE 07/21/16 02/28/19 documented as of this encounter
--- OUTSIDE RECORDS SUMMARY | 2024-09-14 10:13 | XMS_ITS | Clinical Summary ---
Author Organization [facility] Address [facility] [place] [address] Care Team Providers Care Finance Attorney Name Role Phone Beth Leal Karla DISCHARGE SPECIALIST- Unavailable [phone] Lakshmi Reyes ORIENTATION AND MOBILITY SPECIALIST Primary Care Provider + [phone] Allergies Active Allergy Reactions Criticality Noted Date [...] ncontrolled type 2 diabetes mellitus with hyperglycemia ([facility]/HCC [facility]) Inject 100 units daily at supper. 45 [...] Encounters Date Type Department Care Team Description 09/13/[address] [address] Tamica Avila PA Appointment Request 08/06/[address] [address] Beth Leal, [facility]- Health Maintenance Follow Up (Weight check) 08/06/2024 Travel 07/17/[address] [address] Real Lancaster Jr., DO Chart Prep (Weight check prior to appt.) from Last 3 Months Immunizations Immunization Administration [...] Sex Assigned at Female 04/02/2024 10:15 AM LEAD PRESS OPERATOR Legal Sex Female 1:50 PM CDT [...] CDT Inhaled Oxygen Concentration - - Weight 126.2 kg (278 lb 4.8 oz) 08/06/2024 8:49 AM CDT Height 162.6 cm (5' 4) 04/02/2024 10:1 6 AM LEAD PRESS OPERATOR Body Mass Index 47.77 04/02/2024 10:16 AM LEAD PRESS OPERATOR Plan of Treatment Upcoming Encounters Date Type Department Care Team (Late st Contact Info) Description 09/17/2024 1:45 PM CDT Office Visit [facility] [place] [id number] Real Lancaster Jr., DO [address] [place] [address] Health Maintenance Due Date Last Done Comments [...] - season) 2023 10/18/2020, 09/27/2020 PHQ-2 (Physician [place]) 02/22/2024 Colorectal Cancer Screening Colonoscopy (10 Years) [...] Comments LIPID PANEL Routine 03/12/2019 10:48 AM LEAD PRESS OPERATOR Mixed hyperlipidemia HEMOGLOBIN, GLYCOSYLATED Routine 03/12/2019 10:48 AM LEAD PRESS OPERATOR Diabetes mellitus COLONOSCOPY GENERIC (SCAN ORDER) Routine 04/30/2014 12:00 AM CDT from Last 3 Months or Most Recently Relevant to Health Maintenance Results * (ABNORMAL) HEMOGLOBIN, GLYCOSYLATED (03/12/2019 10:48 AM LEAD PRESS OPERATOR) HGB A1C 8.6(H) <5.7 % 03/12/2019 11:19 AM LEAD PRESS OPERATOR [facility] Comment: 5.7 TO 6.4% INCREASED RISK OF DIABETES > OR = 6.5% CONSISTENT WITH DIABETES PER ADA GUIDELINES ESTIMATED AVG GLUCOSE 200(H) 70 - 140 MG/DL 03/12/2019 11:19 AM LEAD PRESS OPERATOR [facility] 03/12/2019 10:4 8 AM LEAD PRESS OPERATOR us Reena Ochoa ORIENTATION AND MOBILITY SPECIALIST LABORATORY Final Result [facility] [address] [place] [address], * (ABNORMAL) LIPID PANEL (03/12/2019 10:48 AM LEAD PRESS OPERATOR) CHOLESTEROL 187 <200 MG/DL 03/12/2019 12:00 PM LEAD PRESS OPERATOR [facility] Comment: THE NATIONAL LIPID ASSOCIATION AND THE NATIONAL CHOLESTEROL EDUCATION PROGRAM (NCEP) HAVE SET THE FOLLOWING GUIDELINES FOR TOTAL CHOLESTEROL IN ADULTS AGES 18 AND UP. DESIRABLE: <200 BORDERLINE HIGH: 200-239 HIGH: > OR = 240 TRIGLYCERIDES 138 <150 MG/DL 03/12/2019 12:00 PM LEAD PRESS OPERATOR [facility] Comment: THE NATIONAL LIPID ASSOCIATION AND THE NATIONAL CHOLESTEROL EDUCATION PROGAM (NCEP) HAVE SET THE FOLLOWING GUIDELINES FOR TRIGLYCERIDES IN ADULTS AGES 18 AND UP. NORMAL: <150 BORDERLINE HIGH: 150 TO 199 HIGH: 200 TO 499 VERY HIGH: >499 HDL 34(L) >49 MG/DL 03/12/2019 12:00 PM LEAD PRESS OPERATOR [facility] Comment: THE NATIONAL LIPID ASSOCIATION AND THE NATIONAL CHOLESTEROL EDUCATION PROGAM (NCEP) HAVE SET THE FOLLOWING GUIDELINES FOR HDL CHOLESTEROL IN ADULTS AGES 18 AND UP. MALES: >39 FEMALES: >49 LDL (CALCULATED) 125(H) <100 MG/DL 03/12/19 12:00 PM [facility] Comment: THE NATIONAL LIPID ASSOCIATION AND THE NATIONAL CHOLESTEROL EDUCATION PROGAM (NCEP) HAVE SET THE FOLLOWING GUIDELINES FOR LDL CHOLESTEROL IN ADULTS AGES 18 AND UP. DESIRABLE: <100 ABOVE DESIRABLE: 100 TO 129 BORDERLINE HIGH: 130 TO 159 HIGH: 160 TO 189 VERY HIGH: >189 VLDL CALCULATION 28 MG/DL 03/12/19 12:00 PM LEAD PRESS OPERATOR [facility] Comment:REFERENCE RANGE NOT ESTABLISHED CHOL/HDL RATIO 5.5 03/12/2019 12:00 PM [facility] Comment:REFERENCE RANGE NOT ESTABLISHED LDL/HDL 3.7 03/12/2019 12:00 PM [facility] Comment:REFERENCE RANGE NOT ESTABLISHED NON HDL CHOLESTEROL 153 MG/DL 03/12/2019 12:00 PM LEAD PRESS OPERATOR [facility] Comment:REFERENCE RANGE NOT ESTABLISHED 03/12/2019 10:4 8 AM LEAD PRESS OPERATOR us Lakshmi Reyes ORIENTATION AND MOBILITY SPECIALIST LABORATORY Final Result [facility] [address] [place] [address], * COLONOSCOPY (04/30/2014 12:00 AM CDT) 04/30/2014 us Documents Scanned SCANNING Final Result [facility] from Last 3 Months or Most Recently Relevant to Health Maintenance Insurance MEDICAID MEDICAID Member Subscriber Plan / Payer (Ef fective 2022-Present) Name:Flory Diaz Relation to Subscriber:Self Name:Flory Diaz Payer ID:[id number] (NAIC) Type:Not on file Address: [place] [phone] [facility] Member Subscriber Plan / Payer (Ef fective 2023-Present) Name:Flory Diaz Relation to Subscriber:Self Name:Flory Diaz Payer ID:[id number] (NAIC) Type:Not on file Address: [place] [phone] Care Teams Finance Attorney Relationship Specialty Start Date End Date Beth Leal FNP- [address] [place] [address] [place] [address] PCP - [facility] Attributed Provider 11/21/16 Lakshmi Reyes NP [address] [place] [address] PCP - General 10/30/23
--- OUTSIDE RECORDS SUMMARY | 2024-09-14 10:13 | XMS_ITS | Encounter Summary ---
Author Organization [facility] Address [facility] [place] [address] Care Team Providers Care Ballpoint Pen Assembly Machine Operator Name Role Phone Beth Leal Karla QUALITY ASSURANCE SUPERVISOR FINAL- Unavailable [phone] Lakshmi Reyes DIRECTOR OF CORPORATE REAL ESTATE Primary Care Provider + [phone] Reason for Visit * Reason Onset Date Comments Appointment Request 09/13/2024 Encounter Details Date Type Department Care Team (Late st Contact Info) Description 09/13/2024 Telephone [facility] [address] Tamica Avila PA [address] [place] [address] Appointment Request Social History Tobacco Use Types Packs/Day Years [...] Sex Assigned at Female 04/02/2024 10:15 AM PRIVATE BRANCH EXCHANGE INSTALLER Legal Sex Female 1:50 PM CDT Gender Identity Female 08/21/2021 9:18 AM CDT Sexual Orientation Straight 08/21/2021 9: 18 AM CDT Occupation Industry Job Start Date Job End Date unemployed Not on file Not on file Not on file documented as of this encounter Progress Notes * PENNY Page - 09/13/2024 1:55 PM CDT RN attempted to contact patient in order to reschedule weight check apt that was missed. Patient will need updated weight before apt Tuesday with Dr. Lancaster. No answer, left message. documented in this encounter Plan of Treatment Upcoming Encounters Date Type Department Care Team (Late st Contact Info) Description 09/17/2024 1:45 PM CDT Office Visit [place] [id number] [facility] [address] [place], [place] [address] Real Lancaster Jr., DO [address] [place] [address] documented as of this encounter Visit Diagnoses Not on filedocumented in this encounter Care Teams Ballpoint Pen Assembly Machine Operator Relationship Specialty Start Date End Date Beth Leal, QUALITY ASSURANCE SUPERVISOR FINAL- [facility] [address] PCP - Med Group - [facility] Attributed Provider 11/21/16 Lakshmi Reyes NP [address] [place] [address] PCP - General 10/30/23 documented as of this encounter
--- OUTSIDE RECORDS SUMMARY | 2024-09-14 10:13 | XMS_ITS | Data Portability ---
Author Organization [facility] Address [address] [place] [address] Care Team Providers Care Floriculture Teacher Name Role Phone ZEESHAN HADLEY Primary Care [...] have to have sex. FU 1 month [email or web address] Not available 07/16/2022 14:04:08 09/06/2022 09/06/2022 doing well with compounded estrogen, no allergic sx, improving dryness continue use, will try intercourse. FU WWE [email or web address] Not available 09/14/2022 22:15:51 04/30/2024 04/30/2024 Annual gynecological exam performed. Patient will come back in a year unless there are new symptoms. [email or web address] Not available 04/30/2024 10:19:46 Plan of Treatment Reminders Order Date Submit Date Provider Last Modified By Organization Details Last Modified Time Details Appointments None recorded. Lab None recorded. Referral None recorded. Procedures None recorded. Surgeries None recorded. Imaging None recorded. Medication Orders Diflucan 150 mg tablet 2022 023 [email or web address] [id number], [address] [place], [address], 10:24:06 Patient TargetsNo targets recorded. Patient InstructionsNo instructions recorded. Reason for Referral None Reported. Problems Name Problem SNOMED Code Status Onset Date Resolution Date Notes Provider Name and Address Organization Details Recorded Time Type 2 diabetes mellitus 33431648 Active 2022 Paige Thakur MD [address], [place], [address], [facility] 3 11:23:47 Hyperlipidem ia 73923053 Active 2022 Paige Thakur MD [address], [place], [address], [facility] 3 11:23:57 Body mass index 40+ - severely obese 199524438 Active 2022 Paige Thakur MD [address], [place], [address], [facility] 3 14:02:27 Problem Notes None recorded. Procedures Surgical History Date Name Laterality Status Provider Name and Address Organization Details Recorded Time 05/12/19 Date of Last Pap Smear completed [facility] 09/06/2022 10:31:07 biopsy of breast completed [facility] 07/16/2022 11:18:53 Tubal Ligation completed [facility] 07/16/2022 11:18:59 [facility]/30[facility]2024 10:29:02 Imaging Results None recorded. Procedure Notes None recorded. Medical Equipment None Reported. Allergies Allergen ID Allergen Name Allergen Category Reaction Reaction Severity Criticality Documentation Date Start Date Code Code System Note Provider Name and Address Organization Details Recorded Time codeine medicatio n Not available Not available Not available 07/16/2022 9350 RxNorm [facility] 11:17:53 Medications Name Sig Start Date [...] Body mass index (BMI) Body weight Systolic And Diastolic Provider Name and Address Organization Details Last Updated DateTime 04/30/2024 162.56 cm 48.3 kg/m2 448798.89 g 130/76 mm[Hg] Catie Hardy [facility] 04/30/2024 10:22:32 Date Recorded Body height Body mass index (BMI) Body weight Systolic And Diastolic Provider Name and Address Organization Details Last Updated DateTime 07/16/2022 162.56 cm 51.3 kg/m2 089302.12 g 130/77 mm[Hg] Arlene [facility] 07/16/2022 11:15:29 Date Recorded Body height Body mass index (BMI) Body weight Systolic And Diastolic Systolic And Diastolic Provider Name and Address Organization Details Last Updated DateTime 09/06/2022 162.56 cm 51.8 kg/m2 997967.9 g 157/81 mm[Hg] 148/82 mm[Hg] Arlene [facility] 15:24:02 Social History Question Answer Notes LastModified by Sagoon Details LastModified Time Tobacco Smoking Status Never Smoker [facility] 07/16/2022 09:42:04 Has Tobacco Cessation Counseling Been Provided? No Information not available 07/16/2022 Sex: Unknown Functional Status Question Answer Note LastModified by Proficientat ion Details LastModified Time Do you use [...] SNOMED-CT Code Diagnosis ICD10 Code Diagnosis Note [id number] Paige Thakur MD [place] [address] [address] 07/16/2022 10:11:24 07/16/2022 14:09:35 Atrophic vaginitis 43151607 N95.2 Candidiasis of vulva 108 5006 B37.31 Body mass index 40+ - severely obese 333202195 Z68.43 [id number] Paige Thakur MD [place] [address],[place] [address] 09/06/2022 15:17:02 09/09/2022 12:53:07 Atrophic vaginitis 49865697 N95.2 Dyspareunia 21700532 N94 .10 [id number] Carey Montana [facility] [address],[place] [address] 02/01/2024 11:30:29 02/01/2024 15:33:49 Left without being seen 1141944527 9102 Z53.21 [id number] Carey Montana WILBERT [place] [address],[place] [address] 04/30/2024 10:00:12 04/30/2024 11:26:14 Gynecologic examination 70843743 Z01.419 WWEpostmen opausalPap - done todaySTI screen [...] advised.Qu estions have been answered. Vaginal dryness 81193935 N89.8 refills sent for compounded vaginal estradiol cream to [facility]a reviewed Health Concerns Section Related Observation LastModified by Organization Detai ls LastModified Time None Recorded Concern Status LastModified by Organization Details LastModified Time None Recorded Advance Directives Directive None Recorded Payers Insurance Date Sequence Insurance Name Policy Number Policy Pastrana Covered Member ID Pastrana Member ID Guarantor Name 04/27/2024 1 [facility] (MEDICARE REPLACEMENT/A DVANTAGE - PPO) [id number] Flory Diaz [id number] Flory Diaz 04/27/2024 2 MEDICAID-[place]: [facility] Flory Diaz [id number] Flory Diaz Notes Date Note Type Note Provider Name [...] violence:denies Paige Thakur MD [address], [place], [address], [facility] 07/16/2022 14:04:26 3 text/html Here for follow up atrophy/dyspareunia/dryne ss. Had had issues with estrace and premarin creams, has been using compounded estrogen for 6w without red bumps or irritation. She states it feels less dry but has not tried intercourse yet. Paige Thakur MD [address], [place], [address], [facility] 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 For vaginal bleeding, patient reportshistory of menopause having occurredandno history of post menopausal bleeding. For urinary symptoms, patient reportsno hematuria,no incontinence,no nocturia, andno urinary frequency. For vulva, patient reportsno genital lesionandno vulvar atrophy. For vagina, patient reportsnormal vaginal dischargeandno vaginal atrophy.Breast symptomsFor breast, patient reportsno breast lump,no nipple discharge, andno breast pain.Psychological symptomsFor sexual complaints, patient reportsno sexual complaints. For psychological symptoms, patient reportsno depressionandno anxiety.Preventative measuresFor preventive measures, patient reportsencourage regular mammograms starting age 40,encourage self breast examination,encourage regular exercise,encourage no tobacco use, andmammogram performed within the past year.63yo wwepostmenopausalno h/o abnormal papslast pap 2022 - normalmammogram UTD/olonoscopy UTD uses compounded vaginal estradiol cream twice per week, has helped with dryness JOSAFAT [place] [address], [place], [address], [place] [facility] 04/30/2024 11:18:50 OBGyn Episode Ob Episode Information Episode Created Date Number of Fetuses Patient Bloodtype Patient rh Status Prepregnancy Weight lbs Domestic Partner Domestic Partner Phone Father Name Manager Reading Status 07/17/19 23 1 CLOSED Fetus Data [...] Contraceptive Method Maternal HG B and HCT Levels"
== END 2024-09-14 10:07 | disposition home or self-care (01) ==
LOC: CHSIMG 10:09
PROVIDERS: PCP Nurse Practitioner Family
DX: M54.50 Low back pain, unspecified (principal); M51.369 Other intervertebral disc degeneration, lumbar region without mention of lumbar back pain or lower extremity pain; M54.16 Radiculopathy, lumbar region; M43.06 Spondylolysis, lumbar region
CPT/HCPCS: 72100

== ENCOUNTER 2024-10-02 07:05 | Outpatient (CLI) | payer MEDICARE, MEDICAID, SELFPAY ==
[2024-10-02 07:25] LABS: Hematocrit 49.5 % (35.0-49.0); Hemoglobin 14.7 g/dL (12.0-15.0); Immature Granulocyte Percent A 0.4 % (0.0-0.0); Lymphocytes Absolute Auto 1.92 K/mm3 (1.10-4.50); Mean Corpuscular HGB Conc 29.7 g/dL (32-36); Mean Corpuscular Hemoglobin 25.5 pg (27.0-31.0); Mean Corpuscular Volume 85.8 fL (78.0-102.0); Nucleated Red Blood Cells Absolute Auto 0.00 K/mm3 (0.00-0.00); Nucleated Red Blood Cells Perc 0.0 % (0-0.0); Platelet Count Result 239 K/mm3 (150-420); Red Blood Count 5.77 M/mm3 (4.20-5.40); White Blood Count 7.9 K/mm3 (4.8-10.8)
[2024-10-02 07:42] LABS: Hemoglobin A1C 6.2 % (<5.7)
[2024-10-02 08:14] LABS: Alanine Aminotransferase 38 U/L (6-35); Albumin Level 3.6 g/dL (3.5-5.1); Alkaline Phosphatase 88 U/L (38-126); Anion Gap 2 mmol/L (4-12); Aspartate Amino Transferase 36 U/L (14-36); Bilirubin,Total 0.5 mg/dL (0.2-1.3); Blood Urea Nitrogen 16 mg/dL (7-17); Calcium 9.3 mg/dL (8.4-10.2); Carbon Dioxide 36 mmol/L (22-30); Chloride 104 mmol/L (98-107); Estimated Glomerular Filt Rate > 60; Glucose 98 mg/dL (65-110); Osmolality Calculated 295 mOsm/kg (285-295); Potassium 5.0 mmol/L (3.4-5.0); Sodium 142 mmol/L (137-145); Total Protein 6.3 g/dL (6.3-8.2)
== END 2024-10-02 07:06 | disposition home or self-care (01) ==
PROVIDERS: PCP Nurse Practitioner Family; Visit Provider Nurse Practitioner Family
DX: E11.9 Type 2 diabetes mellitus without complications (principal); R68.2 Dry mouth, unspecified; I50.9 Heart failure, unspecified; E78.5 Hyperlipidemia, unspecified; K59.00 Constipation, unspecified; M17.0 Bilateral primary osteoarthritis of knee; M54.42 Lumbago with sciatica, left side; M79.7 Fibromyalgia; Z79.4 Long term (current) use of insulin
CPT/HCPCS: 36415; 80053; 83036; 85025; 85652; 86430

== ENCOUNTER 2024-10-17 09:21 | Outpatient (CLI) | payer MEDICARE, MEDICAID, SELFPAY ==
--- OUTSIDE RECORDS SUMMARY | 2024-10-16 09:23 | XMS_ITS | Encounter Summary ---
Author Organization [facility] Healthcare Address [address] [place] [address] Care Team Providers Care Senior Sales Consultant Name Role Phone Lakshmi Reyes NP Primary Care Provider [phone] Be Pantoja MD Unavailable [phone] Reason for Referral * MRI/CAT/PET Scan (Routine) - Closed Specialty Diagnoses / Procedures Referred By Contac t Referred To Contact Radiology Diagnoses Low back pain, unspecified back pain laterality, unspecified chronicity, unspecified whether sciatica present Other intervertebral disc degeneration, lumbar region without mention of lumbar back pain or lower extremity pain Procedures MRI Lumbar Spine WO Contrast Miscellaneous, Not In File [address] [address] Referral ID Status Reason Start Date Expiration Date Visits Re quested Visits Authorized [id number] Closed 09/19/2024 10/19/2025 1 1 Reason for Visit * MRI/CAT/PET Scan (Routine) - Closed Specialty Diagnoses / Procedures Referred By Contac t Referred To Contact Radiology Diagnoses Low back pain, unspecified back pain laterality, unspecified chronicity, unspecified whether sciatica present Other intervertebral disc degeneration, lumbar region without mention of lumbar back pain or lower extremity pain Procedures MRI Lumbar Spine WO Contrast Miscellaneous, Not In File [address] [address] Referral ID Status Reason Start Date Expiration Date Visits Re quested Visits Authorized [id number] Closed 09/19/2024 10/19/2025 1 1 Encounter Details Date Type Department Care Team (Latest Contact Info) Description 10/16/2024 9:23 AM CDT - 10/16/2024 11:59 PM CDT Hospital Encounter [facility] [address] [place] [address] Low back pain, unspecified back pain laterality, unspecified chronicity, unspecified whether sciatica present; Other intervertebral disc degeneration, lumbar region without mention of lumbar back pain or lower extremity pain Discharge Disposition: Discharge to home or self care Social History Tobacco Use Types Packs/Day Years Used Date Smoking Tobacco: Never Assessed Comments Unknown Sex and Gender Information Value Date Recorded Sex Assigned at Not on file Legal Sex 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 Gender Identity Not on file Sexual Orientation Not on file documented as of this encounter Discharge Disposition Disposition Code Departure Means Destination Discharge to home or self care documented in this encounter Plan of Treatment Not on file documented as of this encounter Procedures Procedure Name Priority Date/Time Associated Diagnosis Comments MRI LUMBAR SPINE WO CONTRAST Schedule Routine, Read Routine (OP Routine) 10/16/2024 9:55 AM CDT Low back pain, unspecified back pain laterality, unspecified chronicity, unspecified whether sciatica present Other intervertebral disc degeneration, lumbar region without mention of lumbar back pain or lower extremity pain documented in this encounter Results * MRI Lumbar Spine WO Contrast (10/16/2024 9:55 AM CDT) Anatomical Region Laterality Modality Spine N/A Magnetic Resonan ce 10/16/2024 3:18 PM CDT Narrative 10/16/2024 5:48 PM CDT EXAM DESCRIPTION: MRI LUMBAR SPINE WO CONTRAST REASON FOR STUDY: M54.50, M51.369, F40.24 Chronic low back pain, DDD. TECHNIQUE: Sagittal and Axial imaging includes T1, T2, STIR sequences. COMPARISON: No comparison FINDINGS: SEGMENTATION: No transitional anatomy. The lowest well-developed disc space is labeled L5-S1. ALIGNMENT: Stepwise retrolisthesis of L2 on L3, L3 on L4 and of L4 on L5. There is exaggeration of lordosis. Alignment otherwise is normal. VERTEBRAE: Vertebral body height well-maintained. Normal appearing marrow. DISC HEIGHT: Well-maintained. HARDWARE: None in the spine. CORD/CAUDA: Normal in size and signal intensity. Conus at the appropriate level. LOWER THORACIC: Incompletely imaged. No stenosis seen. INDIVIDUAL DISC LEVELS: L1-2: Minimal bulge. Bilateral facet arthritis. There is moderate spinal stenosis due to thickening of posterior ligaments. No foraminal stenosis. L2-3: Degenerative retrolisthesis with diffuse annular bulge. Thickening of posterior ligamentous structures and retrolisthesis result in moderate to severe spinal stenosis with bilateral subarticular narrowing. No foraminal stenosis. L3-4: Diffuse annular bulge with bilateral facet arthritis. Left greater than right neural foraminal stenosis with moderate to severe spinal stenosis. At this level there is also a focal right lateral recess narrowing related to asymmetric right-sided endplate osteophytic spurs and chronic disc changes. L4-5: Diffuse annular bulge with bilateral facet arthritis. Moderate spinal stenosis. No foraminal stenosis. L5-S1: Broad-based left paracentral and subarticular osteophytic complex. There is severe left foraminal narrowing with left lateral recess stenosis. No significant right foraminal narrowing. SACRUM: Visualized upper sacrum intact. VISUALIZED UPPER ABDOMEN: No significant abnormality. OTHER: No other significant findings. IMPRESSION: Multilevel disc degeneration and facet arthritis with multilevel spinal stenosis and subarticular narrowing, most evident at L2-3, L3-4 and L4-5 levels. Foraminal narrowing most evident on the left at L5-S1. Please correlate with radiculopathy symptoms. No acute osseous abnormality. THIS IS AN ELECTRONICALLY VERIFIED FINAL REPORT 10/16/2024 5:48 PM - Electronically signed by Nicolás Boss M.D. LC: AMARJIT Report ID: [id number] Reading Location: [place] [address] Procedure Note Isabel Boss MD - 10/16/2024 EXAM DESCRIPTION: MRI LUMBAR SPINE WO CONTRAST REASON FOR STUDY: M54.50, M51.369, F40.24 Chronic low back pain, DDD. TECHNIQUE: Sagittal and Axial imaging includes T1, T2, STIR sequences. COMPARISON: No comparison FINDINGS: SEGMENTATION: No transitional anatomy. The lowest well-developed discspace is labeled L5-S1. ALIGNMENT: Stepwise retrolisthesis of L2 on L3, L3 on L4 and of L4 onL5. There is exaggeration of lordosis. Alignment otherwise is normal. VERTEBRAE: Vertebral body height well-maintained. Normal appearingmarrow. DISC HEIGHT: Well-maintained. HARDWARE: None in the spine. CORD/CAUDA: Normal in size and signal intensity. Conus at theappropriate level. LOWER THORACIC: Incompletely imaged. No stenosis seen. INDIVIDUAL DISC LEVELS: L1-2: Minimal bulge. Bilateral facet arthritis. There is moderatespinal stenosis due to thickening of posterior ligaments. No foraminal stenosis. L2-3: Degenerative retrolisthesis with diffuse annular bulge.Thickening of posterior ligamentous structures and retrolisthesis result in moderate to severe spinal stenosis with bilateral subarticular narrowing. Noforaminal stenosis. L3-4: Diffuse annular bulge with bilateral facet arthritis. Leftgreater than right neural foraminal stenosis with moderate to severe spinalstenosis. At this level there is also a focal right lateral recess narrowing relatedto asymmetric right-sided endplate osteophytic spurs and chronic discchanges. L4-5: Diffuse annular bulge with bilateral facet arthritis. Moderatespinal stenosis. No foraminal stenosis. L5-S1: Broad-based left paracentral and subarticular osteophyticcomplex. There is severe left foraminal narrowing with left lateral recessstenosis. No significant right foraminal narrowing. SACRUM: Visualized upper sacrum intact. VISUALIZED UPPER ABDOMEN: No significant abnormality. OTHER: No other significant findings. IMPRESSION: Multilevel disc degeneration and facet arthritis with multilevel spinal stenosis and subarticular narrowing, most evident at L2-3, L3-4 and L4-5 levels. Foraminal narrowing most evident on the left at L5-S1. Please correlate with radiculopathy symptoms. No acute osseous abnormality. THIS IS AN ELECTRONICALLY VERIFIED FINAL REPORT 10/16/2024 5:48 PM - Electronically signed by Nicolás Boss M.D. LC: AMARJIT Report ID: [id number] Reading Location: [place] [address] us Not In File Miscellaneous IMG MRI PROCEDURES Fin al Result documented in this encounter Visit Diagnoses Diagnosis Low back pain, unspecified back pain laterality, unspecified chronicity, unspecified whether sciatica present Other intervertebral disc degeneration, lumbar region without mention of lumbar back pain or lower extremity pain documented in this encounter Care Teams Senior Sales Consultant Relationship Specialty Start Date End Date Lakshmi Reyes NP [address] [place] [address] PCP - General Family Practice 09/21/24 Be Pantoja MD [address] [facility] [place] [address] 09/21/24 documented as of this encounter
--- NOTE | ~2024-10-17 | MM_ITS ---
EXAMINATION: screening [facility] BI w pamela INDICATION: Asymptomatic, referred for screening mammogram COMPARISON: 09/13/2022 through 10/18/2019 TECHNIQUE: Digital Breast Tomosynthesis CC, MLO views of Both breasts were obtained with computer-aided detection to assist in interpretation of the study. FINDINGS: There are scattered areas of fibroglandular density. There is an asymmetry seen on the MLO view in the Superior left breast at anterior third. Elsewhere, there are no mammographic features of malignancy. IMPRESSION: 1. Left breast Asymmetry. 2. No evidence of malignancy in the Right breast. RECOMMENDATION: Left breast Diagnostic mammogram with true lateral, appropriate spot compression views and an ultrasound if needed. BI-RADS Category 0: Incomplete: Needs additional imaging evaluation. Reviewed, dictated and finalized at location B. IMPRESSION: 1. Left breast Asymmetry. 2. No evidence of malignancy in the Right breast. RECOMMENDATION: Left breast Diagnostic mammogram with true lateral, appropriate spot compressio n views and an ultrasound if needed. BI-RADS Category 0: Incomplete: Needs additional imaging evaluation.
--- OUTSIDE RECORDS SUMMARY | 2024-10-17 09:32 | XMS_ITS | Clinical Summary ---
Author Organization [facility] Healthcare Address [address] [place] [address] Care Team Providers Care Mime Artist Name Role Phone Lakshmi Reyes NP Primary Care Provider [phone] Be Pantoja MD Unavailable [phone] Encounters Date Type Department Care Team Description 10/16/2024 9:23 AM CDT - 10/16/2024 11:59 PM CDT Hospital Encounter [facility] [address] [place] [address] Low back pain, unspecified back pain laterality, unspecified chronicity, unspecified whether sciatica present; Other intervertebral disc degeneration, lumbar region without mention of lumbar back pain or lower extremity pain Discharge Disposition: Discharge to home or self care from Last 3 Months Social History Tobacco Use Types Packs/Day Years Used Date Smoking Tobacco: Never Assessed Comments Unknown Sex and Gender Information Value Date Recorded Sex Assigned at Not on file 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 Gender Identity Not on file Sexual Orientation Not on file Last Filed Vital Signs Vital Sign Reading Time Taken Comments Blood Pressure - - Pulse - - Temperature - - Respiratory Rate - - Oxygen Saturation - - Inhaled Oxygen Concentration - - Weight 136.1 kg (300 lb) 04/14/2018 3:54 PM HELPER COORDINATOR Height - - Body Mass Index - - Plan of Treatment Health Maintenance Due Date Last Done Comments Breast Cancer Screening-Mammogram 1960 Cervical Cancer Screening 1960 Colon Cancer Screening-Colonoscopy 1960 Depression Screening 1960 Hepatitis C Screening 1960 DTaP/Tdap/Td Vaccine (1 - Tdap) 09/12/1971 Hepatitis B Screening 1978 Regular Well Visit/Exam 18-64 1978 Influenza Vaccine (#1) 2024 4, 11/24/2021, 12/18/2020, Additional history exists Covid-19 Vaccine Completed 12/25/2023, , 11/24/2021, Additional history exists Zoster Vaccine Completed 03/26/2024, 09/05/2020 Pneumococcal vaccine <65 Aged Out No longer eligible based on [...] lumbar back pain or lower extremity pain from Last 3 Months Results * MRI Lumbar Spine WO Contrast [...] Nicolás Boss M.D. LC: AMARJIT Report ID: [id number] Reading Location: [id number] Procedure Note Isabel Boss MD - 10/16/2024 [...] Nicolás Boss M.D. LC: AMARJIT Report ID: [id number] Reading Location: [place] [address] us Not In File Miscellaneous IMG MRI PROCEDURES Fin al Result from Last 3 Months Insurance MEDICARE [employer] MEDIC[facility] ADVANTAGE [facility] Address: [address] [address] [place] [address] [employer]PA Care Teams Mime Artist Relationship Specialty Start Date End Date Lakshmi Reyes NP [address] [place] [address] PCP - General Family Practice 09/21/24 Be Pantoja MD [address] [place] [address] 09/21/24
--- OUTSIDE RECORDS SUMMARY | 2024-10-17 09:33 | XMS_ITS | Patient Health Record ---
Author Organization [facility] Address [address] [place] [address] Care Team Providers Care Mix Chemist Name Role Phone JADEN CARO Unavailable [phone] Gianfranco Pantoja Unavailable Unavailable Reason For Referral No Information Medications Medication SIG (Take, Route, Frequency, Duration) Notes Start Date End Date Status CYCLOBENZAPRINE ; Duration: -2 *Reorder from Med[facility]pan for eRx and Interaction Alerts* 01/05/2022 Active Ibuprofen ; Duration: -2 *Pick strength-f orm from Med[facility]pan for eRX* 01/05/2022 Active TRESIBA PEN ; Duration: -2 *Reorder from Medispan for eRx and Interaction Alerts* 01/05/2022 Active ROSUVASTATIN ; Duration: -2 *Reorder from Medispan for eRx and Interaction Alerts* 01/05/2022 Active hydroCHLOROthiazide ; Duration: -2 *Pick streng th-form from Medispan for eRX* 01/05/2022 Active Diclofenac ; Duration: -2 *Reorder from Medispan for eRx and Interaction Alerts* 01/05/2022 Active NOVOLOG FLEX PEN ; Duration: -2 *Pick strength- form from Med[facility]pan for eRX* 01/05/2022 Active Furosemide ; Duration: -2 *Pick strength-f orm from [facility] for eRX* 01/05/2022 Active Problems Problem Type SNOMED Code ICD Code Onset Dates Problem Status W/U Status Risk Notes Problem Type 2 diabetes mellitus with peripheral angiopathy (240169363) Type 2 diabetes mellitus with diabetic peripheral angiopathy without gangrene, unspecified whether senior care insulin use (E11.51) Active confirmed Problem Plantar nerve lesion (232912939) 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) Active confirmed Problem Tinea unguium (584259607) Tinea unguium (B35.1) 3 Active confirmed Problem Peripheral vascular disease (918527103) Other specified peripheral vascular diseases (I73.89) 3 Active confirmed Problem Nail dystrophy (98228267) Nail dystrophy (L60.3) 8 Active confirmed Problem Callosity (809803941) Corns and callosities (L84) 8 Active confirmed Problem Pes planus (59743614) Flat foot [pes planus] (acquired), left foot (M21.42) 8 Active confirmed Problem Finding relating to psychosocial functioning (397239240) Other specified problems related to psychosocial circumstances (Z65.8) 8 Active confirmed Problem Family history of ischemic heart disease (842585760) Family history of ischemic heart disease and other diseases of the circulatory system (Z82.49) 8 Active confirmed Problem Type 2 diabetes mellitus with peripheral angiopathy (822723016) Type 2 diabetes mellitus with diabetic peripheral angiopathy without gangrene (E11.51) 3 Active confirmed Vital Signs Heart Rate 78 /min 10/15/2024 Respiratory Rate 16 /min 02/03/2024 Height-cm 162.56 cm 10/15/2024 Blood pressure diastolic 80 mm Hg 10/15/2024 Weight-kg 124.74 kg 10/15/2024 Height 64 in 10/15/2024 Blood pressure systolic 139 mm Hg 10/15/2024 Weight 275 lbs 10/15/2024 BMI 47.2 kg/m2 10/15/2024 Encounters Encounter Location Date Provider Diagnosis [facility] [address] 11/21/2023 JADEN Santanaea unguium B35.1 ; Type 2 diabetes mellitus with diabetic peripheral angiopathy without gangrene, unspecified whether senior care insulin use E11.51 and Plantar neuroma of left foot G57.62 [facility] [address] [place] [address] 02/03/2024 JADEN CARO Tinea unguium B35.1 ; Type 2 diabetes mellitus with diabetic peripheral angiopathy without gangrene, unspecified whether intermission coordinator insulin use E11.51 and Plantar neuroma of left foot G57.[address] [address] 05/14/2024 JADEN CARO Tinea unguium B35.1 ; Type 2 diabetes mellitus with diabetic peripheral angiopathy without gangrene, unspecified whether senior care insulin use E11.51 and Plantar neuroma of left foot G57.[address] [address] 07/30/2024 JADEN COCKAYNE Tinea unguium B35.1 ; Type 2 diabetes mellitus with diabetic peripheral angiopathy without gangrene, unspecified whether senior care insulin use E11.51 and Plantar neuroma of left foot G57.[address] [address] 10/15/2024 JADEN CORLEYAYNE Tinea unguium B35.1 ; Type 2 diabetes mellitus with diabetic peripheral angiopathy without gangrene, unspecified whether senior care insulin use E11.51 and Plantar neuroma of left foot G57.62 Assessments Encounter Date Diagnosis (ICD Code) Assessment Notes Treatment Notes Treatment Clinical Notes Section Notes 11/21/2023 Tinea unguium (ICD-10 - B35.1) 02/03/2024 Tinea unguium (ICD-10 - B35.1) 05/14/2024 Tinea unguium (ICD-10 - B35.1) 07/30/2024 Tinea unguium (ICD-10 - B35.1) 10/15/2024 Tinea unguium (ICD-10 - B35.1) 10/15/2024 Type 2 diabetes mellitus with diabetic peripheral angiopathy without gangrene, unspecified whether intermission coordinator insulin use (ICD-10 - E11.51) We discussed [...] the nail by use of a sharp under cutter and/or rotary instrument. Reason for debridement include relief of pain, treatment of infection, temporary removal of an anatomic deformity such as onychauxis or onychocryptosis, exposure of subungual conditions for the purpose of treatment as well as diagnosis, and/or as a prophylactic measure to prevent further problems, such as subungual ulceration in an insensate patient with onychauxis. Antiseptic was applied. Debrided 10 nails. 07/30/2024 Type 2 diabetes mellitus with diabetic peripheral angiopathy without gangrene, unspecified whether intermission coordinator insulin use (ICD-10 - E11.51) We discussed [...] the nail by use of a sharp under cutter and/or rotary instrument. Reason for debridement [...] diabetic peripheral angiopathy without gangrene, unspecified whether intermission coordinator insulin use (ICD-10 - E11.51) We discussed [...] the nail by use of a sharp under cutter and/or rotary instrument. Reason for debridement [...] diabetic peripheral angiopathy without gangrene, unspecified whether intermission coordinator insulin use (ICD-10 - E11.51) We discussed [...] the nail by use of a sharp under cutter and/or rotary instrument. Reason for debridement [...] diabetic peripheral angiopathy without gangrene, unspecified whether intermission coordinator insulin use (ICD-10 - E11.51) We discussed [...] the nail by use of a sharp under cutter and/or rotary instrument. Reason for debridement [...] neuroma of left foot (ICD-10 - G57.62) 10/15/2024 Plantar neuroma of left foot (ICD-10 - G57.62) Plan Of Treatment No Information Insurance Providers Payer Name Payer Address Payer Phone Subscriber Number Group Number Insured Name Patient Relationship to Insured Coverage Start Date Coverage End Date [facility] MEDICARE ADVANTAGE [address] [address] [place] [address] [id number] JESSE HARDEN Self - patient is the insured [facility] DEPT OF PUBLIC AID [address] [address] [place] [address] [id number] JESSE HARDEN Self - patient is the insured
== END 2024-10-17 09:22 | disposition home or self-care (01) ==
PROVIDERS: PCP Nurse Practitioner Family; Visit Provider Nurse Practitioner Family
DX: Z12.31 Encounter for screening mammogram for malignant neoplasm of breast (principal); R92.8 Other abnormal and inconclusive findings on diagnostic imaging of breast
CPT/HCPCS: 77063; 77067

== ENCOUNTER 2024-11-09 08:26 | Outpatient (CLI) | payer MEDICARE, MEDICAID, SELFPAY ==
--- NOTE | ~2024-11-09 | MMUS_ITS ---
EXAMINATION: US breast LT limited, MM diagnostic tanner LT w pamela HISTORY: Inconclusive mammogram. TECHNIQUE: Axial images of the left breast]] were performed using full field digital mammography. 3-D tomosynthesis were also obtained and synthetic 2-D images were generated. CAD analysis was submitted and interpreted. High- resolution left were breast ultrasound was performed.] ] COMPARISON: Mammograms July 17, 2024, 09/09/2022 and 09/07/2022 BREAST PARENCHYMAL COMPOSITION: There are scattered areas of fibroglandular density. FINDINGS: MAMMOGRAPHIC FINDINGS: Asymmetry in the upper left breast, anterior depth, seen in the left MLO and left MLO projections. There is a probable sonographic correlate. ULTRASOUND: There is a 3 x 4 x 5 mm hypoechoic mass in the left breast at the 1:00 position 6 cm from nipple. The finding is tall than wide. Margins are indistinct and angulated. There is posterior acoustic shadowing. Internal color Doppler flow. The finding probably corresponds with the mammographic asymmetry. The finding is suspicious. IMPRESSION/RECOMMENDATION: 1. Mass in the left breast at the 1:00 position. The finding is suspicious. An ultrasound-guided breast biopsy is recommended. A postbiopsy mammogram is recommended. BI-RADS 4-Suspicious finding. Protocol insures that results of the study are called and/or faxed to the referring clinician's office and documented in the patient's chart per critical findings protocol. Reviewed, dictated and finalized at location Q. IMPRESSION/RECOMMENDATION: 1. Mass in the left breast at the 1:00 position. The finding is suspicious. An ultrasound-guided breast biopsy is recommended. A postbiopsy mammogram is recom mended. BI-RADS 4-Suspicious finding. Protocol insures that results of the study are called and/or faxed to the refer ring clinician's office and documented in the patient's chart per critical find ings protocol. IMPRESSION/RECOMMENDATION: 1. Mass in the left breast at the 1:00 position. The finding is suspicious. An ultrasound-guided breast biopsy is recommended. A postbiopsy mammogram is recom mended. BI-RADS 4-Suspicious finding. Protocol insures that results of the study are called and/or faxed to the refer ring clinician's office and documented in the patient's chart per critical find ings protocol.
--- OUTSIDE RECORDS SUMMARY | 2024-11-09 08:28 | XMS_ITS | Encounter Summary ---
Author Organization [facility] Address [facility] [place] [address] Care Team Providers Care Squeak Rattle And Leak Repairer Name Role Phone Be Pantoja MD Primary Care Provider [phone] Luke Garcia MD Unavailable Unavailable Beth Leal-BC Unavailable [phone] Lakshmi Reyes NP Primary Care Provider + [phone] Encounter Details Date Type Department Care Team (Late st Contact Info) Description 07/29/2018 Abstract [facility] CONVERSION [address] [place] [address] , Generic MD Mary Alice Social History Tobacco Use Types Packs/Day Years Used Date Smoking Tobacco: Never Comments Unknown Sex and Gender Information Value Date Recorded Sex Assigned at Female 04/02/2024 10:15 AM JOY LOADING 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
--- OUTSIDE RECORDS SUMMARY | 2024-11-09 08:28 | XMS_ITS | Clinical Summary ---
Author Organization [facility] Address [facility] [place] [address] Care Team Providers Care Calciner Operator Name Role Phone Beth Leal Karla SPRAY GUN STRIPER- Unavailable [phone] Lakshmi Reyes CIVIL ENGINEERING PROFESSOR Primary Care Provider + [phone] Allergies Active Allergy Reactions Criticality Noted Date [...] ncontrolled type 2 diabetes mellitus with hyperglycemia ([facility]) Inject 100 units daily at [...] Encounters Date Type Department Care Team Description 10/10/[address] [address] Real Lancaster Jr., DO Appointment Reminder 10/03/2024 Orders Only [address] [address] Real Lancaster Jr., DO 09/13/[address] [address] Tamica Avila PA Appointment Request from Last 3 Months Immunizations Immunization Administration [...] Sex Assigned at Female 04/02/2024 10:15 AM CONSTRUCTION CONTRACTOR Legal Sex Female 1:50 PM CDT Gender [...] cm (5' 4) 04/02/2024 10:1 6 AM CONSTRUCTION CONTRACTOR Body Mass Index 47.77 04/02/2024 10:16 AM CONSTRUCTION CONTRACTOR Plan of Treatment Health Maintenance Due Date [...] Zoster Vaccines (2 of 2) 10/31/2020 09/05/2020 PHQ-2 (Physician [place]) 02/22/2024 Colorectal Cancer Screening Colonoscopy (10 Years) 04/30/2024 04/30/2014 COVID-19 Vaccine ( season) 2024 10/18/2020, 09/27/2020 Cervical Cancer Screening Pap Smear (Age 30 [...] Comments LIPID PANEL Routine 03/12/2019 10:48 AM CONSTRUCTION CONTRACTOR Mixed hyperlipidemia HEMOGLOBIN, GLYCOSYLATED Routine 03/12/2019 10:48 AM CONSTRUCTION CONTRACTOR Diabetes mellitus COLONOSCOPY GENERIC (SCAN ORDER) Routine 04/30/2014 12:00 AM CDT from Last 3 Months or Most Recently Relevant to Health Maintenance Results * (ABNORMAL) HEMOGLOBIN, GLYCOSYLATED (03/12/2019 10:48 AM CONSTRUCTION CONTRACTOR) HGB A1C 8.6(H) <5.7 % 03/12/2019 11:19 AM CONSTRUCTION CONTRACTOR [facility] Comment: 5.7 TO 6.4% INCREASED RISK OF DIABETES > OR = 6.5% CONSISTENT WITH DIABETES PER ADA GUIDELINES ESTIMATED AVG GLUCOSE 200(H) 70 - 140 MG/DL 03/12/2019 11:19 AM CONSTRUCTION CONTRACTOR [facility] 03/12/2019 10:4 8 AM CONSTRUCTION CONTRACTOR us Reena Ochoa NP LABORATORY Final Result [facility] [address] [place] [address], * (ABNORMAL) LIPID PANEL (03/12/2019 10:48 AM CONSTRUCTION CONTRACTOR) CHOLESTEROL 187 <200 MG/DL 03/12/2019 12:00 PM CONSTRUCTION CONTRACTOR [facility] Comment: THE NATIONAL LIPID ASSOCIATION AND THE NATIONAL CHOLESTEROL EDUCATION PROGRAM (NCEP) HAVE SET THE FOLLOWING GUIDELINES FOR TOTAL CHOLESTEROL IN ADULTS AGES 18 AND UP. DESIRABLE: <200 BORDERLINE HIGH: 200-239 HIGH: > OR = 240 TRIGLYCERIDES 138 <150 MG/DL 03/12/2019 12:00 PM [facility] Comment: THE NATIONAL LIPID ASSOCIATION AND THE NATIONAL CHOLESTEROL EDUCATION PROGAM (NCEP) HAVE SET THE FOLLOWING GUIDELINES FOR TRIGLYCERIDES IN ADULTS AGES 18 AND UP. NORMAL: <150 BORDERLINE HIGH: 150 TO 199 HIGH: 200 TO 499 VERY HIGH: >499 HDL 34(L) >49 MG/DL 03/12/2019 12:00 PM CONSTRUCTION CONTRACTOR [facility] Comment: THE NATIONAL LIPID ASSOCIATION AND THE NATIONAL CHOLESTEROL EDUCATION PROGAM (NCEP) HAVE SET THE FOLLOWING GUIDELINES FOR HDL CHOLESTEROL IN ADULTS AGES 18 AND UP. MALES: >39 FEMALES: >49 LDL (CALCULATED) 125(H) <100 MG/DL 03/12/19 12:00 PM CONSTRUCTION CONTRACTOR [facility] Comment: THE NATIONAL LIPID ASSOCIATION AND THE NATIONAL CHOLESTEROL EDUCATION PROGAM (NCEP) HAVE SET THE FOLLOWING GUIDELINES FOR LDL CHOLESTEROL IN ADULTS AGES 18 AND UP. DESIRABLE: <100 ABOVE DESIRABLE: 100 TO 129 BORDERLINE HIGH: 130 TO 159 HIGH: 160 TO 189 VERY HIGH: >189 VLDL CALCULATION 28 MG/DL 03/12/19 12:00 PM CONSTRUCTION CONTRACTOR [facility] Comment:REFERENCE RANGE NOT ESTABLISHED CHOL/HDL RATIO 5.5 03/12/2019 12:00 PM [facility] Comment:REFERENCE RANGE NOT ESTABLISHED LDL/HDL 3.7 03/12/2019 12:00 PM CONSTRUCTION CONTRACTOR [facility] Comment:REFERENCE RANGE NOT ESTABLISHED NON HDL CHOLESTEROL 153 MG/DL 03/12/2019 12:00 PM CONSTRUCTION CONTRACTOR [facility] Comment:REFERENCE RANGE NOT ESTABLISHED 03/12/2019 10:4 8 AM CONSTRUCTION CONTRACTOR us Lakshmi Reyes NP LABORATORY Final Result [facility] [address] [place] [address], * COLONOSCOPY (04/30/2014 12:00 AM CDT) 04/30/2014 us Documents Scanned SCANNING Final Result [facility] from Last 3 Months or Most Recently Relevant to Health Maintenance Insurance MEDICAID MEDICAID Member Subscriber Plan / Payer (Ef fective 2018-Present) Name:Flory Diaz Relation to Subscriber:Self Name:Flory Diaz Payer ID:Not on file Group ID:Not on file Type:Not on file Address: [address] [facility] Care Teams Calciner Operator Relationship Specialty Start Date End Date Beth Leal, SPRAY GUN STRIPER- [address] [place] [address] PCP - Med Group - [facility] Attributed Provider 11/21/16 Lakshmi Reyes NP [address] [place] [address] PCP - General 10/30/23
== END 2024-11-09 08:27 | disposition home or self-care (01) ==
LOC: CHSIMG 08:26
PROVIDERS: PCP Nurse Practitioner Family; Visit Provider Nurse Practitioner Family
DX: N63.21 Unspecified lump in the left breast, upper outer quadrant (principal)
CPT/HCPCS: 76642; 77061; 77065; G0279

== ENCOUNTER 2024-12-08 10:06 | Emergency (ER) | payer MEDICARE, MEDICAID, SELFPAY ==
--- OUTSIDE RECORDS SUMMARY | 2023-07-01 05:15 | XMS_ITS ---
Author Organization [facility] [facility] Address [address] [place] [address] Care Team Providers Care Carpenter Helper Hardwood Flooring Name Role Phone JADEN CARO Unavailable [phone] Gianfranco Pantoja Unavailable Unavailable Encounters Encounter Location Date Provider Diagnosis [facility] [address] [place] [address] 07/01/2023 JADEN CARO Plan Of Treatment Next Appt Details Provider Name:JADEN CRUZ, 02/11/2025 01:00:00 PM, [place], [address], Progress Notes * JESSE HARDENDOB:1960 ( 64 yo F)Acc No.[id number]:07/01/2023 Patient: JESSE HUTSON Provider: Teresa Caro DPM :1960 A ge:62 Y S ex:Female Date:07/01/2023 Address:[address] [id number] Subjective: * Chief Complaints: * * Medical History: Objective: * Vitals: Assessment: Plan: * Treatment: * Billing Information: * Visit Code: * Procedure Codes: * Electronic signature of TOSHA CARO DPM on 12/08/2024 at 10:16 AM CDT Sign off status: Pending * Provider: Teresa Caro DPM Date: 0 07/01/2023 Generated for Severo ng/Fastephanieg/eTransmitting on: 1 10:16 AM CDT
[2024-12-08 10:06] VITALS: BP 147/79; PULSE 84; RESP 18; TEMP 36.4; O2SAT 100
--- OUTSIDE RECORDS SUMMARY | 2024-12-08 10:16 | XMS_ITS | Patient Health Record ---
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) Active confirmed Problem Tinea unguium (442001778) Tinea unguium (B35.1) 3 Active confirmed Problem Peripheral vascular disease (349710406) Other specified peripheral vascular diseases (I73.89) 3 Active confirmed Problem Nail dystrophy (82159594) Nail dystrophy (L60.3) 8 Active confirmed Problem Callosity (211525194) Corns and callosities (L84) 8 Active confirmed Problem Pes planus (60860957) Flat foot [pes planus] (acquired), left foot (M21.42) 8 Active confirmed Problem Finding relating to psychosocial functioning (008330127) Other specified problems related to psychosocial circumstances (Z65.8) 8 Active confirmed Problem Family history of ischemic heart disease (905707977) Family history of ischemic heart disease and other diseases of the circulatory system (Z82.49) 8 Active confirmed Problem Type 2 diabetes mellitus with peripheral angiopathy (833460243) Type 2 diabetes mellitus with diabetic peripheral [...] 10/15/2024 Encounters Encounter Location Date Provider Diagnosis [facility] [address] [place] [address] 02/03/2024 JADEN CARO Tinea unguium B35.1 ; Type 2 diabetes mellitus with diabetic peripheral angiopathy without gangrene, unspecified whether half-way insulin use E11.51 and Plantar neuroma of left foot G57.62 [facility] [address] [place] [address] 05/14/2024 JADEN CARO Tinea unguium B35.1 ; Type 2 diabetes mellitus with diabetic peripheral angiopathy without gangrene, unspecified whether half-way insulin use E11.51 and Plantar neuroma of left foot G57.[address] [address] 07/30/2024 JADEN CARO Tinea unguium B35.1 ; Type 2 diabetes mellitus with diabetic peripheral angiopathy without gangrene, unspecified whether terminal press operator insulin use E11.51 and Plantar neuroma of left foot G57.[address] [address] 10/15/2024 JADEN CARO Tinea unguium B35.1 ; Type 2 diabetes mellitus with diabetic peripheral angiopathy without gangrene, unspecified whether terminal press operator insulin use E11.51 and Plantar neuroma of left foot G57.62 Assessments Encounter Date Diagnosis (ICD Code) Assessment Notes Treatment Notes Treatment Clinical Notes Section Notes 02/03/2024 Tinea unguium (ICD-10 - B35.1) 05/14/2024 Tinea unguium (ICD-10 - B35.1) 07/30/2024 Tinea unguium (ICD-10 - B35.1) 10/15/2024 Tinea unguium (ICD-10 - B35.1) 10/15/2024 Type 2 diabetes mellitus with diabetic peripheral angiopathy without gangrene, unspecified whether terminal press operator insulin use (ICD-10 - E11.51) We discussed [...] the nail by use of a sharp caramel cutter helper and/or rotary instrument. Reason for debridement include [...] without gangrene, unspecified whether half-way insulin use (ICD-10 - E11.51) We discussed [...] the nail by use of a sharp caramel cutter helper and/or rotary instrument. Reason for debridement include [...] without gangrene, unspecified whether half-way insulin use (ICD-10 - E11.51) We discussed [...] the nail by use of a sharp caramel cutter helper and/or rotary instrument. Reason for debridement include [...] diabetic peripheral angiopathy without gangrene, unspecified whether terminal press operator insulin use (ICD-10 - E11.51) We discussed [...] the nail by use of a sharp caramel cutter helper and/or rotary instrument. Reason for debridement include [...] Details Provider Name:JADEN CRUZ, 02/11/2025 01:00:00 PM, [address] [place], [address], Insurance Providers Payer Name Payer Address Payer Phone Subscriber Number Group Number Insured Name Patient Relationship to Insured Coverage Start Date Coverage End Date [facility] MEDICARE ADVANTAGE [address] [address] [place] [address] [id number] JESSE HARDEN Self - patient is the insured [facility] DEPT OF PUBLIC AID [address] [address] [place] [address] [phone] [id number] JESSE HARDEN Self - patient is the insured
--- OUTSIDE RECORDS SUMMARY | 2024-12-08 10:16 | XMS_ITS | Clinical Summary ---
Author Organization [facility] Address [facility] [place] [address] Care Team Providers Care Freight Rate Analyst Name Role Phone Beth Leal CD STORAGE AND MATERIALS MAKE UP HELPER- Unavailable [phone] Lakshmi Reyes NP Primary Care Provider + [phone] Allergies Active Allergy Reactions Criticality Noted Date [...] ncontrolled type 2 diabetes mellitus with hyperglycemia ([facility]) Inject 100 units daily at [...] Type Department Care Team Description 10/10/[address] [address] Real [place] Jr., DO Appointment Reminder 10/03/2024 Orders Only [address] [address] Real [place] Jr., DO 09/13/[address] [address] Tamica Avila PA Appointment Request from Last [...] Sex Assigned at Female 04/02/2024 10:15 AM TEACHER SPECIALIST Legal Sex Female 1:50 PM CDT Gender [...] cm (5' 4) 04/02/2024 10:1 6 AM TEACHER SPECIALIST Body Mass Index 47.77 04/02/2024 10:16 AM TEACHER SPECIALIST Plan of Treatment Health Maintenance Due Date [...] (2 of 2) 10/31/2020 09/05/2020 PHQ-2 (Physician [place]) 02/22/2024 Colorectal Cancer Screening Colonoscopy (10 Years) 04/30/2024 04/30/2014 COVID-19 Vaccine ( season) 2024 10/18/2020, 09/27/2020 Influenza Adult (#1) 2024 12/18/2020, 11/24/2017, 02/02/2017, Additional history exists Cervical Cancer Screening Pap Smear (Age 30 to 64) Every 3 Years 05/01/2027 04/30/2024 Cervical Cancer Screening with HPV 05/01/2027 Hepatitis A Vaccines Aged Out No long er eligible based on patient's age to complete this topic Meningococcal B Vaccine Aged Out No l [...] Comments LIPID PANEL Routine 03/12/2019 10:48 AM TEACHER SPECIALIST Mixed hyperlipidemia HEMOGLOBIN, GLYCOSYLATED Routine 03/12/2019 10:48 AM TEACHER SPECIALIST Diabetes mellitus COLONOSCOPY GENERIC (SCAN ORDER) Routine 04/30/2014 12:00 AM CDT from Last 3 Months or Most Recently Relevant to Health Maintenance Results * (ABNORMAL) HEMOGLOBIN, GLYCOSYLATED (03/12/2019 10:48 AM TEACHER SPECIALIST) HGB A1C 8.6(H) <5.7 % 03/12/2019 11:19 AM TEACHER SPECIALIST [facility] Comment: 5.7 TO 6.4% INCREASED RISK OF DIABETES > OR = 6.5% CONSISTENT WITH DIABETES PER ADA GUIDELINES ESTIMATED AVG GLUCOSE 200(H) 70 - 140 MG/DL 03/12/2019 11:19 AM TEACHER SPECIALIST [facility] 03/12/2019 10:4 8 AM TEACHER SPECIALIST us Reena Ochoa NP LABORATORY Final Result [facility] [address] [place] [address], * (ABNORMAL) LIPID PANEL (03/12/2019 10:48 AM TEACHER SPECIALIST) CHOLESTEROL 187 <200 MG/DL 03/12/2019 12:00 PM [facility] Comment: THE NATIONAL LIPID ASSOCIATION AND THE NATIONAL CHOLESTEROL EDUCATION PROGRAM (NCEP) HAVE SET THE FOLLOWING GUIDELINES FOR TOTAL CHOLESTEROL IN ADULTS AGES 18 AND UP. DESIRABLE: <200 BORDERLINE HIGH: 200-239 HIGH: > OR = 240 TRIGLYCERIDES 138 <150 MG/DL 03/12/2019 12:00 PM [facility] Comment: THE NATIONAL LIPID ASSOCIATION AND THE NATIONAL CHOLESTEROL EDUCATION PROGAM (NCEP) HAVE SET THE FOLLOWING GUIDELINES FOR TRIGLYCERIDES IN ADULTS AGES 18 AND UP. NORMAL: <150 BORDERLINE HIGH: 150 TO 199 HIGH: 200 TO 499 VERY HIGH: >499 HDL 34(L) >49 MG/DL 03/12/2019 12:00 PM [facility] Comment: THE NATIONAL LIPID ASSOCIATION AND THE NATIONAL CHOLESTEROL EDUCATION PROGAM (NCEP) HAVE SET THE FOLLOWING GUIDELINES FOR HDL CHOLESTEROL IN ADULTS AGES 18 AND UP. MALES: >39 FEMALES: >49 LDL (CALCULATED) 125(H) <100 MG/DL 03/12/19 12:00 PM [facility] Comment: THE NATIONAL LIPID ASSOCIATION AND THE NATIONAL CHOLESTEROL EDUCATION PROGAM (NCEP) HAVE SET THE FOLLOWING GUIDELINES FOR LDL CHOLESTEROL IN ADULTS AGES 18 AND UP. DESIRABLE: <100 ABOVE DESIRABLE: 100 TO 129 BORDERLINE HIGH: 130 TO 159 HIGH: 160 TO 189 VERY HIGH: >189 VLDL CALCULATION 28 MG/DL 03/12/19 12:00 PM [facility] Comment:REFERENCE RANGE NOT ESTABLISHED CHOL/HDL RATIO 5.5 03/12/2019 12:00 PM [facility] Comment:REFERENCE RANGE NOT ESTABLISHED LDL/HDL 3.7 03/12/2019 12:00 PM [facility] Comment:REFERENCE RANGE NOT ESTABLISHED NON HDL CHOLESTEROL 153 MG/DL 03/12/2019 12:00 PM [facility] Comment:REFERENCE RANGE NOT ESTABLISHED 03/12/2019 10:4 8 AM TEACHER SPECIALIST Lakshmi Reyes NP LABORATORY Final Result [facility] [address] [place] [id number], * COLONOSCOPY (04/30/2014 12:00 AM CDT) 04/30/2014 us Documents Scanned SCANNING Final Result [facility] from Last 3 Months or Most Recently Relevant to Health Maintenance Insurance MEDICAID MEDICAID Member Subscriber Plan / Payer (Ef fective 2018-Present) Name:Flory Diaz Relation to Subscriber:Self Name:Flory Diaz Payer ID:Not on file Group ID:Not on file Type:Not on file Address: [address] MEDICARE [employer] MEDICARE Care Teams Freight Rate Analyst Relationship Specialty Start Date End Date Beth Leal FNP- PCP - Med Group - [facility] Attributed Provider 11/21/16 Lakshmi Reyes NP [address] [place] [address] PCP - General 10/30/23
--- OUTSIDE RECORDS SUMMARY | 2024-12-08 10:16 | XMS_ITS | Data Portability ---
Author Organization [facility] Address [address] [place] [address] Care Team Providers Care Clinical Pharmacist Name Role Phone ZEESHAN HADLEY Primary Care [...] have to have sex. FU 1 month [email or web address] Not available 07/16/2022 14:04:08 09/06/2022 09/06/2022 doing well with compounded estrogen, no allergic sx, improving dryness continue use, will try intercourse. FU WWE [email or web address] Not available 09/14/2022 22:15:51 04/30/2024 04/30/2024 Annual gynecological exam performed. Patient will come back in a year unless there are new symptoms. [email or web address] Not available 04/30/2024 10:19:46 Plan of Treatment Reminders Order Date Submit Date Provider Last Modified By Organization Details Last Modified Time Details Appointments None recorded. Lab None recorded. Referral None recorded. Procedures None recorded. Surgeries None recorded. Imaging None recorded. Medication Orders Diflucan 150 mg tablet 2022 023 [id number], [address] [place], [address], 10:24:06 Patient TargetsNo targets recorded. Patient InstructionsNo instructions recorded. Reason for Referral None Reported. Results Created Date Observation Date Name Description Value Unit Range Abnormal Flag Note LastModifiedBy Organization Detail LastModifiedTime 05/01/1904/30/2024 IMAGE GUIDE D PAP AND HPV REGAR DLESS image guided Pap, HPV regardless of Pap result SEE RESULT S BELOW CASE REPOR T: Cytol ogy Gynec ologi derek Repor t Case: [id number] Autho jadsangeeta kris Provi hill: Carey Lin NP Colle cted: 04/30 1018 Order ing Locat ion: [place] [facility] Recei mary: 05/01 0114 First Scree n: [address] , ASAEL Speci men: Hazel kiser Pap - Image d, Cervi x STATE MENT OF ADEQU ACY: Satis facto ry for evalu ation Trans forma tion zone compo nent absen t ----- ----- ----- ----- ----- ----- ----- ----- ----- ----- ----- ----- ----- ----- ----- ----- ----- ---- FINAL DIAGN OSIS: Negat kevin for Intra epith elial Juli rutherford or Eloise avery (NIL) . Elect tash fu by Michelle bettencourt, CT on 2024 at 1028 CDT ----- ----- ----- ----- ----- ----- ----- ----- ----- ----- ----- ----- ----- ----- ----- ----- ----- ---- HPV RESUL TS: HPV mRNA E6/E7 : No HPV mRNA Detec marshall NOTE: This high risk HPV mRNA assay detec ts fourt een high- risk HPV types (16, 18, 31, 33, 35, 39, 45, 51, 52, 56, 58, 59, 66, 68) witho ut diffe renti ation . COMME NT: This speci men was revie wed by a Cytot echno logis t and/o r Patho logis t (as indic ated in this repor t) after evalu ation using the Thinp rep Imagi ng Syste m. CLINI DEREK INFOR MATIO N: Menst rual Statu s: LMP (if appli cable ): Clini derek Histo ry/Pr eviou s Pap: Type of Neopl jaiden (if appli cable ): Signi fican t Clini derek Findi ngs: Other Histo ry: Hormo maricruz (if appli cable ): PAP EDUCA BAUTISTA L NOTE: The Pap Test is a scree rashel test with an inher ent false negat kevin rate. Liqui d-bas ed sampl ing may decre ase, but will not elimi annalee, false negat kevin resul ts. A negat kevin resul t does not precl ude the prese nce and/o r devel opmen t of disea se, since the prese nce of abnor mal cells in the sampl e depen ds on the locat ion of the lesio n and sampl ing techn ique. Yamileth nued regul ar scree rashel is the best metho d of cance r preve ntion . If repor marshall cytol ogic findi ng do not corre late with physi derek and/o r histo rical findi ngs, furth er inves tigat ion is recom godfrey d, as clini morgan acevedo nted. Not Available [facility] (Lab) [address], [place], [address], 05/03/2024 11:32:41 Result Notes None recorded. Problems Name Problem SNOMED Code Status Onset Date Resolution Date Notes Provider Name and Address Organization Details Recorded Time Type 2 diabetes mellitus 81659197 Active 2022 Paige Thakur MD [address], [place], [address], [facility] 3 11:23:47 Hyperlipidem ia 40581288 Active 2022 Paige Thakur MD [address], [place], [address], [facility] 3 11:23:57 Body mass index 40+ - severely obese 744054619 Active 2022 Paige Thakur MD [address], [place], [address], [facility] 3 14:02:27 Problem Notes None recorded. Procedures Surgical History Date Name Laterality Status Provider Name and Address Organization Details Recorded Time 05/12/19 Date of Last Pap Smear completed [facility] 09/06/2022 10:31:07 biopsy of breast completed [facility] 07/16/2022 11:18:53 Tubal Ligation completed [facility] 07/16/2022 11:18:59 tonsillectomy completed Catie [facility] 04/30/2024 10:29:02 Imaging Results None recorded. Procedure Notes None recorded. Medical Equipment None Reported. Allergies Allergen ID Allergen Name Allergen Category Reaction Reaction Severity Criticality Documentation Date Start Date Code Code System Note Provider Name and Address Organization Details Recorded Time codeine medicatio n Not available Not available Not available 07/16/2022 2670 RxNorm [facility] 11:17:53 Medications Name Sig Start [...] Updated DateTime 04/30/2024 162.56 cm 48.3 kg/m2 279408.89 g 130/76 mm[Hg] Catie Hardy [facility] 04/30/2024 10:22:32 Date Recorded Body height Body mass index (BMI) Body weight Systolic And Diastolic Provider Name and Address Organization Details Last Updated DateTime 07/16/2022 162.56 cm 51.3 kg/m2 456748.12 g 130/77 mm[Hg] [facility] 07/16/2022 11:15:29 Date Recorded Body height Body mass index (BMI) Body weight Systolic And Diastolic Systolic And Diastolic Provider Name and Address Organization Details Last Updated DateTime 09/06/2022 162.56 cm 51.8 kg/m2 958449.9 g 157/81 mm[Hg] 148/82 mm[Hg] [facility] 15:24:02 Social History Question Answer Notes LastModified by [email or web address] Details LastModified Time Tobacco Smoking Status Never Smoker [facility] 07/16/2022 09:42:04 Has Tobacco Cessation Counseling Been Provided? No Information not available 07/16/2022 Sex: Unknown Functional Status Question Answer Note LastModified by [email or web address] Details LastModified Time Do you use any [...] Diagnosis SNOMED-CT Code Diagnosis ICD10 Code Diagnosis IMO Codes Diagnosis Note [id number] Paige Thakur MD [facility] [address],[facility] [place] [address] 07/16/2022 10:11:24 07/16/2022 14:09:35 Atrophic vaginitis 09291086 N95.2 Candidiasis of vulva 108 5006 B37.31 Body mass index 40+ - severely obese 446953250 Z68.43 312006 Paige Thakur MD [facility] [address] [address] 09/06/2022 15:17:02 09/09/2022 12:53:07 Atrophic vaginitis 44344799 N95.2 Dyspareunia 23332479 N94 .10 [id number] Carey Jeannettecasie WILBERT [facility] [address] [address] 02/01/2024 11:30:29 02/01/2024 15:33:49 Left without being seen 8677346678 9102 Z53.21 [id number] Carey Lin WILBERT [facility] [address] [address] 04/30/2024 10:00:12 04/30/2024 11:26:14 Gynecologic examination 28606094 Z01.419 WWEpostmen opausalPap - done todaySTI screen [...] advised.Qu estions have been answered. Vaginal dryness 41706807 N89.8 refills sent for compounded vaginal estradiol cream [facility]/a reviewed Health Concerns Section Related Observation LastModified by Organization Detai ls LastModified Time None Recorded Concern Status LastModified by Organization Details LastModified Time None Recorded Advance Directives Directive None Recorded Payers Insurance Date Sequence Insurance Name Policy Number Policy Pastrana Covered Member ID Pastrana Member ID Guarantor Name 04/27/2024 1 [facility] (MEDICARE REPLACEMENT/A DVANTAGE - PPO) [id number] Flory Diaz [id number] Flory Diaz 04/27/2024 2 [place]: [place] [employer] Flory Diaz [id number] Flory Diaz Notes Date Note Type Note [...] Depression:denies Domestic violence:denies Paige Thakur MD [address], [place], [address], [facility] 07/16/2022 14:04:26 3 text/html Here for follow up atrophy/dyspareunia/dryne ss. Had had issues with estrace and premarin creams, has been using compounded estrogen for 6w without red bumps or irritation. She states it feels less dry but has not tried intercourse yet. Paige Thakur MD [address], [place], [address], [facility] 09/14/2022 22:16:04 5 text/html Annual Stippler Post-MenopausalReported by PatientGenitourinary symptomsFor menopausal symptoms, patient [...] has helped with dryness JOSAFAT [place] [address], [place], [address], [place] [facility] 04/30/2024 11:18:50 OBGyn Episode Ob Episode Information Episode Created Date Number of Fetuses Patient Bloodtype Patient rh Status Prepregnancy Weight lbs Domestic Partner Domestic Partner Phone Father Name Button And Buckle Maker Status 07/17/19 23 1 CLOSED Fetus Data [...]
--- OUTSIDE RECORDS SUMMARY | 2024-12-08 10:16 | XMS_ITS | Encounter Summary ---
Author Organization [facility] Address formerly [facility] [place] [address] Care Team Providers Care Judicial Registrar Name Role Phone Be Pantoja MD Primary Care Provider Luke Garcia MD Unavailable Unavailable Beth Leal-BC Unavailable [phone] Lakshmi Reyes NP Primary Care Provider + [phone] Encounter Details Date Type Department Care Team (Late st Contact Info) Description 07/29/2018 Abstract SFL CONVERSION [address] [place] [address] , Generic ConversionMD Social History Tobacco Use Types Packs/Day Years Used Date Smoking Tobacco: Never Comments Unknown Sex and Gender Information Value Date Recorded Sex Assigned at Female 04/02/2024 10: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
--- NOTE | 2024-12-08 10:18 | ED_ITS ---
HPI - General Adult General Chief complaint: Extremity Problem,Nontraumatic Stated complaint: back pain into left leg Time Seen by Provider: 12/08/24 10:18 Source: patient Mode of arrival: wheelchair Limitations: no limitations History of Present Illness HPI narrative: The patient is a 64-year-old woman with morbid obesity, 125 kg, chronic sciatica affecting the left lower back with tingling and numbness in the left 1st 2nd and 3rd toes ongoing for the last 9 months, osteoarthritis with knee pain, she takes hydrocodone 5 mg 325 mg twice daily (she splits one tablet of Knickerbocker 10/325 in two and takes the two halves each day) for the last year, CHF, diabetes, hyperlipidemia, restless leg syndrome, migraine headaches, and fibromyalgia. The patient lifted boxes 1 week ago since they were moving. Four days ago, she noted pain starting in the left lower back and radiating down her left leg to the left lower lateral aspect of her leg. She has applied heat to the lower back and has felt better. She still has symptoms in the left lower leg. She feels there may be some swelling there. She is unable to raise her legs when she is sleeping in a recliner due to pain. She has taken 3 half tablets of the Knickerbocker 10/325 he in the past 12 hours, 1 at 7:00 p.m. 1 at 1:00 a.m. this morning and 1 at 7:00 a.m. this morning. She still has symptoms in the left lower extremity so she comes here for further evaluation. She does have a prescription for Flexeril but she is not currently taking that. She sees a [facility] which prescribed Knickerbocker for her. They have advised her to undergo injections in the lower back but she has declined for now. The patient has a wheelchair and she gets around at home with a wheelchair. She has a difficult time ambulating due to the pain and sciatica. No fevers or chills or URI symptoms. No chest pain or abdominal pain. No falls or trauma. No motor weakness in the lower extremities, only pain. Related Data Allergies Allergy/AdvReac Type Severity Reaction Status Date / Time celecoxib Allergy Intermediate Rash Verified 12/08/24 10:39 prednisone Allergy Intermediate Rash Verified 12/08/24 10:39 codeine AdvReac Nausea and Verified 12/08/24 10:39 Vomiting Review of Systems Review of Systems: All systems reviewed & are unremarkable except as noted in HPI and below Constitutional: Constitutional: Denies chills, Denies excessive sweating, Denies fatigue, Denies fever(s), Denies headache(s) and Denies weakness Eyes: Eyes: Denies change in vision and Denies photophobia ENT: Denies dysphagia, Denies dizziness, Denies headache(s), Denies lip swelling, Denies nasal congestion, Denies sore throat and Denies tongue swelling Cardiovascular: Cardiovascular: Denies chest pain, Denies syncope, Denies rapid heart rate and Denies dyspnea Respiratory: Respiratory: Denies cough, Denies dyspnea and Denies wheezing Gastrointestinal: Gastrointestinal: Denies abdominal pain, Denies constipation, Denies dysphagia, Denies diarrhea, Denies nausea and Denies vomiting Genitourinary: Genitourinary: Denies hematuria, Denies urinary frequency, Denies dysuria and Denies urinary urgency Musculoskeletal: Musculoskeletal: Reports back pain (With sciatica and to the left lower extremity), Denies myalgias, Reports arthralgias (Chronic knee pain), Denies joint swelling and Denies numbness Integumentary/Breasts: Skin/Breast: Denies pruritus, Denies erythema and Denies rash Neurologic: Denies confusion, Denies dizziness, Denies syncope, Denies headache(s), Denies focal weakness, Denies numbness and Denies weakness Psychiatric: Psychiatric: Denies anxiety and Denies confusion Endocrine: Endocrine: Denies excessive sweating and Denies fatigue Hematologic/Lymphatic: Hematologic/Lymphatic: Denies easy bleeding and Denies easy bruising Allergic/Immunologic: Allergic/Immunologic: Denies lip swelling, Denies tongue swelling and Denies wheezing PMFSH Past Medical History Medical History Fibromyalgia Hyperlipidemia Type 2 diabetes mellitus CHF (congestive heart failure) Migraines Morbid obesity Surgical History Surgical History History of bilateral tubal ligation Family History Family History Father Diabetes mellitus Malignant neoplasm of prostate Heart disease Hypertension Mother Breast cancer Grandparent Diabetes mellitus Hypertension Heart disease Cerebrovascular accident Other Diabetes mellitus Hypertension Heart disease Social History Social History Smoking status: Never smoker Second hand tobacco smoke exposure: No Alcohol intake: former Substance use: never Substance use type: does not use Do You Feel Safe in your Home?: Yes Lack of Transportation: No Lack of Food: Never True Current Housing: I Have Housing Concerned About Future Housing: No Difficulty Paying Gas/Electric Bills: No Difficulty Paying for Meds: No Currently Unemployed: No Education: High School Diploma/GED Difficulty w/ Childcare or Family Care: No Spiritual care concerns: No Exam Const: General: healthy appearing, no acute distress, alert and well nourished Nutritional Appearance: well nourished and obese Orientation/ consciousness: patient oriented x3 Limitations: no limitations HENMT: Head: normal to inspection Ears: external ears normal Face/Nose/Sinus: normal facial exam Face and sinus: normal facial exam Mouth: Yes moist mucous membranes Throat: posterior oropharynx normal Eyes: Conjunctivae: conjunctivae normal Pupils: Equal, round and reactive pupils present EOM: EOMs intact bilaterally Neck: Neck: normal visual inspection and no meningeal signs Chest: Chest palpation & inspection: normal inspection of the chest and no tenderness Resp: Effort & Inspection: normal respiratory effort and not labored Auscultation: clear to auscultation bilaterally, no crackles, no rhonchi and no wheezes Cardio: Rate: regular rate Rhythm: regular rhythm Heart sounds: no murmurs GI: Inspection: non-distended GI Palp: Yes Soft to palpation, No Tenderness to palpation present (GI), No Guarding due to palpation present (GI) and No Rebound tenderness present : General: Yes no CVA tenderness Back/Spine/Pelvis: Back: no CVA tenderness Cervical Spine: No Cervical spine tenderness Thoracic/Lumbar Spine: No thoracic spinal tenderness Skin: General skin exam: normal color Rashes: no rashes Wounds: no wounds Neuro: General: patient oriented x3, moves all extremities, no meningeal signs, no focal motor deficits and CN's II-XI intact bilaterally Cranial nerves: Yes Equal, round and reactive pupils present Speech: normal speech Motor exam (neuro): 5/5 motor strength present throughout Sensory Exam: normal sensation Extrem: General: normal to inspection and no clubbing, cyanosis or edema Other: There is no significant edema in either lower extremity. No signs of a lower extremity DVT on the left such as erythema, tenderness, edema, or warmth. Pulses intact in the feet. Psych: Mental Status: mental status grossly normal Affect: normal affect Course Course Emergency Course: Known sciatica left-sided for the last 9 months, lifted boxes 1 week ago, now with recurrent worsening symptoms, not relieved by hydrocodone 10/325 (took three halves of this medicine in the past 12 hours). Has a wheelchair. Will treat with Robaxin, Tramadol, and IM Toradol. We also discussed steroids: she is agreeable with a short course, and will watch her sugars. She is agreeable with dexamethasone 10 mg x 1. She cannot tolerate prednisone since it causes her diarrhea. Will discharge her on a Medrol Dosepak. Her pain improved after Robaxin tramadol and IM Toradol. Will discharge on Robaxin as well as needed. She has follow-up with her PCP. She has avoid heavy lifting. All questions answered. Vital Signs Vital signs: Vital Signs Temperature 36.4 C 12/08/24 10:06 Pulse Rate 84 12/08/24 10:06 Respiratory Rate 18 12/08/24 10:06 Blood Pressure 147/79 H 12/08/24 10:06 Pulse Oximetry 100 12/08/24 10:06 Oxygen Delivery Room Air 12/08/24 10:06 Temperature 36.4 C 12/08/24 11:30 Pulse Rate 801 H 12/08/24 11:30 Respiratory Rate 20 12/08/24 11:30 Blood Pressure 145/81 H 12/08/24 11:30 Pulse Oximetry 97 12/08/24 11:30 Oxygen Delivery Room Air 12/08/24 11:30 Medical Decision Making Vital Signs Vital Signs: Vital Signs Temperature 36.4 C 12/08/24 10:06 Pulse Rate 84 12/08/24 10:06 Respiratory Rate 18 12/08/24 10:06 Blood Pressure 147/79 H 12/08/24 10:06 Pulse Oximetry 100 12/08/24 10:06 Oxygen Delivery Room Air 12/08/24 10:06 Temperature 36.4 C 12/08/24 11:30 Pulse Rate 801 H 12/08/24 11:30 Respiratory Rate 20 12/08/24 11:30 Blood Pressure 145/81 H 12/08/24 11:30 Pulse Oximetry 97 12/08/24 11:30 Oxygen Delivery Room Air 12/08/24 11:30 Discharge Plan Discharge Clinical Impression: Low back pain with left-sided sciatica Patient Disposition: Home Condition: Improved Additional Instructions: You have left-sided sciatica. Avoid heavy lifting. Continue hydrocodone as you are currently taking as needed for severe pain but use sparingly Continue diclofenac delayed release twice daily to help decrease the inflammation in the back Start Medrol Dosepak, steroids. This will increase your sugars. Watch your sugars closely. Start Robaxin to help relax the muscles in the back and decrease your pain Follow-up with your primary care provider in the next 1-2 weeks for re- evaluation Return if worse Patient Language: Tristanian Prescriptions: New methylprednisolone [Medrol (Harsh)] 4 mg tablets,dose pack See Rx Instructions .ROUTE .COMPLEX Qty: 21 0RF Rx Instructions: for 6 days methocarbamol 750 mg tablet 750 mg PO TID Qty: 30 0RF Rx Instructions: start ROBAXIN three times daily AROUND THE CLOCK to help ease the pain; when the pain decreases, switch to using it three times daily NEEDED. No Action hydrocodone-acetaminophen 5-325 mg tablet 1 tablet PO BID PRN (Reason: pain) Qty: 45 0RF ropinirole 0.25 mg tablet 0.25 mg PO QHS Qty: 90 0RF Trulicity 4.5 mg/0.5 mL pen injector 4.5 mg subcut WEEKLY Qty: 6 3RF insulin degludec [Tresiba FlexTouch U-200] 200 unit/mL (3 mL) insulin pen See Rx Instructions .ROUTE .COMPLEX Qty: 36 3RF Dose Instruction: INJECT 90 UNITS (0.45 ML) SUBCUTANEOUSLY BEDTIME Rx Instructions: INJECT 60 UNITS (0.45 ML) SUBCUTANEOUSLY BEDTIME (DME) lancets [Accu-Chek Softclix Lancets] [facility] See Rx Instructions .Route Qty: 200 12RF Rx Instructions: four times daily (DME) blood-glucose meter [OneTouch Ultra2 Meter] Misc See Rx Instructions .Route Qty: 1 0RF Rx Instructions: three times daily rosuvastatin 20 mg tablet See Rx Instructions .ROUTE .COMPLEX Qty: 90 3RF Dose Instruction: TAKE 1 TABLET BY MOUTH EVERY DAY Rx Instructions: TAKE 1 TABLET BY MOUTH EVERY DAY (DME) OneTouch Ultra Test Strip See Rx Instructions .ROUTE .COMPLEX Qty: 100 8RF Dose Instruction: TEST 3 TIMES A DAY Rx Instructions: TEST 3 TIMES A DAY Jardiance 25 mg tablet See Rx Instructions .ROUTE .COMPLEX Qty: 90 1RF Dose Instruction: TAKE 1 TABLET BY MOUTH EVERY DAY Rx Instructions: TAKE 1 TABLET BY MOUTH EVERY DAY furosemide 20 mg tablet See Rx Instructions .ROUTE .COMPLEX Qty: 90 1RF Dose Instruction: TAKE 1 TABLET BY MOUTH DAILY NEEDED FOR EDEMA Rx Instructions: TAKE 1 TABLET BY MOUTH DAILY NEEDED FOR EDEMA cyclobenzaprine 5 mg tablet 5 mg PO TID PRN (Reason: Muscle Spasm) Qty: 30 0RF diclofenac sodium 75 mg tablet,delayed release (DR/EC) 75 mg PO BID Qty: 180 1RF Follow-up/Referrals: Lakshmi Reyes APRN [Primary Care Provider, Family Practice] - 2 Weeks Referral Note: Acute left-sided sciatica, already on Knickerbocker 10/325 half tablet 2 times daily and diclofenac and p.r.n. Flexeril but not taking. Started Medrol Dosepak and Robaxin. Clinical Impression: Low back pain with left-sided sciatica Time of Disposition: 11:14
[2024-12-08] MEDS: traMADol HCL (*CRX) 50 MG TABLET 100 MG PO (10:36)
[2024-12-08] MEDS: KETOROLAC (*BKC) 60 MG/2 ML VIAL IM (10:37)
--- OUTSIDE RECORDS SUMMARY | 2024-12-08 10:42 | XMS_ITS | Clinical Summary ---
Author Organization [facility] Address [facility] [place] [address] Care Team Providers Care Event Marketing Assistant Name Role Phone Beth Leal ASSISTANT CLINICAL DIRECTOR- Unavailable [phone] Lakshmi Reyes NP Primary Care Provider + [phone] Allergies Active Allergy Reactions Criticality Noted Date [...] ncontrolled type 2 diabetes mellitus with hyperglycemia ([facility]/HCC [facility]) Inject 100 units daily at [...] Type Department Care Team Description 10/10/[address] [address] Real Lancaster Jr., DO Appointment Reminder 10/03/2024 Orders Only [address] [address] Real Lancaster Jr., DO 09/13/[address] [address] Tamica Avila PA Appointment Request from Last [...] Sex Assigned at Female 04/02/2024 10:15 AM STAMPING DIE MAKER Legal Sex Female 1:50 PM CDT Gender [...] cm (5' 4) 04/02/2024 10:1 6 AM STAMPING DIE MAKER Body Mass Index 47.77 04/02/2024 10:16 AM STAMPING DIE MAKER Plan of Treatment Health Maintenance Due Date [...] (2 of 2) 10/31/2020 09/05/2020 PHQ-2 (Physician Marshall) 02/22/2024 Colorectal Cancer Screening Colonoscopy (10 Years) [...] Comments LIPID PANEL Routine 03/12/2019 10:48 AM STAMPING DIE MAKER Mixed hyperlipidemia HEMOGLOBIN, GLYCOSYLATED Routine 03/12/2019 10:48 AM STAMPING DIE MAKER Diabetes mellitus COLONOSCOPY GENERIC (SCAN ORDER) Routine 04/30/2014 12:00 AM CDT from Last 3 Months or Most Recently Relevant to Health Maintenance Results * (ABNORMAL) HEMOGLOBIN, GLYCOSYLATED (03/12/2019 10:48 AM STAMPING DIE MAKER) HGB A1C 8.6(H) <5.7 % 03/12/2019 11:19 AM STAMPING DIE MAKER [facility] Comment: 5.7 TO 6.4% INCREASED RISK OF DIABETES > OR = 6.5% CONSISTENT WITH DIABETES PER ADA GUIDELINES ESTIMATED AVG GLUCOSE 200(H) 70 - 140 MG/DL 03/12/2019 11:19 AM STAMPING DIE MAKER [facility] 03/12/2019 10:4 8 AM STAMPING DIE MAKER us Reena Ochoa NP LABORATORY Final Result [facility] [address] [place] [address], * (ABNORMAL) LIPID PANEL (03/12/2019 10:48 AM STAMPING DIE MAKER) CHOLESTEROL 187 <200 MG/DL 03/12/2019 12:00 PM [facility] Comment: THE NATIONAL LIPID ASSOCIATION AND THE NATIONAL CHOLESTEROL EDUCATION PROGRAM (NCEP) HAVE SET THE FOLLOWING GUIDELINES FOR TOTAL CHOLESTEROL IN ADULTS AGES 18 AND UP. DESIRABLE: <200 BORDERLINE HIGH: 200-239 HIGH: > OR = 240 TRIGLYCERIDES 138 <150 MG/DL 03/12/2019 12:00 PM [facility] Comment: THE NATIONAL LIPID ASSOCIATION AND THE NATIONAL CHOLESTEROL EDUCATION PROGAM (NCEP) HAVE SET THE FOLLOWING GUIDELINES FOR TRIGLYCERIDES IN ADULTS AGES 18 AND UP. NORMAL: <150 BORDERLINE HIGH: 150 TO 199 HIGH: 200 TO 499 VERY HIGH: >499 HDL 34(L) >49 MG/DL 03/12/2019 12:00 PM [facility] Comment: THE NATIONAL LIPID ASSOCIATION AND THE NATIONAL CHOLESTEROL EDUCATION PROGAM (NCEP) HAVE SET THE FOLLOWING GUIDELINES FOR HDL CHOLESTEROL IN ADULTS AGES 18 AND UP. MALES: >39 FEMALES: >49 LDL (CALCULATED) 125(H) <100 MG/DL 03/12/19 12:00 PM [facility] Comment: THE NATIONAL LIPID ASSOCIATION AND THE NATIONAL CHOLESTEROL EDUCATION PROGAM (NCEP) HAVE SET THE FOLLOWING GUIDELINES FOR LDL CHOLESTEROL IN ADULTS AGES 18 AND UP. DESIRABLE: <100 ABOVE DESIRABLE: 100 TO 129 BORDERLINE HIGH: 130 TO 159 HIGH: 160 TO 189 VERY HIGH: >189 VLDL CALCULATION 28 MG/DL 03/12/19 12:00 PM [facility] Comment:REFERENCE RANGE NOT ESTABLISHED CHOL/HDL RATIO 5.5 03/12/2019 12:00 PM [facility] Comment:REFERENCE RANGE NOT ESTABLISHED LDL/HDL 3.7 03/12/2019 12:00 PM [facility] Comment:REFERENCE RANGE NOT ESTABLISHED NON HDL CHOLESTEROL 153 MG/DL 03/12/2019 12:00 PM [facility] Comment:REFERENCE RANGE NOT ESTABLISHED 03/12/2019 10:4 8 AM STAMPING DIE MAKER Lakshmi Reyes NP LABORATORY Final Result [facility] [address] [id number], * COLONOSCOPY (04/30/2014 12:00 AM CDT) 04/30/2014 us Documents Scanned SCANNING Final Result [facility] from Last 3 Months or Most Recently Relevant to Health Maintenance Insurance MEDICAID MEDICAID Member Subscriber Plan / Payer (Ef fective 2018-Present) Name:Flory Diaz Relation to Subscriber:Self Name:Flory Diaz Payer ID:Not on file Group ID:Not on file Type:Not on file Address: [address] MEDICARE [facility] MEDICARE Care Teams Event Marketing Assistant Relationship Specialty Start Date End Date Beth Leal FNP- PCP - Med [facility] - [facility] Attributed Provider 11/21/16 Lakshmi Reyes NP [address] [place] [address] PCP - General 10/30/23
--- OUTSIDE RECORDS SUMMARY | 2024-12-08 10:42 | XMS_ITS | Encounter Summary ---
Author Organization [facility] Address [facility] [place] [address] Care Team Providers Care Sweatband Separator Name Role Phone Be Pantoja MD Primary Care Provider Luke Garcia MD Unavailable Unavailable Beth Leal-BC Unavailable [phone] Lakshmi Reyes NP Primary Care Provider + [phone] Encounter Details Date Type Department Care Team (Late st Contact Info) Description 07/29/2018 Abstract [facility]FL CONVERSION [address] [place] [address] , Generic ConversionMD Social History Tobacco Use Types Packs/Day Years Used Date Smoking Tobacco: Never Comments Unknown Sex and Gender Information Value Date Recorded Sex Assigned at Female 04/02/2024 10:15 AM CLOUD AUTOMATION TESTER Legal Sex Female 1:50 PM CDT Gender [...] on filedocumented in this encounter Care Teams Sweatband Separator Relationship Specialty Start Date End [place] [address] PCP - General FAMILY PRACTICE 07/21/16 10/29/23 [place] [address] PCP - Med Group - [facility] Attributed Provider 11/21/16 Lakshmi Reyes NP [address] [place] [address] PCP - General 10/30/23 Luke Garcia MD [address] [place] [address] [employer] CARDIOVASCULAR DISEASE 07/21/16 02/28/19 documented as of this encounter
[2024-12-08 11:30] VITALS: BP 145/81; PULSE 801; RESP 20; TEMP 36.4; O2SAT 97
== END 2024-12-08 11:30 | disposition home or self-care (01) ==
PROVIDERS: Emergency Provider Emergency Medicine; PCP Nurse Practitioner Family
DX: M54.42 Lumbago with sciatica, left side (principal); I50.9 Heart failure, unspecified; E11.9 Type 2 diabetes mellitus without complications; E78.5 Hyperlipidemia, unspecified; Z79.891 Long term (current) use of opiate analgesic
CPT/HCPCS: 96372; 99283; A9270; J1885; J8540